=== PATIENT | female | born 1985 | race African-American/Black ===

== ENCOUNTER → 2018-11-02 | Day surgery (SDC) | payer BC, MEDICARE ==
[2018-11-01 16:44] LABS: EOSINOPHILS # (AUTO) 0.3 (0.0-0.4); HEMATOCRIT 33.4 % (34.2-44.1); HEMOGLOBIN 10.8 g/dL (12.0-16.0); LYMPHOCYTES # (AUTO) 2.2 (1.0-3.2); LYMPHOCYTES % 53.6 % (18.0-39.1); MEAN CORPUSCULAR HEMOGLOBIN 28.5 pg (28-32); MEAN CORPUSCULAR HGB CONC 32.3 g/dL (31-35); MEAN CORPUSCULAR VOLUME 88.1 fL (81-99); MONOCYTES # (AUTO) 0.3 (0.2-0.8); MONOCYTES % 7.7 % (4.4-11.3); NEUTROPHILS # (AUTO) 1.2 (2.1-6.9); NEUTROPHILS % 29.5 % (38.7-80.0); PLATELET COUNT 184 x10e3/uL (140-360); RED BLOOD COUNT 3.79 x10e6/uL (3.6-5.1); RED CELL DISTRIBUTION WIDTH 15.7 % (11.7-14.4)
[~2018-11-02] MED LIST: BOTULINUM TOXIN TYPE A 100 UNIT VIAL IM ONE; DEXILANT60 MG PO; FENTANYL CITRATE/PF 100MCG/2 ML INJ ONE; FYCOMPA PO; KEPPRA500 MG PO; LEVOTHYROXINE75 MCG PO; LYRICA50 MG PO; MIDAZOLAM HCL 2 MG/2 ML VIAL ONE; MIRALAX119 GM PO; MORPHINE SULFATE INJ 10 MG/ML ONE; MS CONTIN15 MG PO; PHENERGAN25 MG/1 M1 PO; PROPOFOL IV EMULSION 10 MG/ML 20 ML VIAL ONE; TOPIRAMATE100 MG PO; TRAZODONE HCL50 MG PO; VIT D2 PO
--- OUTSIDE RECORDS SUMMARY | 2018-11-02 06:24 | XMS REPORT | Clinical Summary ---
Author Author [facility] Organization [facility] Address Unknown Phone Unavailable Care Team Providers Care Skin Carver Name Role Phone Belle Darling MD PCP Allergies Comments Active Allergy Reactions Severity Noted Date Codeine Hives, High 07/07/2016 Swelling, Photosensitiv ity, Shortness Of Breath Headaches headaches Ketorolac Itching, 06/14/2017 Swelling, Other (See Comments) Tramadol Hives, 01/21/2017 Swelling Medications End Date Status Medication Sig Dispensed Refills Start Date Active chlorzoxazone 375 mg Take 500 mg 0 tablet by mouth 3 (three) times a day. Active pregabalin (LYRICA) 25 MG Take 75 mg by 0 capsule mouth daily. 7 Increased to 150mg Active levothyroxine (SYNTHROID, Take 75 mcg 0 LEVOXYL) 50 mcg tablet by mouth every morning. Active DULoxetine (CYMBALTA) 30 Take 60 mg by 0 MG capsule mouth daily. Active amitriptyline (ELAVIL) 25 Take 25 mg by 0 MG tablet mouth nightly. Active topiramate (TOPAMAX) 100 Take 200 mg 0 MG tablet by mouth 2 (two) times a day. Active POLYETHYLENE GLYCOL 3350 Take 2 0 (MIRALAX ORAL) packets by mouth 2 (two) times a day. Active escitalopram (LEXAPRO) 20 Take 20 mg by 0 MG tablet mouth daily. Active dexlansoprazole Take 60 mg by 0 (DEXILANT) 60 mg capsule mouth daily. Active promethazine (PHENERGAN) Take 25 mg by 0 25 MG tablet mouth 4 (four) times a day. Active zolpidem (AMBIEN) 10 mg Take 10 mg by 0 tablet mouth nightly as needed for sleep. Active ZOLMitriptan (ZOMIG) 5 mg 1 spray into 0 nasal solution each nostril as needed for migraine. Active levETIRAcetam (KEPPRA) TAKE ONE (1) 1 1000 MG tablet TABLET(S) BY 8 MOUTH THREE TIMES A DAY. Active morPHINE (MSIR) 15 MG Take 15 mg by 0 tablet mouth every 6 (six) hours as needed for severe pain. Active clonAZEPAM (KlonoPIN) 0.5 Take 0.25 mg 0 MG tablet by mouth daily. 10/21/2019 Active ferrous gluconate Take 1 tablet 90 tablet 3 (FERGON) 324 MG tablet (324 mg 9 total) by mouth daily with breakfast. 10/21/2019 Active ergocalciferol (VITAMIN Take 1 12 capsule 3 D2) 50,000 unit capsule capsule 9 (50,000 Units total) by mouth once a week. 12/10/2017 Discontinued HYDROcodone-acetaminophen Take 1 tablet 0 (NORCO) 10-325 mg per by mouth tablet every 6 (six) hours as needed for moderate pain. 12/11/2017 Discontinued metoprolol tartrate Take 25 mg by 0 (LOPRESSOR) 25 mg tablet mouth 2 (two) 7 times a day. 12/10/2017 Discontinued ARIPiprazole (ABILIFY) 5 Take 5 mg by 0 MG tablet mouth. 10/19/2018 Discontinued ketoconazole (NIZORAL) 2 Apply 1 0 % cream application topically. 08/02/2018 Discontinued mirtazapine (REMERON) 15 Take 15 mg by 0 MG tablet mouth nightly. 03/07/2018 Discontinued propranolol (INDERAL) 40 Take 40 mg by 0 MG tablet mouth 3 (three) times a day. 03/07/2018 Discontinued pilocarpine (SALAGEN) 5 Take 5 mg by 0 MG tablet mouth 4 (four) times a day. 11/09/2017 Discontinued tiZANidine (ZANAFLEX) 4 Take 4 mg by 0 MG tablet mouth every 8 (eight) hours as needed for muscle spasms. 12/10/2017 Discontinued cholecalciferol, vitamin Take 1,000 0 D3, (VITAMIN D3) 1,000 Units by unit capsule mouth daily. 12/10/2017 Discontinued magnesium oxide 250 mg Take 250 mg 0 tablet by mouth daily. 08/02/2018 Discontinued oxyCODone-acetaminophen Take 1 tablet 0 (PERCOCET) 10-325 mg per by mouth 3 tablet (three) times a day. 12/11/2017 Discontinued pantoprazole (PROTONIX) Take 40 mg by 0 40 MG EC tablet mouth daily. 08/02/2018 Discontinued sucralfate (CARAFATE) 1 Take 1 g by 0 gram tablet mouth 4 (four) times a day. 11/24/2017 linaclotide (LINZESS) 145 Take 1 15 capsule 0 mcg capsuleIndications: capsule (145 8 Other constipation mcg total) by mouth daily before breakfast for 15 days. 12/10/2017 Discontinued methylPREDNISolone Take 4 mg by 0 (MEDROL) 4 MG tablet mouth daily. 03/07/2018 Discontinued linaclotide (LINZESS) 145 Take 1 30 capsule 3 mcg capsuleIndications: capsule (145 8 Constipation, unspecified mcg total) by constipation type mouth daily before breakfast. 12/10/2017 Discontinued ondansetron (ZOFRAN) 4 MG Take 1 tablet 120 tablet 0 tablet (4 mg total) 8 by mouth every 6 (six) hours for 30 days. 03/07/2018 Discontinued brexpiprazole (REXULTI) 2 Take 2 mg by 0 mg tablet mouth daily. 03/07/2018 Discontinued divalproex (DEPAKOTE) 500 Take 500 mg 0 MG EC tablet by mouth 3 (three) times a day. 08/02/2018 Discontinued sertraline (ZOLOFT) 50 MG Take 50 mg by 0 tablet mouth daily. Active Problems Problem Noted Date Chronic intractable pain 10/11/2018 Abnormal LFTs 07/20/2018 RUQ pain 07/20/2018 Weight loss 07/20/2018 Seizure disorder 07/20/2018 Hematemesis without nausea 08/31/2017 Chest pain 05/31/2017 Urinary retention 05/11/2017 Gastroesophageal reflux disease 04/22/2017 Dyspepsia 04/22/2017 Heme positive stool 04/22/2017 Iron deficiency anemia 04/22/2017 GI bleed 04/09/2017 Gastrointestinal hemorrhage 04/09/2017 Overview: Added automatically from request for surgery [id number] Abdominal pain 04/09/2017 Overview: Added automatically from request for surgery [id number] Gastrointestinal hemorrhage with melena 04/09/2017 Overview: Added automatically from request for surgery [id number] Encounters Care Team Description Date Type Specialty Jeremy Lujan MD Abnormal LFTs (Primary Dx); Hepatic steatosis 10/27/2018 Office Visit Hepatology Belle Darling MD Drug-seeking behavior (Primary Dx); Conversion disorder 10/25/2018 Extended Internal Medicine Medical Review Belle Darling MD 10/21/2018 Orders Only Internal Medicine Belle Darling MD Arthralgia, unspecified joint 10/19/2018 Hospital Radiology Encounter Belle Darling MD Arthralgia, unspecified joint 10/19/2018 Hospital Radiology Encounter Belle Darling MD Arthralgia, unspecified joint 10/19/2018 Hospital Radiology Encounter Belle Darling MD Arthralgia, unspecified joint 10/19/2018 Hospital Radiology Encounter Belle Darling MD Arthralgia, unspecified joint 10/19/2018 Hospital Radiology Encounter Belle Darling MD Arthralgia, unspecified joint 10/19/2018 Hospital Radiology Encounter Belle Darling MD Arthralgia, unspecified joint 10/19/2018 Hospital Radiology Encounter Belle Darling MD Arthralgia, unspecified joint 10/19/2018 Hospital Radiology Encounter Belle Darling MD Arthralgia, unspecified joint 10/19/2018 Hospital Radiology Encounter Belle Darling MD Arthralgia, unspecified joint 10/19/2018 Hospital Radiology Encounter Belle Darling MD Seizure disorder (HCC) (Primary Dx); Abdominal pain, unspecified abdominal location; Other iron deficiency anemia; Arthralgia, unspecified joint; Hypothyroidism, unspecified type; Rash 10/19/2018 Office Visit Internal Medicine Bhumika Claudio 10/12/2018 Telephone Gastroenterology Jaqui Jarrett MD Roberts, Matthew Thomas, DO Chronic intractable pain (Primary Dx) 10/11/2018 Emergency Emergency Medicine 10/11/2018 Travel Bhumika Claudio 10/04/2018 Telephone Gastroenterology N/A 08/24/2018 Intake Access Los Benavidez MD Preop cardiovascular exam 08/04/2018 Hospital Radiology Encounter Los Benavidez MD Preop cardiovascular exam (Primary Dx) 08/04/2018 Transcribe Access Orders Jeremy Lujan MD Abnormal LFTs; RUQ pain 08/02/2018 Hospital Radiology Encounter Jeremy Lujan MD Abnormal LFTs (Primary Dx); RUQ pain 07/12/2018 Office Visit Hepatology Aster Lynn MA 07/12/2018 Orders Only Hepatology Jeremy Lujan MD Abnormal LFTs (Primary Dx); RUQ pain; Weight loss; Seizure disorder (HCC) 06/20/2018 Office Visit Hepatology Christie Wing MA 06/13/2018 Telephone Access Sarah Hernandez RN Referral (referral to general hepatology) 06/10/2018 Telephone Transplant Griffin Vargas MD Elevated liver enzymes (Primary Dx) 06/09/2018 Office Visit Gastroenterology Reynaldo Cespedes MD Abnormal radiographic examination 06/06/2018 Hospital Radiology Encounter Reynaldo Cespedes MD EEG, abnormal (Primary Dx); Abnormal radiographic examination 05/31/2018 Transcribe Access Orders Corey Christianson MD Medication side effect, initial encounter (Primary Dx); Lethargy; Dizziness 03/07/2018 Emergency Emergency Medicine - 03/08/2018 Wilder Fierro MD 03/07/2018 Anesthesia Gastroenterology Event Milagros Tafoya MD ENTEROSCOPY, SINGLE BALLOON, TRANSORAL, USING OVERTUBE EITHER REMOVAL OR POSSIBLE TATTOO 03/07/2018 Surgery Gastroenterology Milagros Tafoya MD 03/07/2018 Hospital Gastroenterology Encounter Griffin Vargas MD Hematemesis without nausea (Primary Dx); Iron deficiency anemia due to chronic blood loss 01/07/2018 Office Visit Gastroenterology Harper Almazan MA 01/07/2018 Telephone Gastroenterology Harper Almazan MA 01/04/2018 Telephone Gastroenterology Harper Almazan MA 12/30/2017 Telephone Gastroenterology Ninoska Mora MD Chest pain, unspecified type (Primary Dx) 12/24/2017 Emergency Emergency Medicine Dell Mann MD Chest pain, unspecified type (Primary Dx) 12/10/2017 Hospital General Internal Medicine - Encounter 12/11/2017 Harper Almazan MA 12/10/2017 Telephone Gastroenterology Steve Bonds MD Abdominal pain, right upper quadrant 12/08/2017 Hospital Radiology Encounter Steve Bonds MD Abdominal pain, right upper quadrant (Primary Dx) 12/07/2017 Transcribe Access Orders Ray Mcdaniels MD Chronic abdominal pain (Primary Dx); Non-intractable vomiting with nausea, unspecified vomiting type 12/04/2017 Emergency Emergency Medicine - 12/05/2017 Griffin Vargas MD Constipation, unspecified constipation type (Primary Dx); Generalized abdominal pain; Hematemesis without nausea; Other constipation 11/30/2017 Office Visit Gastroenterology Griffin Vargas MD 11/30/2017 Telephone Gastroenterology Griffin Vargas MD 11/30/2017 Telephone Gastroenterology Jose Angel Wilson DO Sprain of low back, initial encounter (Primary Dx) 11/23/2017 Emergency Emergency Medicine Griffin Vargas MD Left upper quadrant pain; Lower abdominal pain 11/15/2017 Hospital Radiology Encounter Griffin Vargas MD Left upper quadrant pain; Lower abdominal pain 11/15/2017 Hospital Radiology Encounter Griffin Vargas MD Other constipation (Primary Dx); Left upper quadrant pain; Lower abdominal pain; Hematemesis without nausea 11/09/2017 Office Visit Gastroenterology Griffin Vargas MD 11/09/2017 Telephone Gastroenterology Harper Almazan MA 11/08/2017 Telephone Gastroenterology after 11/01/2017 Immunizations Name Dates Previously Given Next Due FLUCELVAX QUAD PF (0.5mL 09/03/2017 syringe) Family History Medical History Relation Name Comments Heart disease Father Diabetes Mother Relation Name Status Comments Father Mother Alive Social History Date Tobacco Use Types Packs/Day Years Used Never Smoker Smokeless Tobacco: Never Used Alcohol Use Drinks/Week oz/Week Comments No Sex Assigned at Date Recorded Not on file Industry Job Start Date Occupation Not on file Not on file Not on file Travel End Travel History Travel Start No recent travel history available. Last Filed Vital Signs Time Taken Vital Sign Reading 10/27/2018 10:41 AM CDT Blood Pressure 125/68 10/27/2018 10:41 AM CDT Pulse 68 10/11/2018 8:20 AM [facility] Temperature 35.6 C (96.1 F) 10/11/2018 8:20 AM [facility] Respiratory Rate 18 10/19/2018 11:18 AM [facility] Oxygen Saturation 100% - Inhaled Oxygen - Concentration 10/27/2018 10:41 AM CDT Weight 89.2 kg (196 lb 9.6 oz) 10/27/2018 10:41 AM CDT Height 170.2 cm (5' 7") 10/27/2018 10:41 AM CDT Body Mass Index 30.79 Plan of Treatment Care Team Description Date Type Specialty Belle Darling MD [address] [facility] [address] [place], [place] [id number] 11/07/2018 Office Visit Internal Medicine Belle Darling MD [address] [facility] [address] [place], [place] [id number] 11/08/2018 Office Visit Internal Medicine Jeremy Lujan MD [address] [facility] [address] [place], [place] [id number] 05/04/2019 Office Visit Hepatology Health Maintenance Due Date Last Done Comments CERVICAL CANCER SCREENING 2005 INFLUENZA VACCINE 03/16/2018 09/03/2017 Procedures Comments Procedure Name Priority Date/Time Associated Diagnosis XR WRIST 3VW BILATERAL Routine 10/19/2018 Arthralgia, unspecified 3:58 PM [facility] joint XR SHOULDERS BILATERAL Routine 10/19/2018 Arthralgia, unspecified 3:57 PM [facility] joint XR HANDS 3 VW BILATERAL Routine 10/19/2018 Arthralgia, unspecified 3:57 PM [facility] joint XR ELBOW 2 VW RIGHT Routine 10/19/2018 Arthralgia, unspecified 3:57 PM [facility] joint XR ELBOW 2 VW LEFT Routine 10/19/2018 Arthralgia, unspecified 3:57 PM [facility] joint XR ANKLE 3 VW BILATERAL Routine 10/19/2018 Arthralgia, unspecified 3:56 PM [facility] joint XR SACROILIAC JOINTS 3+ Routine 10/19/2018 Arthralgia, unspecified VW 3:56 PM [facility] joint XR KNEE 3 VW BILATERAL Routine 10/19/2018 Arthralgia, unspecified 3:56 PM [facility] joint XR HIPS BILATERAL AP Routine 10/19/2018 Arthralgia, unspecified LATERAL W AP PELVIS 3:55 PM [facility] joint XR FOOT 3 VW BILATERAL Routine 10/19/2018 Arthralgia, unspecified 3:55 PM [facility] joint URINALYSIS, MICRO UA Routine 10/19/2018 SCREEN WITH MICROSCOPY 12:37 PM [facility] TSH REFLEX TO T4F Routine 10/19/2018 Hypothyroidism, 12:37 PM [facility] unspecified type SEDIMENTATION RATE Routine 10/19/2018 Arthralgia, unspecified 12:37 PM [facility] joint C-REACTIVE PROTEIN Routine 10/19/2018 Arthralgia, unspecified 12:37 PM [facility] joint KESHIA CASCADING REFLEX Routine 10/19/2018 Arthralgia, unspecified 12:37 PM [facility] joint TOTAL IRON BINDING Routine 10/19/2018 Other iron deficiency CAPACITY 12:37 PM [facility] anemia RETICULOCYTE COUNT, Routine 10/19/2018 Other iron deficiency AUTOMATED 12:37 PM [facility] anemia LDH Routine 10/19/2018 Other iron deficiency 12:37 PM [facility] anemia HAPTOGLOBIN Routine 10/19/2018 Other iron deficiency 12:37 PM [facility] anemia FERRITIN LEVEL Routine 10/19/2018 Other iron deficiency 12:37 PM [facility] anemia VITAMIN B12 LEVEL Routine 10/19/2018 Other iron deficiency 12:37 PM [facility] anemia VITAMIN D 25 HYDROXY Routine 10/19/2018 Abdominal pain, LEVEL 12:37 PM [facility] unspecified abdominal location HIV 1/2 ANTIGEN/ANTIBODY, Routine 10/19/2018 Abdominal pain, FOURTH GENERATION W/RFL 12:37 PM [facility] unspecified abdominal location HEMOGLOBIN A1C Routine 10/19/2018 Abdominal pain, 12:37 PM [facility] unspecified abdominal location COMPREHENSIVE METABOLIC Routine 10/19/2018 Other iron deficiency PANEL 12:37 PM [facility] anemia CBC WITH PLATELET AND Routine 10/19/2018 Other iron deficiency DIFFERENTIAL 12:37 PM [facility] anemia XR ANKLE 3+ VW RIGHT STAT 10/11/2018 9:19 AM [facility] XR HIP 2-3 VIEWS LEFT STAT 10/11/2018 9:16 [address] [facility] [address] ABDOMEN PELVIS W STAT 10/11/2018 CONTRAST 8:58 AM [facility] GRAM STAIN Routine 10/11/2018 8:10 AM [facility] URINE CULTURE Routine 10/11/2018 8:10 AM [facility] URINE DRUGS OF ABUSE STAT 10/11/2018 SCREEN 7:29 AM [facility] HCG QUALITATIVE, URINE Routine 10/11/2018 SCREEN 7:29 AM [facility] URINALYSIS SCREEN AND Routine 10/11/2018 MICROSCOPY, WITH REFLEX 7:29 AM [facility] TO CULTURE US DUPLEX VENOUS LOWER STAT 10/11/2018 EXTREMITY LEFT 6:01 AM [facility] ESTIMATED GFR STAT 10/11/2018 6:00 AM [facility] ALCOHOL LEVEL, BLOOD STAT 10/11/2018 6:00 AM [facility] LIPASE LEVEL STAT 10/11/2018 6:00 AM [facility] COMPREHENSIVE METABOLIC STAT 10/11/2018 PANEL 6:00 AM [facility] PARTIAL THROMBOPLASTIN STAT 10/11/2018 TIME (PTT) 6:00 AM [facility] PROTHROMBIN TIME WITH INR STAT 10/11/2018 6:00 AM [facility] HC COMPLETE BLD COUNT STAT 10/11/2018 W/AUTO DIFF 6:00 AM [facility] ECG 12-LEAD Routine 08/04/2018 Preop cardiovascular exam 6:53 PM [facility] XR CHEST 2 VW Routine 08/04/2018 Preop cardiovascular exam 6:12 PM [facility] SURGICAL PATHOLOGY Routine 08/02/2018 REQUEST 4:30 PM [facility] IR TRANSJUGULAR LIVER Routine 08/02/2018 Abnormal LFTs BIOPSY 12:31 PM [facility] RUQ pain F-ACTIN (SMOOTH MUSCLE) Routine 07/04/2018 Abnormal LFTs ANTIBODY, IGG 12:00 AM [facility] RUQ pain Weight loss Seizure disorder (HCC) KESHIA SCREEN W IFA W REFLEX Routine 07/04/2018 Abnormal LFTs TO TITER 12:00 AM [facility] RUQ pain Weight loss Seizure disorder (HCC) MITOCHONDRIAL ANTIBODY Routine 07/04/2018 Abnormal LFTs W/REFL TITER 12:00 AM [facility] RUQ pain Weight loss Seizure disorder (HCC) GGT Routine 07/04/2018 Abnormal LFTs 12:00 AM [facility] RUQ pain Weight loss Seizure disorder (HCC) IMMUNOGLOBULIN G, A, M Routine 07/04/2018 Abnormal LFTs 12:00 AM [facility] RUQ pain Weight loss Seizure disorder (HCC) PROTHROMBIN TIME WITH INR Routine 07/04/2018 Abnormal LFTs 12:00 AM [facility] RUQ pain Weight loss Seizure disorder (HCC) CBC WITH PLATELET AND Routine 07/04/2018 Abnormal LFTs DIFFERENTIAL 12:00 AM [facility] RUQ pain Weight loss Seizure disorder (HCC) COMPREHENSIVE METABOLIC Routine 07/04/2018 Abnormal LFTs PANEL 12:00 AM [facility] RUQ pain Weight loss Seizure disorder (HCC) MRI ABDOMEN WO CONTRAST Routine 06/06/2018 Abnormal radiographic 9:25 AM CDT examination ESTIMATED GFR Routine 05/10/2018 2:29 PM CDT T3, FREE Routine 05/10/2018 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 TRANSFERRIN LEVEL Routine 05/10/2018 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 TOTAL IRON BINDING Routine 05/10/2018 Relative anemia CAPACITY 2:29 PM CDT Myxedema heart disease FERRITIN LEVEL Routine 05/10/2018 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 BASIC METABOLIC PANEL Routine 05/10/2018 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 HC COMPLETE BLD COUNT Routine 05/10/2018 Relative anemia W/AUTO DIFF 2:29 PM CDT Myxedema heart disease T4, FREE Routine 05/10/2018 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 THYROID STIMULATING Routine 05/10/2018 Relative anemia HORMONE 2:29 PM CDT Myxedema heart disease ZZESTIMATED GFR Routine 03/16/2018 12:16 PM CDT HEPATITIS C ANTIBODY Routine 03/16/2018 Anemia, unspecified type 12:16 PM CDT HIV 1, 2 ANTIBODY Routine 03/16/2018 Anemia, unspecified type 12:16 PM CDT HEPATITIS B SURFACE Routine 03/16/2018 Anemia, unspecified type ANTIBODY 12:16 PM CDT METHYLMALONIC ACID, SERUM Routine 03/16/2018 Anemia, unspecified type 12:16 PM CDT VITAMIN B12 LEVEL Routine 03/16/2018 Anemia, unspecified type 12:16 PM CDT MICROALBUMIN, URINE, Routine 03/16/2018 Anemia, unspecified type RANDOM 12:16 PM CDT URINALYSIS, AUTOMATED Routine 03/16/2018 Anemia, unspecified type WITH MICROSCOPY 12:16 PM CDT VALPROIC ACID LEVEL Routine 03/16/2018 Anemia, unspecified type 12:16 PM CDT HEMOGLOBIN A1C Routine 03/16/2018 Anemia, unspecified type 12:16 PM CDT T4, FREE Routine 03/16/2018 Anemia, unspecified type 12:16 PM CDT T3, FREE Routine 03/16/2018 Anemia, unspecified type 12:16 PM CDT THYROID STIMULATING Routine 03/16/2018 Anemia, unspecified type HORMONE 12:16 PM CDT LIPID PANEL Routine 03/16/2018 Anemia, unspecified type 12:16 PM CDT COMPREHENSIVE METABOLIC Routine 03/16/2018 Anemia, unspecified type PANEL 12:16 PM CDT VITAMIN D 25 HYDROXY Routine 03/16/2018 Anemia, unspecified type LEVEL 12:16 PM CDT EEG AWAKE/DROWSY LESS STAT 03/07/2018 THAN 41 MIN 11:16 PM CDT POC GLUCOSE Routine 03/07/2018 10:32 PM CDT ECG 12-LEAD STAT 03/07/2018 9:56 PM CDT MRA HEAD WO CONTRAST STAT 03/07/2018 8:07 PM CDT MRA NECK WO CONTRAST STAT 03/07/2018 8:07 PM CDT MRI BRAIN W WO CONTRAST STAT 03/07/2018 8:06 PM CDT LIPASE LEVEL Routine 03/07/2018 5:45 PM CDT ZZESTIMATED GFR Routine 03/07/2018 5:45 PM CDT TROPONIN Routine 03/07/2018 5:45 PM CDT COMPREHENSIVE METABOLIC Routine 03/07/2018 PANEL 5:45 PM CDT HC COMPLETE BLD COUNT Routine 03/07/2018 W/AUTO DIFF 5:45 PM CDT POC GLUCOSE Routine 03/07/2018 5:38 PM CDT XR CHEST 1 VW PORTABLE STAT 03/07/2018 5:[address] HEAD WO CONTRAST STAT 03/07/2018 4:06 PM CDT POC GLUCOSE Routine 03/07/2018 1:44 PM CDT ENTEROSCOPY, SINGLE 03/07/2018 Abnormal finding on GI BALLOON, TRANSORAL, USING 10:00 AM CDT tract imaging OVERTUBE Epigastric pain Anemia Melena Nausea Weight loss Neoplasm of small intestine TROPONIN STAT 12/24/2017 9:26 PM CDT URINALYSIS SCREEN AND STAT 12/24/2017 MICROSCOPY, WITH REFLEX 8:14 PM CDT TO CULTURE URINE CULTURE STAT 12/24/2017 8:11 PM CDT ECG ED PRELIMINARY Routine 12/24/2017 INTERPRETATION 7:36 PM CDT HCG QUALITATIVE, SERUM STAT 12/24/2017 SCREEN 5:20 PM CDT ZZESTIMATED GFR STAT 12/24/2017 5:20 PM CDT B NATRIURETIC PEPTIDE STAT 12/24/2017 5:20 PM CDT TROPONIN STAT 12/24/2017 5:20 PM CDT COMPREHENSIVE METABOLIC STAT 12/24/2017 PANEL 5:20 PM CDT HC COMPLETE BLD COUNT STAT 12/24/2017 W/AUTO DIFF 5:20 PM CDT XR CHEST 2 VW STAT 12/24/2017 5:10 PM CDT ECG 12-LEAD STAT 12/24/2017 4:49 PM CDT ECG 12-LEAD Routine 12/11/2017 2:06 PM CDT ECHOCARDIOGRAM 2D Routine 12/11/2017 COMPLETE W MMODE SPECTRAL 1:29 PM CDT COLOR DOPPLER ([id number]) TROPONIN Timed 12/11/2017 10:34 AM CDT ECG 12-LEAD Routine 12/11/2017 8:30 AM CDT ZZESTIMATED GFR Routine 12/11/2017 12:17 AM CDT TROPONIN Timed 12/11/2017 12:17 AM CDT LIPID PANEL Routine 12/11/2017 12:17 AM CDT BASIC METABOLIC PANEL Routine 12/11/2017 12:17 AM CDT CBC HEMOGRAM Routine 12/11/2017 12:17 AM CDT US ABDOMEN COMPLETE Routine 12/08/2017 Abdominal pain, right 2:49 PM CDT upper quadrant ZZESTIMATED GFR STAT 12/04/2017 11:56 PM CDT LIPASE LEVEL STAT 12/04/2017 11:56 PM CDT HC COMPLETE BLD COUNT STAT 12/04/2017 W/AUTO DIFF 11:56 PM CDT COMPREHENSIVE METABOLIC STAT 12/04/2017 PANEL 11:56 PM CDT URINALYSIS SCREEN AND Routine 12/04/2017 MICROSCOPY, WITH REFLEX 9:30 PM CDT TO CULTURE URINE CULTURE Routine 12/04/2017 9:10 PM CDT XR LUMBAR SPINE 2 OR 3 VW STAT 11/23/2017 2:12 PM CDT MRI PELVIS W WO CONTRAST Routine 11/15/2017 Left upper quadrant pain 10:41 AM CDT Lower abdominal pain MRI ABDOMEN W WO CONTRAST Routine 11/15/2017 Left upper quadrant pain 10:07 AM CDT Lower abdominal pain after 11/01/2017 Results * XR Wrist 3Vw Bilateral (10/19/2018 3:58 PM [facility]) Narrative Performed At EXAMINATION: XR WRIST 3VW BILATERAL HM [facility] INDICATION: M25.50 Pain in unspecified joint, joint pains COMPARISON: None IMPRESSION: 3 views of each wrist were obtained. No radiographically visible fracture or dislocation. No significant joint space narrowing. No subluxations. [facility]-[id number] Procedure Note Interface, Radiology Results Incoming - 10/19/2018 4:06 PM [facility] EXAMINATION: XR WRIST 3VW BILATERAL INDICATION: M25.50 Pain in unspecified joint, joint pains COMPARISON: None IMPRESSION: 3 views of each wrist were obtained. No radiographically visible fracture or dislocation. No significant joint space narrowing. No subluxations. [facility]-[id number] Performing Organization Address [facility] Phone Number [facility] [address] [place] [address] * XR Shoulders Bilateral (10/19/2018 3:57 PM [facility]) Narrative Performed At EXAMINATION: XR SHOULDERS BILATERAL [facility] INDICATION: M25.50 Pain in unspecified joint, joint pains COMPARISON: None IMPRESSION: 3 views of each shoulder were obtained. No significant joint space narrowing. No evidence of arthrosis. No visible fracture or dislocation. [facility]-[id number] Procedure Note Interface, Radiology Results Incoming - 10/19/2018 4:04 PM [facility] EXAMINATION: XR SHOULDERS BILATERAL INDICATION: M25.50 Pain in unspecified joint, joint pains COMPARISON: None IMPRESSION: 3 views of each shoulder were obtained. No significant joint space narrowing. No evidence of arthrosis. No visible fracture or dislocation. [facility]-[id number] Performing Organization Address [facility] [facility] Phone Number RADIANT [address] [place] [address] * XR Hands 3 Vw Bilateral (10/19/2018 3:57 PM [facility]) Narrative Performed At EXAMINATION:XR HANDS 3 VW BILATERAL HM RADIANT CLINICAL HISTORY:M25.50 Pain in unspecified joint, joint pains COMPARISON:None. TECHNIQUE: AP, lateral, and oblique bilateral hand radiographs are reviewed. FINDINGS: The joint spaces and alignment are normal. Bone mineralization is normal. There is no bone erosion or other focal or aggressive bone lesion. An old posttraumatic deformity of the right fifth metacarpal is noted. No soft tissue abnormality is seen. IMPRESSION: No radiographic stigmata of degenerative, inflammatory, or crystal deposition arthropathy. [facility]-[id number] Procedure Note Interface, Radiology Results Incoming - 10/19/2018 4:45 PM [facility] EXAMINATION: XR HANDS 3 VW BILATERAL CLINICAL HISTORY: M25.50 Pain in unspecified joint, joint pains COMPARISON: None. TECHNIQUE: AP, lateral, and oblique bilateral hand radiographs are reviewed. FINDINGS: The joint spaces and alignment are normal. Bone mineralization is normal. There is no bone erosion or other focal or aggressive bone lesion. An old posttraumatic deformity of the right fifth metacarpal is noted. No soft tissue abnormality is seen. IMPRESSION: No radiographic stigmata of degenerative, inflammatory, or crystal deposition arthropathy. [facility]-[id number] Performing Organization Address [facility] Phone Number [facility]ANT [address] [place] [address] * XR Elbow 2 Vw Right (10/19/2018 3:57 PM [facility]) Narrative Performed At EXAMINATION: XR ELBOW 2 VW RIGHT RADIANT INDICATION: M25.50 Pain in unspecified joint, joint pains COMPARISON: None IMPRESSION: 2 views of the right elbow were obtained. Osseous mineralization is within normal limits. No visible acute fracture or dislocation. No significant arthrosis. [facility]-[id number] Procedure Note Interface, Radiology Results Incoming - 10/19/2018 4:02 PM [facility] EXAMINATION: XR ELBOW 2 VW RIGHT INDICATION: M25.50 Pain in unspecified joint, joint pains COMPARISON: None IMPRESSION: 2 views of the right elbow were obtained. Osseous mineralization is within normal limits. No visible acute fracture or dislocation. No significant arthrosis. [facility]-[id number] Performing Organization Address [facility] Phone Number RADIANT [address] [place] [address] * XR Elbow 2 Vw Left (10/19/2018 3:57 PM [facility]) Narrative Performed At EXAMINATION: XR ELBOW 2 VW LEFT RADIANT INDICATION: M25.50 Pain in unspecified joint, joint pains COMPARISON: None IMPRESSION: 2 views of the left elbow were obtained. Osseous mineralization within normal limits. No significant arthrosis. No visible erosions. No visible fracture or dislocation. [facility]-[id number] Procedure Note Interface, Radiology Results Incoming - 10/19/2018 4:01 PM [facility] EXAMINATION: XR ELBOW 2 VW LEFT INDICATION: M25.50 Pain in unspecified joint, joint pains COMPARISON: None IMPRESSION: 2 views of the left elbow were obtained. Osseous mineralization within normal limits. No significant arthrosis. No visible erosions. No visible fracture or dislocation. [facility]-[id number] Performing Organization Address [facility] Phone Number RADIANT [address] [place] [address] * XR Ankle 3 Vw Bilateral (10/19/2018 3:56 PM [facility]) Narrative Performed At EXAMINATION:XR ANKLE 3 VW BILATERAL HM RADIANT CLINICAL HISTORY:M25.50 Pain in unspecified joint, joint pains COMPARISON:None. IMPRESSION: Bones are well-mineralized. No fracture or dislocation. Each ankle mortise is maintained. The soft tissues are unremarkable. [facility]-[id number] Procedure Note Interface, Radiology Results Incoming - 10/19/2018 4:56 PM [facility] EXAMINATION: XR ANKLE 3 VW BILATERAL CLINICAL HISTORY: M25.50 Pain in unspecified joint, joint pains COMPARISON: None. IMPRESSION: Bones are well-mineralized. No fracture or dislocation. Each ankle mortise is maintained. The soft tissues are unremarkable. [id number] Performing Organization Address [facility] Phone Number RADIANT [address] [place] [address] * XR Sacroiliac Joints 3+ Vw (10/19/2018 3:56 PM [facility]) Narrative Performed At EXAMINATION: XR SACROILIAC JOINTS 3VW HM RADIANT CLINICAL HISTORY: M25.50 Pain in unspecified joint, joint pains COMPARISON: CT of the abdomen and pelvis from October 11, 2018. FINDINGS: There are degenerative changes of the sacroiliac joints seen better on the CT exam with some sclerosis in the bone surrounding the joints and some areas of joint space narrowing. The CT exam also showed some areas of lucency in the anterior upper right sacrum which could be from areas of healing fracture and shows a large area of sclerosis in the regions around the screws in the upper sacrum and around the graft material in the L5-S1 disc. There are prevertebral clips at the upper S1 level and visualized lower lumbar region. IMPRESSION: Degenerative changes of sacroiliac joints seen better on the prior CT exam. Postoperative changes in the lumbar and upper sacral region. [facility]-[id number] Procedure Note Interface, Radiology Results Incoming - 10/19/2018 4:23 PM [facility] EXAMINATION: XR SACROILIAC JOINTS 3 VW CLINICAL HISTORY: M25.50 Pain in unspecified joint, joint pains COMPARISON: CT of the abdomen and pelvis from October 11, 2018. FINDINGS: There are degenerative changes of the sacroiliac joints seen better on the CT exam with some sclerosis in the bone surrounding the joints and some areas of joint space narrowing. The CT exam also showed some areas of lucency in the anterior upper right sacrum which could be from areas of healing fracture and shows a large area of sclerosis in the regions around the screws in the upper sacrum and around the graft material in the L5-S1 disc. There are prevertebral clips at the upper S1 level and visualized lower lumbar region. IMPRESSION: Degenerative changes of sacroiliac joints seen better on the prior CT exam. Postoperative changes in the lumbar and upper sacral region. [facility]-[id number] Performing Organization Address City/[employer] Phone Number RADIANT [address] [place] [address] * XR Knee 3 Vw Bilateral (10/19/2018 3:56 PM [facility]) Narrative Performed At EXAMINATION: XR KNEE 3 VW BILATERAL HM RADIANT INDICATION: M25.50 Pain in unspecified joint, joint pains COMPARISON: None IMPRESSION: 3 views of each knee were obtained. 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 No visible erosions. No fracture or dislocation. [facility]-[id number] Procedure Note Interface, Radiology Results Incoming - 10/19/2018 4:05 PM [facility] EXAMINATION: XR KNEE 3 VW BILATERAL INDICATION: M25.50 Pain in unspecified joint, joint pains COMPARISON: None IMPRESSION: 3 views of each knee were obtained. 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 No visible erosions. No fracture or dislocation. [facility]-[id number] Performing Organization Address City/[employer]/[facility] Phone Number [facility] [address] [place] [address] * XR Hips Bilateral Ap Lateral W Ap Pelvis (10/19/2018 3:55 PM [facility]) Narrative Performed At EXAMINATION: XR HIPS BILATERAL AP LATERAL W AP PELVIS HM RADIANT INDICATION: M25.50 Pain in unspecified joint, joint pains COMPARISON: None IMPRESSION: A frontal view of the pelvis and lateral views of each hip were obtained. Prior lumbosacral instrumentation. Mild arthrosis involving the right more than left sacroiliac joints. No significant arthrosis involving either hip. Anastomotic suture rows in the pelvis. [facility]-[id number] Procedure Note Interface, Radiology Results Incoming - 10/19/2018 4:03 PM [facility] EXAMINATION: XR HIPS BILATERAL AP LATERAL W AP PELVIS INDICATION: M25.50 Pain in unspecified joint, joint pains COMPARISON: None IMPRESSION: A frontal view of the pelvis and lateral views of each hip were obtained. Prior lumbosacral instrumentation. Mild arthrosis involving the right more than left sacroiliac joints. No significant arthrosis involving either hip. Anastomotic suture rows in the pelvis. [facility]-[id number] Performing Organization Address [facility] Phone Number [facility] [address] [place] [address] * XR Foot 3 Vw Bilateral (10/19/2018 3:55 PM [facility]) Narrative Performed At EXAMINATION:XR FOOT 3 VW BILATERAL HM RADIANT CLINICAL HISTORY:M25.50 Pain in unspecified joint, joint pains COMPARISON:None. TECHNIQUE: AP, lateral, and oblique bilateral foot radiographs are reviewed. FINDINGS: There is no fracture, subluxation, joint space abnormality, focal bone lesion, or soft tissue abnormality. IMPRESSION: No radiographic stigmata of degenerative, inflammatory, or crystal deposition arthropathy in the feet. [id number] Procedure Note Interface, Radiology Results Incoming - 10/19/2018 4:46 PM [facility] EXAMINATION: XR FOOT 3 VW BILATERAL CLINICAL HISTORY: M25.50 Pain in unspecified joint, joint pains COMPARISON: None. TECHNIQUE: AP, lateral, and oblique bilateral foot radiographs are reviewed. FINDINGS: There is no fracture, subluxation, joint space abnormality, focal bone lesion, or soft tissue abnormality. IMPRESSION: No radiographic stigmata of degenerative, inflammatory, or crystal deposition arthropathy in the feet. [id number] Performing Organization Address City/[facility]/Zipcode Phone Number JARRETTANT [address] [place] [address] * KESHIA CASCADING REFLEX (10/19/2018 12:37 PM [facility]) KESHIA screen NEGATIVE NEGATIVE [facility] Comment: [facility] A negative KESHIA Multiplex, with II Reflex to 11 Antibody [place] indicates the absence of detectable antibodies to component analytes consisting of double stranded DNA (dsDNA), chromatin, ribonucleoprotein (BENDER MACHINE), Hernandez/BENDER MACHINE (Sm/BENDER MACHINE), Hernandez (Sm), SS-A, SS-B, Halley-1, centromere B, Scl-70 and ribosomal P. A negative result should be interpreted in the context of the clinical and laboratory findings and does not rule out autoimmune disease characterized by other autoantibody specificities such as rheumatoid arthritis, autoimmune hepatitis, primary biliary cirrhosis, autoimmune thyroiditis, Reilly's disease, pernicious anemia, autoimmune neuropathies, vasculitis, celiac disease, and bullous disease. Visit Physician FAQs for interpretation of all antibodies in the [place], prevalence, and association with diseases at http://education.app2you/ faq/PBE100 Specimen Blood Resulting Agency Comment Performing Organization Information: Site ID: IG Name: [facility] Address: [address] [place] [phone] Director: Dr. Ninoska Person Performing Organization Address [facility] Phone Number Every1Mobile[address] [address] II * TSH reflex to T4 (10/19/2018 12:37 PM [facility]) TSH reflex to FT4 1.26 mIU/L [facility] Comment: [place] Reference Range > or=20 Years0.40-4.50 Ranges First trimester0.26-2.66 Second trimester 0.55-2.73 Third trimester0.43-2.91 Specimen Blood Resulting Agency Comment Performing Organization Information: Site ID: RGA Name: [facility] Address: [address] [place] [phone] Director: Julieta Zavaleta Performing Organization Address [facility] Phone Number Every1Mobile [address] [address] * HIV 1/2 ANTIGEN/ANTIBODY, FOURTH GENERATION W/RFL (10/19/2018 12:37 PM [facility]) HIV AG/AB 4th gen NON-REACTIVE NON-REACTIVE [facility] Comment: [place] HIV-1 antigen and HIV-1/HIV-2 antibodies were not detected. There is no laboratory evidence of HIV infection. PLEASE NOTE: This information has been disclosed to you from records whose confidentiality may be protected by state law.If your state requires such protection, then the state law prohibits you from making any further disclosure of the information without the specific written consent of the person to whom it pertains, or as otherwise permitted by law. A general authorization for the release of medical or other information is NOT sufficient for this purpose. For additional information please refer to http://education.Total Immersion.[employer]i/faq/XAQ589 (This link is being provided for informational/ educational purposes only.) The performance of this assay has not been clinically validated in patients less than 2 years old. Resulting Agency Comment Performing Organization Information: Site ID: RGA Name: [facility] Address: [address] [place] [phone] Director: Julieta Zavaleta Performing Organization Address City/State/Zipcode Phone Number Every1Mobile [address] [address] * Urinalysis, micro UA screen with microscopy (10/19/2018 12:37 PM [facility]) WBC, UA NONE SEEN < OR=5 /HPF [facility] [place] RBC, UA NONE SEEN < OR=2 /HPF [facility] [place] Squamous epithelial NONE SEEN < OR=5 /HPF [facility] cells, UA [place] Bacteria, UA NONE SEEN NONE SEEN /HPF [facility] [place] Hyaline casts, UA NONE SEEN NONE SEEN /LPF [facility] [place] Resulting Agency Comment Performing Organization Information: Site ID: RGA Name: [facility] Address: [address] [place] [phone] Director: Julieta Zavaleta Performing Organization Address City/[facility]/Zipcode Phone Number Every1Mobile [address] [address] * Total iron binding capacity (10/19/2018 12:37 PM [facility]) Only the most recent of 2 results within the time period is included. Iron level 44 40 - 190 mcg/dL [facility] [place] Iron binding capacity 319 250 - 450 mcg/dL (calc) [facility] [place] Iron saturation 14 11 - 50 % (calc) [facility] [place] Specimen Blood Resulting Agency Comment Performing Organization Information: Site ID: TY Name: [facility] Address: [address] [place] [phone] Director: Julieta Zavaleta Performing Organization Address [facility] Phone Number [facility] [place] [address] * Reticulocyte count, automated (10/19/2018 12:37 PM [facility]) Retic count, manual 1.5 % [facility] [place] Retic absolute, auto 53,400 20,000 - 80,000 cells/uL [facility] [place] Specimen Blood Resulting Agency Comment Performing Organization Information: Site ID: [facility] Name: [facility] Address: [address] [place] [phone] Director: Julieta Zavaleta Performing Organization Address [facility] Phone Number [facility] [place] [address] * Vitamin D 25 hydroxy level (10/19/2018 12:37 PM [facility]) Only the most recent of 2 results within the time period is included. Vitamin D, 25-hydroxy 6 (L) 30 - 100 ng/mL [facility] Comment: [place] Vitamin D Status 25-OH Vitamin D: Deficiency: <20 ng/mL Insufficiency: 20 - 29 ng/mL Optimal: > or=30 ng/mL For 25-OH Vitamin D testing on patients on D2-supplementation and patients for whom quantitation of D2 and D3 fractions is required, the QuestAssureD(TM) 25-OH VIT D, (D2,D3), LC/MS/MS is recommended: order code 39995 (patients >2yrs). For more information on this test, go to: http://education.Total Immersion.com/faq/HJJ664 (This link is being provided for informational/educational purposes only.) Specimen Blood Resulting Agency Comment Performing Organization Information: Site ID: [facility] Name: [facility] Address: [address] [place], [place] [phone] Director: Julieta Zavaleta Performing Organization Address City/[facility]/Zipcode Phone Number [employer] [place] [address] [place] [address] * Sedimentation rate (10/19/2018 12:37 PM [facility]) Sedimentation rate 9 < OR=20 mm/h [facility] [employer] [place] Specimen Blood Resulting Agency Comment Performing Organization Information: Site ID: RGA Name: [email or web address] Address: [address] [place] [phone] Director: Julieta Zavaleta Performing Organization Address City/[facility] Phone Number [employer] [place] [address] [place] [address] * CBC with platelet and differential (10/19/2018 12:37 PM [facility]) Only the most recent of 7 results within the time period is included. WBC 4.0 3.8 - 10.8 Thousand/uL [facility] [employer] [place] RBC 3.56 (L) 3.80 - 5.10 Million/uL [facility] [place] HGB 10.2 (L) 11.7 - 15.5 g/dL [facility] HCT 31.5 (L) 35.0 - 45.0 % [facility] [place] MCV 88.5 80.0 - 100.0 fL [facility] [place] MCH 28.7 27.0 - 33.[address] [facility] MCHC 32.4 32.0 - 36.0 g/dL [facility] [place] RDW 15.4 (H) 11.0 - 15.0 % [facility] [place] Platelet count 237 140 - 400 Thousand/uL [facility] [employer] [place] MPV 11.6 7.5 - 12.5 fL [facility] [place] Neutrophils, absolute 2,280 1,500 - 7,800 cells/uL [facility] [place] Lymphocytes, absolute 1,244 850 - 3,900 cells/uL [facility] [place] Monocytes, absolute 192 (L) 200 - 950 cells/uL [facility] [place] Eosinophils, absolute 232 15 - 500 cells/uL [facility] [place] Basophils, absolute 52 0 - 200 cells/uL [facility] [place] Neutrophils 57 % [facility] [place] Lymphocytes 31.1 % [facility] [place] Monocytes 4.8 % [facility] [place] Eosinophils 5.8 % [facility] [place] Basophils + RC 1.3 % [facility] [place] Specimen Blood Resulting Agency Comment Performing Organization Information: Site ID: RGA Name: [facility] Address: [address] [place] [phone] Director: Julieta Zavaleta Performing Organization Address [facility] [place] [address] * C-reactive protein (10/19/2018 12:37 PM [facility]) CRP 11.6 (H) <8.0 mg/L [facility] [place] Specimen Blood Resulting Agency Comment Performing Organization Information: Site ID: A Name: [facility] Address: [address] [place] [phone] Director: Julieta Zavaleta Performing Organization Address [facility] [place] [address] * LDH (10/19/2018 12:37 PM [facility]) LDH 196 100 - 200 U/L [facility] [place] Specimen Blood Resulting Agency Comment Performing Organization Information: Site ID: A Name: [facility] Address: [address] [place] [phone] Director: Julieta Zavaleta Performing Organization Address [facility] [place] [address] * Hemoglobin A1c (10/19/2018 12:37 PM [facility]) Only the most recent of 2 results within the time period is included. Hemoglobin A1C 5.1 <5.7 % of total Hgb [facility] Comment: [place] For the purpose of screening for the presence of diabetes: <5.7% Consistent with the absence of diabetes 5.7-6.4%Consistent with increased risk for diabetes (predi abetes) > or=6.5%Consistent with diabetes This assay result is consistent with a decreased risk of diabetes. Currently, no consensus exists regarding use of hemoglobin A1c for diagnosis of diabetes in children. According to [place] Diabetes Association (ADA) guidelines, hemoglobin A1c <7.0% represents optimal control in non- diabetic patients. Different metrics may apply to specific patient populations. Standards of Medical Care in Diabetes(ADA). Specimen Blood Resulting Agency Comment Performing Organization Information: Site ID: A Name: [facility] Address: [address] [place] [phone] Director: Julieta Zavaleta Performing Organization Address [facility] Phone Number Every1Mobile [address] [address] * Haptoglobin (10/19/2018 12:37 PM [facility]) Haptoglobin 83 43 - 212 mg/dL [facility] Spec[facility] Blood Resulting Agency Comment Performing Organization Information: Site ID: IG Name: [facility] Address: [address] [place] [phone] Director: Dr. Ninoska Person Performing Organization Address [facility] Phone Number Every1Mobile[address] [address] II * Ferritin level (10/19/2018 12:37 PM [facility]) Only the most recent of 2 results within the time period is included. Ferritin level 24 10 - 154 ng/mL [facility] [place] Specimen Blood Resulting Agency Comment Performing Organization Information: Site ID: RGA Name: [facility] Address: [address] [place] [phone] Director: Julieta Zavaleta Performing Organization Address [facility] Phone Number Every1[employer] [address] [address] * Vitamin B12 level (10/19/2018 12:37 PM [facility]) Only the most recent of 2 results within the time period is included. Vitamin B12 573 200 - 1,100 pg/mL [facility] [place] Specimen Blood Resulting Agency Comment Performing Organization Information: Site ID: RGA Name: [facility] Address: [address] [place] [phone] Director: Julieta Zavaleta Performing Organization Address [facility] Phone Number Every1[employer] [address] [address] * Comprehensive metabolic panel (10/19/2018 12:37 PM [facility]) Only the most recent of 7 results within the time period is included. Glucose 92 65 - 99 mg/dL [facility] Comment: [place] Fasting reference interval BUN, whole blood 9 7 - 25 mg/dL [facility] Creatinine 0.59 0.50 - 1.10 mg/dL [facility] [place] EGFR Non-Afr. Swedish 120 > OR=60 mL/min/1.73m2 [facility] [place] EGFR 139 > OR=60 mL/min/1.73m2 [facility] [facility] BUN/creatinine ratio NOT APPLICABLE 6 - 22 (calc) [facility] Sodium 140 135 - 146 mmol/L Supportie [facility] Potassium 4.4 3.5 - 5.3 mmol/L [facility] Chloride 108 98 - 110 mmol/L [facility] CO2 27 20 - 32 mmol/L [facility] [place] Calcium 9.4 8.6 - 10.2 mg/dL [facility] [place] Protein 6.8 6.1 - 8.1 g/dL [facility] [place] Albumin, S 4.4 3.6 - 5.1 g/dL [facility] Globulin, total 2.4 1.9 - 3.7 g/dL (calc) [facility] Albumin/globulin ratio 1.8 1.0 - 2.5 (calc) Supportie [facility] Total bilirubin 0.2 0.2 - 1.2 mg/dL [facility] Alkaline phosphatase 112 33 - 115 U/L [facility] AST 42 (H) 10 - 30 U/L Supportie [facility] ALT 41 (H) 6 - 29 U/L [employer] [place] Specimen Blood Resulting Agency Comment Performing Organization Information: Site ID: [id number] Name: [facility] Lab Address: [address] [place] [id number] Director: Julieta Zavaleta Performing Organization Address City/State/Zipcode Phone Number [facility] Supportie [place] [phone] * XR Ankle 3+ Vw Right (10/11/2018 9:19 AM [facility]) Narrative Performed At PROCEDURE:XR ANKLE 3VW RIGHT HM [facility] CLINICAL HISTORY:pain COMPARISON:None. TECHNIQUE: AP, lateral, and oblique views of the Right ankle are submitted. FINDINGS: No fracture, dislocation, periosteal reaction, or bone destruction is demonstrated of the bones about the right ankle. There is mild joint effusion. Soft tissue swelling overlying medial and lateral malleoli. IMPRESSION: 1. Soft tissue swelling overlying medial and lateral malleoli. 2. Negative for fracture or focal bony lesion. 3. Mild joint effusion. [id number] Procedure Note Interface, Radiology Results Incoming - 10/11/2018 9:30 AM [facility] PROCEDURE: XR ANKLE 3 VW RIGHT CLINICAL HISTORY: pain COMPARISON: None. TECHNIQUE: AP, lateral, and oblique views of the Right ankle are submitted. FINDINGS: No fracture, dislocation, periosteal reaction, or bone destruction is demonstrated of the bones about the right ankle. There is mild joint effusion. Soft tissue swelling overlying medial and lateral malleoli. IMPRESSION: 1. Soft tissue swelling overlying medial and lateral malleoli. 2. Negative for fracture or focal bony lesion. 3. Mild joint effusion. [id number] Performing Organization Address [facility] Phone Number [facility] [address] [place] [address] * XR Hip 2-3 View Left (10/11/2018 9:16 AM [facility]) Narrative Performed At EXAMINATION:XR HIP 2-3 VIEWS LEFT [facility] CLINICAL HISTORY:pain COMPARISON:None. TECHNIQUE: 3 views were performed consisting of an AP pelvis, AP and frog's view of the LEFT hip. FINDINGS: No gross acute fracturing, dislocation, bone destruction, or periosteal reaction is noted. No gross soft tissue swelling is noted. IMPRESSION: There is no acute fracture or subluxation to left hip. [id number] Procedure Note Interface, Radiology Results Incoming - 10/11/2018 9:31 AM [facility] EXAMINATION: XR HIP 2-3 VIEWS LEFT CLINICAL HISTORY: pain COMPARISON: None. TECHNIQUE: 3 views were performed consisting of an AP pelvis, AP and frog's view of the LEFT hip. FINDINGS: No gross acute fracturing, dislocation, bone destruction, or periosteal reaction is noted. No gross soft tissue swelling is noted. IMPRESSION: There is no acute fracture or subluxation to left hip. [id number] Performing Organization Address [facility] Phone Number [facility] [address] [place] [address] * CT Abdomen Pelvis W Contrast (10/11/2018 8:58 AM [facility]) Narrative Performed At EXAMINATION:CT ABDOMEN PELVIS W CONTRAST [facility] CLINICAL HISTORY:Abd painunspecified TECHNIQUE: Multiple axial images of the abdomen and pelvis were obtained following intravenous administration of iodinated contrast. Sagittal and coronal computerized reformatted images were also obtained. CT imaging was performed with iterative reconstruction techniques and/or automated exposure control to reduce radiation dose. COMPARISON:09/01/2017 FINDINGS: Abdominal solid organs are unremarkable. Gallbladder is absent. No biliary dilatation. No bowel obstruction or inflammation. Appendix is normal. Small bowel anastomosis is seen in the right lower quadrant. No free fluid or free air. Status post hysterectomy. Postsurgical change in the lumbar spine. There is a small elongated loculation of fluid and fat in the anterior abdominal wall left of the incisional scar overlying the left rectus sheath measuring 2 x 1.5 cm in transverse dimensions. IMPRESSION: No definite acute findings. Small elongated collection overlying the left rectus sheath there is likely old postsurgical finding. [facility]-[id number] Procedure Note Interface, Radiology Results Incoming - 10/11/2018 9:15 AM [facility] EXAMINATION: CT ABDOMEN PELVIS W CONTRAST CLINICAL HISTORY: Abd pain unspecified TECHNIQUE: Multiple axial images of the abdomen and pelvis were obtained following intravenous administration of iodinated contrast. Sagittal and coronal computerized reformatted images were also obtained. CT imaging was performed with iterative reconstruction techniques and/or automated exposure control to reduce radiation dose. COMPARISON: 09/01/2017 FINDINGS: Abdominal solid organs are unremarkable. Gallbladder is absent. No biliary dilatation. No bowel obstruction or inflammation. Appendix is normal. Small bowel anastomosis is seen in the right lower quadrant. No free fluid or free air. Status post hysterectomy. Postsurgical change in the lumbar spine. There is a small elongated loculation of fluid and fat in the anterior abdominal wall left of the incisional scar overlying the left rectus sheath measuring 2 x 1.5 cm in transverse dimensions. IMPRESSION: No definite acute findings. Small elongated collection overlying the left rectus sheath there is likely old postsurgical finding. [facility]-[id number] Performing Organization Address [facility]/Zipcode Phone Number [facility] [address] [place] [address] * Gram stain (10/11/2018 8:10 AM [facility]) Gram stain result Rare WBC's [facility]AIN JOHNSON Few Gram positive rods HOSPITAL Comment: Specimen Information Specimen Source: Urine Specimen Site: Clean catch Specimen Urine Performing Organization Address [facility]/Zipcode Phone Number [facility] DEPARTMENT OF [address] [place] [address] PATHOLOGY AND GENOMIC MEDICINE [facility]IA [facility] [address] [place] [address] HOSPITAL * Urine culture (10/11/2018 8:10 AM [facility]) Only the most recent of 3 results within the time period is included. Urine culture isolate Mixed lexy 10-4 col/cc [facility] Comment: HOSPITAL Specimen Information Specimen Source: Urine Specimen Site: Clean catch Specimen Urine Performing Organization Address City/State/Zipcode Phone Number [facility] DEPARTMENT OF [address] [place] [address] PATHOLOGY AND GENOMIC MEDICINE [id number] [place] [address] * Urinalysis screen and microscopy, with reflex to culture (10/11/2018 7:29 AM [facility]) Only the most recent of 3 results within the time period is included. Specimen site Clean catch [facility] Color, UA Colorless [facility] Appearance, UA Clear [facility] Specific gravity, UA 1.006 1.001 - 1.035 [facility] pH, UA 7.0 5.0 - 8.5 [facility] Protein, UA Negative Negative [facility] Glucose, UA Negative Negative [facility] Ketones, UA Negative Negative [facility] Bilirubin, UA Negative Negative [facility] Blood, UA Negative Negative [facility] Nitrite, UA Negative Negative [facility] Urobilinogen, UA Negative <2.0 [facility] Leukocyte esterase, UA Trace (A) Negative [facility] Epithelial cells, UA Few /HPF [facility] WBC, UA 11 (H) 0 - 5 /HPF [facility] RBC, UA <1 0 - 5 /HPF [facility] Bacteria, UA None seen None seen [facility] Yeast, UA None seen [facility] Yeast with pseudohyphae, None seen [facility] Specimen Urine Performing Organization Address City/[facility]/Zipcode Phone Number [facility] DEPARTMENT OF [address] [place] [address] PATHOLOGY AND GENOMIC MEDICINE [facility] [address] [place] * hCG qualitative, urine screen (10/11/2018 7:29 AM [facility]) hCG qualitative, urine Negative Negative [facility] Comment: [facility] The manufacturers stated sensitivity of HcG test for serum is >/=10 mIU/ml and urine is >/=20mIU/ml. Specimen Urine Performing Organization Address City/[facility]/Zipcode Phone Number [facility] DEPARTMENT OF [address] [facility] [place] [address] PATHOLOGY AND GENOMIC MEDICINE [place] [id number] [facility] [address] * Urine drugs of abuse screen (10/11/2018 7:29 AM [facility]) Amphetamine screen, urine Negative [facility] Barbiturate screen, urine Positive (A) [facility] Benzodiazepine screen, Negative [facility] urine [facility] Cannabinoid screen, urine Negative [facility] Cocaine screen, urine Negative [facility] Methadone metabolite Negative [facility] (EDDP), urine [facility] Opiates screen, urine Negative [facility] Phencyclidine screen, Negative [facility] urine [facility] Specimen Urine Performing Organization Address City/[facility] Centercode Phone Number [facility] [address] [facility] [place] [id number] PATHOLOGY AND GENOMIC MEDICINE [place] [id number] [facility] [address] * Us duplex venous lower extremity (10/11/2018 6:01 AM [facility]) Narrative Performed At EXAMINATION:US DUPLEX VENOUS LOWER EXTREMITY LEFT [facility] CLINICAL HISTORY:left leg pain COMPARISON: 33 years 1985None. TECHNIQUE:Grayscale, color Doppler and spectral waveform analysis of the left lower extremity deep venous system. FINDINGS: The left common femoral, superficial femoral and popliteal veins are compressible. They demonstrate venous waveforms and response to augmentation. Flow is identified within the greater saphenous, deep femoral and visualized calf vessels.Flow was also documented in the right common femoral vein. IMPRESSION: No sonographic evidence of deep venous thrombosis of the left lower extremity. [facility]-[id number] Procedure Note Interface, Radiology Results Incoming - 10/11/2018 6:11 AM [facility] EXAMINATION: US DUPLEX VENOUS LOWER EXTREMITY LEFT CLINICAL HISTORY: left leg pain COMPARISON: 33 years 1985 None. TECHNIQUE: Grayscale, color Doppler and spectral waveform analysis of the left lower extremity deep venous system. FINDINGS: The left common femoral, superficial femoral and popliteal veins are compressible. They demonstrate venous waveforms and response to augmentation. Flow is identified within the greater saphenous, deep femoral and visualized calf vessels. Flow was also documented in the right common femoral vein. IMPRESSION: No sonographic evidence of deep venous thrombosis of the left lower extremity. [facility]-[id number] Performing Organization Address [facility] Cancer Centercode Phone Number [facility] [address] [place] [address] * Estimated GFR (10/11/2018 6:00 AM [facility]) Only the most recent of 2 results within the time period is included. Estimated GFR >=90 mL/min/1.73 m2 [facility]NS[facility] Comment: [facility] CatergoryUnitsInte rpretation G1 >=90 Normal or high G2 60-89Mildly decreased [id number] Mildly to moderately decreased [id number] Moderately to severely decreased G4 15-29Severely decreased G5 <15Kidney failure The eGFR was calculated using the Chronic Kidney Disease Epidemiology Collaboration (CKD-EPI) equation. Interpretation is based on recommendations of the National Kidney Foundation-Kidney Disease Outcomes Quality Initiative (NKF-KDOQI) published in 2014. Specimen Plasma specimen Performing Organization Address [facility] Cancer Centercode Phone Number [facility] [address] [place] [address] PATHOLOGY AND GENOMIC MEDICINE [place] [address] [address] * Partial thromboplastin time, activated (10/11/2018 6:00 AM [facility]) PTT 33.7 23.0 - 36.0 sec ZAIN JOHNSON Comment: [facility] PTT therapeutic range for unfractionated heparin is 61.0-112.0 seconds which corresponds to Anti-Xa 0.3-0.7 U/ml. Note:Change in Panic Value The PTT Panic Value is changing from 110 sec. to 100 sec. due to new instrumentation and reagents. Correlation studies have been performed to validate this result. Specimen Blood Performing Organization Address [facility] Centercoin Phone Number [facility] [address] [place] [address] PATHOLOGY AND [facility] MEDICINE [address] * Prothrombin time with INR (10/11/2018 6:00 AM [facility]) Only the most recent of 2 results within the time period is included. Prothrombin time 13.2 11.5 - 14.5 sec [facility] INR 1.03 [facility] Comment: [facility] For patients on anticoagulant therapy, reference ranges below: Indication: INR Value Treatment of Venous Thrombosis, 2.0-3.0 pulmonary emboli, or prophylaxis of a venous thrombosis, or systemic emboli. High dose, high risk patients 3.0-4.5 with mechanical valves. NOTE:INR values over 3.0 are sometimes associated with gastrointestinal hemorrhage, especially values over 4.0. Specimen Blood Performing Organization Address [facility] [place] [address] PATHOLOGY AND [facility] MEDICINE [address] * Lipase level (10/11/2018 6:00 AM [facility]) Only the most recent of 3 results within the time period is included. Lipase 38 13 - 60 U/L [facility] Specimen Plasma specimen Performing Organization Address [facility] [place] [address] PATHOLOGY AND [facility] MEDICINE [address] * Alcohol level, blood (10/11/2018 6:00 AM [facility]) Alcohol None Detected mg/dL [facility] Comment: [facility] Normal None Detected Legal Intoxication in [place] 80 mg/dL (0.08%) Toxic Concentration 200 mg/dL (0.2%) Potentially Fatal 350-500 mg/dL (0.35%-0.5%) Alcohol percent None Detected % [facility] Specimen Blood Performing Organization Address [facility] Centercode Phone Number [address] [place] [address] PATHOLOGY AND GENOMIC MEDICINE [facility] [address] [place] [address] [facility] * ECG 12 lead (08/04/2018 6:53 PM [facility]) Only the most recent of 5 results within the time period is included. Ventricular rate 66 [facility] Atrial rate 66 [facility] FL interval 144 [facility] QRSD interval 84 [facility] QT interval 410 [facility] QTC interval 429 [facility] P axis 1 53 [facility] QRS axis 1 3 [facility] T wave axis 12 [facility] EKG impression Normal sinus rhythm-Normal [facility] MUSE ECG-No previous ECGs available- Narrative Performed At Performing Organization Address [facility] Phone Number [facility] MUSE [address] [place] [address] * XR Chest 2 Vw (08/04/2018 6:12 PM [facility]) Only the most recent of 2 results within the time period is included. Narrative Performed At EXAMINATION:XR CHEST 2 VW [facility] CLINICAL HISTORY:Z01.810 Encounter for preprocedural cardiovascular examination, preop XR CHEST 2 VWimages are submitted COMPARISON:February 2018 FINDINGS: The cardiac silhouette is normal in size. The pulmonary vasculature is within normal limits. The lung zones have no focal area of consolidation. There is no pleural effusion or pneumothorax. IMPRESSION: 1. There is no acute cardiopulmonary disease. [id number] Procedure Note Interface, Radiology Results Incoming - 08/04/2018 6:18 PM [facility] EXAMINATION: XR CHEST 2 VW CLINICAL HISTORY: Z01.810 Encounter for preprocedural cardiovascular examination, preop XR CHEST 2 VW images are submitted COMPARISON: February 2018 FINDINGS: The cardiac silhouette is normal in size. The pulmonary vasculature is within normal limits. The lung zones have no focal area of consolidation. There is no pleural effusion or pneumothorax. IMPRESSION: 1. There is no acute cardiopulmonary disease. [id number] Performing Organization Address [facility] Centercoin Phone Number [facility] [address] [place] [address] * Surgical pathology request (08/02/2018 4:30 PM [facility]) [facility] DEPARTMENT OF PATHOLOGY AND GENOMIC MEDICINE Surgical pathology report See link below for PDF Lab [facility] DEPARTMENT OF Report PATHOLOGY AND GENOMIC MEDICINE Result status This is Final Report for [facility] DEPARTMENT OF [id number] PATHOLOGY AND GENOMIC MEDICINE Performing Organization Address City/State/Zipcode Phone Number [facility] DEPARTMENT OF [address] [place] [address] PATHOLOGY AND GENOMIC MEDICINE * IR Transjugular Liver Biopsy (08/02/2018 12:31 PM [facility]) Narrative Performed At PROCEDURE: Transjugular liver biopsy with pressure measurements [facility] Procedural Personnel Attending physician(s): Arsalan Silva MD Fellow physician(s): None Resident physician(s): None Advanced practice provider(s): None Pre-procedure diagnosis: Abnormal liver function test Post-procedure diagnosis: Abnormal liver function tests Indication: Elevated liver enzymes Additional clinical history: None Complications: No immediate complications. IMPRESSION: Transjugular liver biopsy with 5 core biopsy samples obtained. The corrected sinusoidal pressure (wedged hepatic vein pressure minus free hepatic vein pressure) is 5 mmHg. Plan: Specimen(s) sent for evaluation. PROCEDURE SUMMARY: - Venous access with ultrasound guidance - Hepatic venography - Pressure measurements - Transjugular liver biopsy with fluoroscopic guidance - Additional procedure(s): None PROCEDURE DETAILS: Pre-procedure Consent: Informed consent for the procedure including risks, benefits and alternatives was obtained and time-out was performed prior to the procedure. Preparation: The site was prepared and draped using maximal sterile barrier technique including cutaneous antisepsis. Anesthesia/sedation Level of anesthesia/sedation: Moderate sedation (conscious sedation) Anesthesia/sedation administered by: Independent trained observer under attending supervision with continuous monitoring of the patient's level of consciousness and physiologic status Total intra-service sedation time (minutes): 21 Access Local anesthesia was administered. The vessel was sonographically evaluated and determined to be patent. Real time ultrasound was used to visualize needle entry into the vessel and a permanent image was stored. A 10F sheath was placed. Vein accessed: Right internal jugular vein Access technique: Micropuncture set with 21 gauge needle Venography Vein catheterized: Right hepatic vein Indication for venography: Document catheter position Findings: Patent, normal caliber vein. Pressure measurements Pressure measurements were obtained via end-hole catheter. Mean right atrial pressure (mmHg): 8 Mean free hepatic vein pressure (mmHg): 11 Mean wedged hepatic vein pressure (mmHg): 16 Biopsy Samples were obtained of the liver parenchyma from the hepatic vein using the transjugular liver biopsy set. Core needle biopsy device: Argon TLAB Core needle size (gauge): 18 Number of core specimens: 5 Closure The sheath was removed and hemostasis was achieved with manual compression. A sterile bandage was applied. Radiation Dose Reference air kerma (mGy): 35 Additional Details Additional description of procedure: None Equipment details: None Specimens removed: Biopsy samples as detailed above Estimated blood loss (mL): Less than 10 Standardized report: [email or web address] Attestation Signer name: Arsalan Silva MD I attest that I was present for the entire procedure. I reviewed the stored images and agree with the report as written. Procedure Note Hm Interface, Radiology Results Incoming - 08/02/2018 1:03 PM [facility] PROCEDURE: Transjugular liver biopsy with pressure measurements Procedural Personnel Attending physician(s): Arsalan Silva MD Fellow physician(s): None Resident physician(s): None Advanced practice provider(s): None Pre-procedure diagnosis: Abnormal liver function test Post-procedure diagnosis: Abnormal liver function tests Indication: Elevated liver enzymes Additional clinical history: None Complications: No immediate complications. IMPRESSION: Transjugular liver biopsy with 5 core biopsy samples obtained. The corrected sinusoidal pressure (wedged hepatic vein pressure minus free hepatic vein pressure) is 5 mmHg. Plan: Specimen(s) sent for evaluation. PROCEDURE SUMMARY: - Venous access with ultrasound guidance - Hepatic venography - Pressure measurements - Transjugular liver biopsy with fluoroscopic guidance - Additional procedure(s): None PROCEDURE DETAILS: Pre-procedure Consent: Informed consent for the procedure including risks, benefits and alternatives was obtained and time-out was performed prior to the procedure. Preparation: The site was prepared and draped using maximal sterile barrier technique including cutaneous antisepsis. Anesthesia/sedation Level of anesthesia/sedation: Moderate sedation (conscious sedation) Anesthesia/sedation administered by: Independent trained observer under attending supervision with continuous monitoring of the patient's level of consciousness and physiologic status Total intra-service sedation time (minutes): 21 Access Local anesthesia was administered. The vessel was sonographically evaluated and determined to be patent. Real time ultrasound was used to visualize needle entry into the vessel and a permanent image was stored. A 10F sheath was placed. Vein accessed: Right internal jugular vein Access technique: Micropuncture set with 21 gauge needle Venography Vein catheterized: Right hepatic vein Indication for venography: Document catheter position Findings: Patent, normal caliber vein. Pressure measurements Pressure measurements were obtained via end-hole catheter. Mean right atrial pressure (mmHg): 8 Mean free hepatic vein pressure (mmHg): 11 Mean wedged hepatic vein pressure (mmHg): 16 Biopsy Samples were obtained of the liver parenchyma from the hepatic vein using the transjugular liver biopsy set. Core needle biopsy device: Argon TLAB Core needle size (gauge): 18 Number of core specimens: 5 Closure The sheath was removed and hemostasis was achieved with manual compression. A sterile bandage was applied. Radiation Dose Reference air kerma (mGy): 35 Additional Details Additional description of procedure: None Equipment details: None Specimens removed: Biopsy samples as detailed above Estimated blood loss (mL): Less than 10 Standardized report: SIR_TransjugularLiverBiopsyPressures_v2 Attestation Signer name: Arsalna Silva MD I attest that I was present for the entire procedure. I reviewed the stored images and agree with the report as written. Performing Organization Address City/State/Zipcode Phone Number GRACIE [address] [place] [address] * KESHIA SCREEN W IFA W REFLEX TO TITER (07/04/2018 12:00 AM [facility] [facility]) KESHIA screen NEGATIVE NEGATIVE [facility] Comment: DIAGNOSTICS-LUIZA KESHIA IFA is a first line screen II for detecting the presence of up to approximately 150 autoantibodies in various autoimmune diseases. A negative KESHIA IFA result suggests KESHIA-associated autoimmune diseases are not present at this time. Visit Physician FAQs for interpretation of all antibodies in the [place], prevalence, and association with diseases at http://education.[employer]com/ faq/LCG459 Specimen Blood Resulting Agency Comment Performing Organization Information: Site ID: [id number] Name: [facility] Address: [address] [place] [address] Director: Dr. Ninoska Person Performing Organization Address City/[facility]/Zipcode Phone Number ROEL Supportie [address] [address] II * MITOCHONDRIAL ANTIBODY W/REFL TITER (07/04/2018 12:00 AM [facility] [facility]) Mitochondrial Ab NEGATIVE NEGATIVE [facility] Comment: [employer]/ChemDA[employer] This test was developed and [facility] its analytical performance characteristics have been determined by [facility]. It has not been cleared or approved by FDA. This assay has been validated pursuant to the CLIA regulations and is used for clinical purposes. Mitochondrial Ab titer TNP titer [facility] Comment: DIAGNOSTICS/ChemDAQ Test Not Performed. Screening [facility] test Negative or Not Detected. Titer not performed. Resulting Agency Comment Performing Organization Information: Site ID: [id number] Name: [facility], Address: [address] [place] [id number] Director: Elizabeth Brambila MD,PhD,CARLINE Performing Organization Address City/[facility]/Zipcode Phone Number [employer] [phone] [place] [address] [facility] [id number] * F-actin (smooth muscle) antibody, IgG (07/04/2018 12:00 AM [place] [facility] [place]) F-actin (smooth muscle) <20 U [facility] Ab, IgG Comment: DIAGNOSTICS/ChemDAQ [facility] Reference Range: <20 NEGATIVE > OR=20 POSITIVE Antibodies recognizing actin are the main component of smooth muscle antibodies associated with autoimmune liver disease. Actin antibodies are found in approximately 75% of patients with autoimmune hepatitis (AIH) type 1, approximately 65% of patients with autoimmune cholangitis, approximately 30% of patients with primary biliary cirrhosis, and approximately 2% of healthy people. High values are closely correlated with AIH type 1. Specimen Blood Resulting Agency Comment Performing Organization Information: Site ID: [id number] Name: [email or web address] [facility], Address: [address] [place] [id number] Director: Elizabeth Brambila MD,PhD,CARLINE Performing Organization Address City/[facility] Cent[facility] Phone Number ROEL HU/KADEEM [phone] [place] [address] [facility] [id number] * Immunoglobulin G, A, M (07/04/2018 12:00 AM [place] [facility] [place]) IgA 108 81 - 463 mg/dL [facility] [place] IgG 1,003 694 - 1,618 mg/dL [facility] [place] IgM 47 (L) 48 - 271 mg/dL [facility] [place] Specimen Blood Resulting Agency Comment Performing Organization Information: Site ID: [id number] Name: [facility] Address: [address] [place] [phone] Director: Julieta Zavaleta Performing Organization Address [facility] Phone [place] [address] * GGT (07/04/2018 12:00 AM [place] [facility]) GGT 102 (H) 3 - 50 U/L [facility] [place] Specimen Blood Resulting Agency Comment Performing Organization Information: Site ID: RGA Name: [facility] Address: [address] [place] [phone] Director: Julieta Zavaleta Performing Organization Address [facility] [place] [address] * MRI Abdomen Wo Contrast (06/06/2018 9:25 AM CDT) Narrative Performed At [facility] EXAMINATION:MRI ABDOMEN WO CONTRAST CLINICAL HISTORY:R93.89 Abnormal findings on diagnostic imaging of other specified body structures, r94 TECHNIQUE: Multiplanar multisequence MR images of the abdomen were obtained without contrast. The lack of intravenous contrast reduces the sensitivity of detecting solid organ disease. COMPARISON:11/15/2017 IMPRESSION: Gallbladder, liver,, pancreas, spleen, adrenal glands, kidneys, are within normal limits. The patient is status post hysterectomy. The abdominal organs are slightly limited due to lack of IV gadolinium on this study. The regional marrow is within normal limits. There is no evidence of common ductal dilatation or pancreatic ductal dilatation. [facility]-[id number] Procedure Note Hm Interface, Radiology Results Incoming - 06/06/2018 10:07 AM CDT EXAMINATION: MRI ABDOMEN WO CONTRAST CLINICAL HISTORY: R93.89 Abnormal findings on diagnostic imaging of other specified body structures, r94 TECHNIQUE: Multiplanar multisequence MR images of the abdomen were obtained without contrast. The lack of intravenous contrast reduces the sensitivity of detecting solid organ disease. COMPARISON: 11/15/2017 IMPRESSION: Gallbladder, liver,, pancreas, spleen, adrenal glands, kidneys, are within normal limits. The patient is status post hysterectomy. The abdominal organs are slightly limited due to lack of IV gadolinium on this study. The regional marrow is within normal limits. There is no evidence of common ductal dilatation or pancreatic ductal dilatation. [facility]-[id number] Performing Organization Address [facility] [place] [address] * T3, free (05/10/2018 2:29 PM CDT) Only the most recent of 2 results within the time period is included. T3, free 2.78 2.18 - 3.98 pmol/L [facility] DEPARTMENT OF PATHOLOGY AND GENOMIC MEDICINE Specimen Plasma specimen Performing Organization Address [facility] [place] [address] PATHOLOGY AND [employer] MEDICINE * Transferrin level (05/10/2018 2:29 PM CDT) Transferrin 246 200 - 360 mg/dL [facility] DEPARTMENT OF PATHOLOGY AND GENOMIC MEDICINE Specimen Plasma specimen Performing Organization Address [facility] Cancer Centercoin Phone Number [facility] [place] [address] PATHOLOGY AND [facility] MEDICINE * Thyroid stimulating hormone (05/10/2018 2:29 PM CDT) Only the most recent of 2 results within the time period is included. TSH 0.42 0.27 - 4.20 uIU/mL [facility] DEPARTMENT OF PATHOLOGY AND GENOMIC MEDICINE Specimen Plasma specimen Performing Organization Address [facility] [place] [address] PATHOLOGY AND [employer] MEDICINE * T4, free (05/10/2018 2:29 PM CDT) Only the most recent of 2 results within the time period is included. T4, free 1.16 0.90 - 1.70 ng/dL [facility] DEPARTMENT OF PATHOLOGY AND GENOMIC MEDICINE Specimen Plasma specimen Performing Organization Address City/State/Zipcode Phone Number [facility] [address] [place] [address] PATHOLOGY AND GENOMIC MEDICINE * Basic metabolic panel (05/10/2018 2:29 PM CDT) Only the most recent of 2 results within the time period is included. Sodium 145 135 - 150 mEq/L [facility] DEPARTMENT OF PATHOLOGY AND GENOMIC MEDICINE Potassium 3.0 (L) 3.5 - 5.0 mEq/L [facility] DEPARTMENT OF PATHOLOGY AND GENOMIC MEDICINE Chloride 106 98 - 112 mEq/L [facility] DEPARTMENT OF PATHOLOGY AND GENOMIC MEDICINE CO2 25 24 - 31 mmol/L [facility] DEPARTMENT OF PATHOLOGY AND GENOMIC MEDICINE Anion gap 14@ANIO 7 - 15 mEq/L [facility] DEPARTMENT OF PATHOLOGY AND GENOMIC MEDICINE BUN 6 (L) 7 - 18 mg/dL [facility] DEPARTMENT OF PATHOLOGY AND GENOMIC MEDICINE Creatinine 0.70 0.50 - 0.90 mg/dL [facility] DEPARTMENT OF PATHOLOGY AND GENOMIC MEDICINE Glucose 95 65 - 100 mg/dL [facility] DEPARTMENT OF PATHOLOGY AND GENOMIC MEDICINE Calcium 9.3 8.3 - 10.2 mg/dL [facility] DEPARTMENT OF PATHOLOGY AND GENOMIC MEDICINE Specimen Plasma specimen Performing Organization Address City/State/Zipcode Phone Number [facility] [address] [place] [address] PATHOLOGY AND GENOMIC MEDICINE * Microalbumin, urine, random (03/16/2018 12:16 PM CDT) Total volume, urine No volumeComment: Corrected mL [facility] DEPARTMENT OF result; previously reported as PATHOLOGY AND 307 on 03/16/2018 at 14:44 by [employer] MEDICINE PXP Urine creatinine 177 mg/dL [facility] DEPARTMENT OF concentration PATHOLOGY AND GENOMIC MEDICINE Urine microalbumin <1.2 mg/dL [facility] DEPARTMENT OF concentration PATHOLOGY AND GENOMIC MEDICINE Urine SEE COMMENTComment: Unable to 0 - 30 mg/g [facility] DEPARTMENT OF microalbumin/creatinine calculate due to low analyte PATHOLOGY AND ratio concentration. GENOMIC MEDICINE Specimen Urine Performing Organization Address City/State/Zipcode Phone Number [facility] [address] [place] [address] PATHOLOGY AND [facility] * Estimated GFR (03/16/2018 12:16 PM CDT) Only the most recent of 5 results within the time period is included. GFR Non Af Amer >90 mL/min/1.73 m2 [facility] DEPARTMENT OF PATHOLOGY AND GENOMIC MEDICINE GFR Af Amer >90 mL/min/1.73 m2 [facility] DEPARTMENT OF Comment: PATHOLOGY AND Chronic kidney disease: <60 GENOMIC MEDICINE mL/min/1.73m2 Kidney failure: <15 mL/min/1.73m2 The estimated GFR is calculated from the IDMS-traceable Modification of Diet in Renal Disease Equation. The accuracy of the calculation is poor when the creatinine is normal. Calculated values >90 mL/min/1.73m2 are not reported. This equation has not been validated in children (<18 years), women, the elderly (>70 years), or ethnic groups other than Caucasians and Americans. Specimen Plasma specimen Performing Organization Address City/[facility]/[place] [address] PATHOLOGY [facility] * Hepatitis C antibody (03/16/2018 12:16 PM CDT) Hepatitis C Ab Non-reactive Non-reactive [facility] DEPARTMENT PATHOLOGY AND [facility] Specimen Blood Performing Organization Address City/[facility] Centercode Phone Number [address] * Methylmalonic acid, serum (03/16/2018 12:16 PM CDT) Methylmalonic acid 0.13 0.00 - 0.40 umol/L [facility] Comment: INTERPRETIVE INFORMATION: MMA Serum/Plasma, Vitamin B12 Status Test developed and characteristics determined by [facility]. See Compliance Statement B: [employer]CS Performed by [facility], [address] [place], [place] [id number] [email or web address], Haresh Collins MD - Lab. Director Specimen Serum Performing Organization Address City/[facility]/Zipcode Phone Number [facility] [address] [place] [address] * HIV 1, 2 antibody (03/16/2018 12:16 PM CDT) HIV 1, 2 antibody Non-Reactive Non-reactive [facility] DEPARTMENT OF Comment: PATHOLOGY AND Starting from November 12 2015, [employer] MEDICINE 4th generation HIV screening and confirmation assays are in use at [facility], consistent with the CDC-recommended algorithm. The screening test detects antibodies to HIV-1, HIV-2 and the p24 antigen. Positive screening results will be automatically reflexed to a HIV-1/HIV-2 differentiation assay. Indeterminant HIV-1 results will be further automatically reflexed to a nucleic acid test for detection of acute infection. Western blot will no longer be performed as a confirmation test. For a quick reference guide on the testing algorithm, please refer to: http://stacks.cdc.gov/view/cdc /62983. Specimen Blood Performing Organization Address City/[facility]/[place] [address] PATHOLOGY AND GENOMIC MEDICINE * Hepatitis B surface antibody (03/16/2018 12:16 PM CDT) Hepatitis B surface Ab Reactive (A) Non-reactive [facility] DEPARTMENT PATHOLOGY AND [employer] [facility] Specimen Blood Performing Organization Address City/[facility]/[place] [address] PATHOLOGY AND [employer] [facility] * Urinalysis, automated with microscopy (03/16/2018 12:16 PM CDT) Color, UA Yellow [facility] DEPARTMENT OF PATHOLOGY AND GENOMIC MEDICINE Appearance, UA Cloudy [facility] DEPARTMENT OF PATHOLOGY AND GENOMIC MEDICINE Specific gravity, UA 1.020 1.001 - 1.035 [facility] DEPARTMENT OF PATHOLOGY AND GENOMIC MEDICINE pH, UA 5.0 5.0 - 8.5 [facility] DEPARTMENT OF PATHOLOGY AND GENOMIC MEDICINE Protein, UA Negative Negative [facility] DEPARTMENT OF PATHOLOGY AND GENOMIC MEDICINE Glucose, UA Negative Negative [facility] DEPARTMENT OF PATHOLOGY AND GENOMIC MEDICINE Ketones, UA Negative Negative [facility] DEPARTMENT OF PATHOLOGY AND GENOMIC MEDICINE Bilirubin, UA Negative Negative [facility] DEPARTMENT OF PATHOLOGY AND GENOMIC MEDICINE Blood, UA Negative Negative [facility] DEPARTMENT OF PATHOLOGY AND GENOMIC MEDICINE Nitrite, UA Negative Negative [facility] DEPARTMENT OF PATHOLOGY AND GENOMIC MEDICINE Urobilinogen, UA 2.0 (A) <2.0 [facility] DEPARTMENT OF PATHOLOGY AND GENOMIC MEDICINE Leukocyte esterase, UA Negative Negative [facility] DEPARTMENT OF PATHOLOGY AND GENOMIC MEDICINE Epithelial cells, UA Many /HPF [facility] DEPARTMENT OF PATHOLOGY AND GENOMIC MEDICINE WBC, UA 2 0 - 5 /HPF [facility] DEPARTMENT OF PATHOLOGY AND GENOMIC MEDICINE RBC, UA 1 0 - 5 /HPF [facility] DEPARTMENT OF PATHOLOGY AND GENOMIC MEDICINE Bacteria, UA Trace None seen [facility] DEPARTMENT OF PATHOLOGY AND GENOMIC MEDICINE Yeast, UA None seen [facility] DEPARTMENT OF PATHOLOGY AND GENOMIC MEDICINE Yeast with pseudohyphae, None seen [facility] DEPARTMENT OF PATHOLOGY AND GENOMIC MEDICINE Specimen Urine Performing Organization Address City/[facility]/Zipcode Phone Number [facility] [address] [place] [address] PATHOLOGY AND GENOMIC MEDICINE * Valproic acid level (03/16/2018 12:16 PM CDT) Valproic acid <3.1 (L) 50.0 - 100.0 ug/mL [facility] DEPARTMENT OF Comment: PATHOLOGY AND Therapeutic Range: GENOMIC MEDICINE 50 - 100 ug/mL Specimen Blood Performing Organization Address City/State/Zipcode Phone Number [place] [phone] [place] [address] PATHOLOGY AND GENOMIC MEDICINE * Lipid panel (03/16/2018 12:16 PM CDT) Only the most recent of 2 results within the time period is included. Cholesterol 213 (H) 0 - 199 mg/dL [facility] DEPARTMENT OF PATHOLOGY AND GENOMIC MEDICINE Triglycerides 101 0 - 149 mg/dL [facility] DEPARTMENT OF PATHOLOGY AND GENOMIC MEDICINE HDL cholesterol 66 40 - 9,999 mg/dL [facility] DEPARTMENT OF PATHOLOGY AND GENOMIC MEDICINE LDL cholesterol 142 (H)Comment: Result 0 - 99 mg/dL [facility] DEPARTMENT obtained by direct LDL PATHOLOGY AND measurement GENOMIC MEDICINE Lipid panel See below [facility] DEPARTMENT OF interpretation Comment: PATHOLOGY AND Total Cholesterol GENOMIC MEDICINE (mg/dL) LDL Cholesterol (mg/dL) <200 Desirable <100 Optimal 200-239Borderline -[id number] 29Near or above optimal >=240High 130-159Borderline- high 160-189High >=190Very high HDL Cholesterol (mg/dL) Triglycerides (mg/dL) <40Low <150 Normal >=60 High 150-199Borderline- high 200-499High >=500Very high Risk Catergories that modify LDL goals. Risk Catergories LDL goal (mg/dL) CHD and CHD risk equivalent <100 (10-year risk >20%) Multiple (2+) risk factors <130 (10-year risk=<20%) 0-1 risk factors <160 (<10-year risk) Defining levels of lipids in metabolic syndrome Triglycerides >=150 mg/dL HDL Cholesterol Men <40 mg/dL Women <50 mg/dL Non-HDL cholesterol is a second target for therapy in persons with high triglycerides (>=200 mg/dL) Specimen Plasma specimen Performing Organization Address City/State/Zipcode Phone Number [facility] DEPARTMENT OF [address] [place] [address] PATHOLOGY AND GENOMIC MEDICINE * EEG (routine) (03/07/2018 11:16 PM CDT) Narrative Performed At EEG [facility] Date of Service: 03/07/18 Awake Recording: The occipital dominant rhythm is 10 Hz. 18-22 Hz activity is present in all regions. 2-3 Hz activity was recorded in the left central temporal region. Sleep Recording:No sleep was recorded. Hyperventilation: Not performed. Photic Stimulation: Not performed. Impression The background activity is within the range of normal variation. Focal slow activity was recorded in the left central temporal region consistent with a focal lesion in that region. No epileptiform activity was recorded. ICD-10 Code: R569 * POC glucose (03/07/2018 10:32 PM CDT) Only the most recent of 3 results within the time period is included. POC glucose 75 65 - 99 mg/dL [facility] DEPARTMENT OF Comment: PATHOLOGY AND [facility] Notified RN GENOMIC MEDICINE Meter ID: [id number] Energy Infrastructure Engineer: Willie Grady Performing Organization Address City/[facility]/Zipcode Phone Number [facility] DEPARTMENT OF [address] [place] [address] PATHOLOGY AND GENOMIC MEDICINE * MRA Head Wo Contrast (03/07/2018 8:07 PM CDT) Narrative Performed At EXAMINATION: MRA HEAD WO CONTRAST [facility] CLINICAL HISTORY: STROKE COMPARISON:MRI brain same day TECHNIQUE: [id number] MRA images of the [place] vessels were obtained with multiplanar and 3-D reconstructive algorithms. FINDINGS: The internal carotid arteries and bifurcations into the middle cerebral and anterior cerebral arteries are patent without significant stenosis.Persistent circulation bilaterally. The vertebral arteries and basilar artery as well as the posterior cerebral arteries are patent with no significant stenosis. No aneurysm. IMPRESSION: No focal stenosis or aneurysm of the intracranial circulation. [facility]-[id number] Procedure Note Hm Interface, Radiology Results Incoming - 03/07/2018 8:15 PM CDT EXAMINATION: MRA HEAD WO CONTRAST CLINICAL HISTORY: STROKE COMPARISON: MRI brain same day TECHNIQUE: [id number] MRA images of the [place] vessels were obtained with multiplanar and 3-D reconstructive algorithms. FINDINGS: The internal carotid arteries and bifurcations into the middle cerebral and anterior cerebral arteries are patent without significant stenosis. Persistent circulation bilaterally. The vertebral arteries and basilar artery as well as the posterior cerebral arteries are patent with no significant stenosis. No aneurysm. IMPRESSION: No focal stenosis or aneurysm of the intracranial circulation. [facility]-[id number] Performing Organization Address [facility] Phone Number [employer] [address] [place] [address] * MRA Neck Wo Contrast (03/07/2018 8:07 PM CDT) Narrative Performed At EXAMINATION:[facility]ECK [facility]OKE COMPARISON:MRI brain same day TECHNIQUE: Neck MRA using 2D and 3D qhrr-bz-ducfko technique with multi-planar MIP and 3D reconstruction. Protocol was utilized. FINDINGS: There is normal flow-related signal with no occlusion along bilateral common, internal, and external carotid arteries. There is no significant stenosis according to the NASCET criteria (0%). There is normal flow-related signal with no significant stenosis or occlusion along bilateral vertebral arteries. The right vertebral artery is dominant. IMPRESSION: Unremarkable neck MRA with no significant carotid or vertebral artery stenosis. [facility]-[id number] Procedure Note Interface, Radiology Results 03/07/2018 8:16 PM CDT EXAMINATION: MRA NECK WO CONTRAST CLINICAL HISTORY: STROKE COMPARISON: MRI brain same day TECHNIQUE: Neck MRA using 2D and 3D rwcx-tq-olybtg technique with multi-planar MIP and 3D reconstruction. Protocol was utilized. FINDINGS: There is normal flow-related signal with no occlusion along bilateral common, internal, and external carotid arteries. There is no significant stenosis according to the NASCET criteria (0%). There is normal flow-related signal with no significant stenosis or occlusion along bilateral vertebral arteries. The right vertebral artery is dominant. IMPRESSION: Unremarkable neck MRA with no significant carotid or vertebral artery stenosis. 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 FINDINGS: No evidence of acute intracranial hemorrhage, mass, mass effect, acute infarct or midline shift. Ventricles and sulci are normal in appearance for patient's age. No abnormal intracranial enhancement. No abnormal susceptibility. Basal cisterns are clear. Major intracranial flow voids are maintained. Orbits are normal in appearance. Visualized paranasal sinuses and mastoid air cells are clear. Small Tornwaldt cyst. IMPRESSION: 1. No acute intracranial abnormality. 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 FINDINGS: No evidence of acute intracranial hemorrhage, mass, mass effect, acute infarct or midline shift. Ventricles and sulci are normal in appearance for patient's age. No abnormal intracranial enhancement. No abnormal susceptibility. Basal cisterns are clear. Major intracranial flow voids are maintained. Orbits are normal in appearance. Visualized paranasal sinuses and mastoid air cells are clear. Small Tornwaldt cyst. IMPRESSION: 1. No acute intracranial abnormality. [facility]-[id number] Performing Organization Address City/State/Zipcode Phone Number [facility] [address] [place] [address] * Troponin (03/07/2018 5:45 PM CDT) Only the most recent of 5 results within the time period is included. Troponin <0.30 0.00 - 0.30 ng/mL [facility] DEPARTMENT OF Comment: PATHOLOGY AND 0.30 - 1.49 GENOMIC MEDICINE ng/mlMay indicate increased risk of acute coronary syndrome. >=1.5 ng/ml Consistent with acute myocardial infarction. The diagnostic value of a single normal or non-diagnostic result is questionable.Serial samples at 2-6 hour intervals are required to rule out acute myocardial injury. Specimen Plasma specimen Performing Organization Address [facility] Phone Number [facility] DEPARTMENT OF [address] [place] [address] PATHOLOGY AND GENOMIC MEDICINE * XR Chest 1 Vw Portable (03/07/2018 5:25 PM CDT) Narrative Performed At EXAMINATION:XR CHEST 1 VW PORTABLE [facility] CLINICAL HISTORY:Chest Pain COMPARISON:12/24/2017 IMPRESSION: Lungs are hypoinflated. Mild central pulmonary vascular congestion, accentuated by hypoinflation. No definite infiltrate, consolidation, pleural effusion or pneumothorax. Mildly enlarged cardiac silhouette accentuated by hypoinflation and AP technique. Osseous structures are intact and unremarkable. [id number] Procedure Note Interface, Radiology Results Incoming - 03/07/2018 5:36 PM CDT EXAMINATION: XR CHEST 1 VW PORTABLE CLINICAL HISTORY: Chest Pain COMPARISON: 12/24/2017 IMPRESSION: Lungs are hypoinflated. Mild central pulmonary vascular congestion, accentuated by hypoinflation. No definite infiltrate, consolidation, pleural effusion or pneumothorax. Mildly enlarged cardiac silhouette accentuated by hypoinflation and AP technique. Osseous structures are intact and unremarkable. [facility]-[id number] Performing Organization Address [facility] Phone Number [facility] [address] [place] [address] * CT Head Wo Contrast (03/07/2018 4:06 PM CDT) Narrative Performed At EXAMINATION:[facility] WAS PERFORMED WITH ITERATIVE RECONSTRUCTION TECHNIQUE AND/OR AUTOMATED EXPOSURE CONTROL TO REDUCE RADIATION DOSE. CLINICAL HISTORY:ams COMPARISON:None. FINDINGS: 1. There is no acute intracranial abnormality. Specifically there is no intracranial hemorrhage, mass effect or acute infarction. 2.There is no significant intracranial abnormality. There is a partially empty sella which is not enlarged. 3.The paranasal sinuses and mastoids are clear. IMPRESSION: Negative examination. [id number] Procedure Note Interface, Radiology Results Incoming - 03/07/2018 4:14 PM CDT EXAMINATION: CT HEAD WO CONTRAST CT IMAGING WAS PERFORMED WITH ITERATIVE RECONSTRUCTION TECHNIQUE AND/OR AUTOMATED EXPOSURE CONTROL TO REDUCE RADIATION DOSE. CLINICAL HISTORY: ams COMPARISON: None. FINDINGS: 1. There is no acute intracranial abnormality. Specifically there is no intracranial hemorrhage, mass effect or acute infarction. 2. There is no significant intracranial abnormality. There is a partially empty sella which is not enlarged. 3. The paranasal sinuses and mastoids are clear. IMPRESSION: Negative examination. [id number] Performing Organization Address [facility] Phone Number [facility] [address] [place] [address] * ECG ED Preliminary Interpretation - NOT AN ORDER (12/24/2017 7:36 PM CDT) Narrative Performed At Ninoska Mora MD 12/25/2017 12:38 AM ECG ED Preliminary Interpretation - Not an Order Performed by: NINOSKA MORA Authorized by: NINOSKA MORA ECG reviewed by ED Physician in the absence of a store receiver: yes Interpretation: Interpretation: normal Rate: ECG rate:93 ECG rate assessment: normal Rhythm: Rhythm: sinus rhythm Ectopy: Ectopy: none QRS: QRS axis:Normal Conduction: Conduction: normal ST segments: ST segments:Normal T waves: T waves: normal Comments: Completed on 12/24/2017 at 1649. * hCG qualitative, serum screen (12/24/2017 5:20 PM CDT) hCG qualitative, serum Negative [facility] DEPARTMENT OF Comment: PATHOLOGY AND The manufacturers stated ReadyPulse sensitivity of HcG test for serum is >/=10 mIU/ml and urine is >/=20mIU/ml. Specimen Blood Performing Organization Address [facility] [place] [address] PATHOLOGY AND [employer] MEDICINE * B natriuretic peptide (12/24/2017 5:20 PM CDT) BNP 16 0 - 100 pg/mL [facility] DEPARTMENT OF PATHOLOGY AND [employer] MEDICINE Specimen Blood Performing Organization Address [facility] [place] [address] PATHOLOGY AND [employer] MEDICINE * Echocardiogram complete w contrast and 3D if needed (12/11/2017 1:29 PM CDT) Narrative Performed At [facility] The left ventricle chamber size is normal. Left Ventricular ejection fraction is 55 - 60%. No pericardial effusion No hemodynamically significant valvular abnormalities. Normal RV size and function. Performing Organization Address [facility] Cent[facility]ode Phone Number [facility] [address] [place] [address] * CBC hemogram (12/11/2017 12:17 AM CDT) WBC 6.1 4.2 - 11.0 k/uL [facility] DEPARTMENT OF PATHOLOGY AND GENOMIC MEDICINE RBC 3.79 (L) 4.04 - 5.86 m/uL [facility] OF PATHOLOGY AND GENOMIC MEDICINE HGB 11.1 (L) 11.5 - 15.3 g/dL [facility] DEPART[facility] PATHOLOGY AND GENOMIC MEDICINE HCT 33.9 (L) 34.0 - 45.0 % [facility] DEPARTMENT PATHOLOGY AND GENOMIC MEDICINE MCV 89.4 80.0 - 98.0 fL [facility] DE[facility] PATHOLOGY AND GENOMIC MEDICINE MCH 29.3 27.0 - 34.0 pg [facility] DEPARTMENT PATHOLOGY AND GENOMIC MEDICINE MCHC 32.7 31.5 - 36.5 g/dL [facility] DEPART[facility] PATHOLOGY AND GENOMIC MEDICINE RDW - SD 51.7 (H) 37.0 - 51.0 fL [facility] DEPART[facility] PATHOLOGY AND GENOMIC MEDICINE MPV 10.1 7.4 - 10.4 fL [facility] OF PATHOLOGY AND GENOMIC MEDICINE Platelet count 278 150 - 400 k/uL [facility] DE[facility] PATHOLOGY AND GENOMIC MEDICINE Nucleated RBC 0.00 /100 WBC [facility] OF PATHOLOGY AND GENOMIC MEDICINE Specimen Blood Performing Organization Address City/State/Zipcode Phone Number [facility] [address] [place] [address] PATHOLOGY AND GENOMIC MEDICINE * US Abdomen Complete (12/08/2017 2:49 PM CDT) Narrative Performed At EXAM: US ABDOMEN COMPLETE [facility] CLINICAL DATA:R10.11 Right upper quadrant pain, ABD PAIN COMPARISON: NONE. FINDINGS: PANCREAS:The visualized portions of the pancreas are within normal limits. LIVER:The liver demonstrates normal echogenicity without focal mass or intrahepatic biliary ductal dilatation. MPV:Doppler evaluation of the portal vein demonstrates normal hepatopedal flow. CBD:0.66 cm within normal limits. GALLBLADDER:The gallbladder has been surgically removed. RIGHT KIDNEY:The right kidney is normal in size and echogenicity. There is no evidence of mass, calculi, or hydronephrosis.The right kidney measures 12.41 cm LEFT KIDNEY:The left kidney is normal in size and echogenicity. There is no evidence of mass, calculi, or hydronephrosis. The left kidney .29 cm. SPLEEN:The spleen is homogeneous and not enlarged measuring9.69 cm AORTA:The visualized upper abdominal aorta demonstrates no evidence of ectasia or aneurysm. IVC:The visualized portions of the inferior vena cava are unremarkable. IMPRESSION: 1.Normal abdominal ultrasound examination. 2. The gallbladder has been previously removed. 3. The spleen, pancreas, liver and kidneys are unremarkable. [facility]-[id number] Procedure Note Interface, Radiology Results Incoming - 12/08/2017 4:19 PM CDT EXAM: US ABDOMEN COMPLETE CLINICAL DATA: R10.11 Right upper quadrant pain, ABD PAIN COMPARISON: NONE. FINDINGS: PANCREAS: The visualized portions of the pancreas are within normal limits. LIVER: The liver demonstrates normal echogenicity without focal mass or intrahepatic biliary ductal dilatation. MPV: Doppler evaluation of the portal vein demonstrates normal hepatopedal flow. CBD: 0.66 cm within normal limits. GALLBLADDER: The gallbladder has been surgically removed. RIGHT KIDNEY: The right kidney is normal in size and echogenicity. There is no evidence of mass, calculi, or hydronephrosis. The right kidney measures 12.41 cm LEFT KIDNEY: The left kidney is normal in size and echogenicity. There is no evidence of mass, calculi, or hydronephrosis. The left kidney measures 11.29 cm . SPLEEN: The spleen is homogeneous and not enlarged measuring 9.69 cm AORTA: The visualized upper abdominal aorta demonstrates no evidence of ectasia or aneurysm. IVC: The visualized portions of the inferior vena cava are unremarkable. IMPRESSION: 1. Normal abdominal ultrasound examination. 2. The gallbladder has been previously removed. 3. The spleen, pancreas, liver and kidneys are unremarkable. [facility]-[id number] Performing Organization Address City/State/Zipcode Phone Number [facility] [address] [place] [address] * XR Lumbar Spine 2 Or 3 Vw (11/23/2017 2:12 PM CDT) Narrative Performed At EXAMINATION:XR LUMBAR SPINE 2 OR 3 VW [facility] CLINICAL HISTORY:BACK PAINAFTER TRAUMA COMPARISON:None. IMPRESSION: 3 views of lumbar spine were obtained. 4 nonrib-bearing lumbar type vertebrae. For counting purposes last rib-bearing vertebrae is L1. L2-L5 are nonrib-bearing. Mild retrolisthesis at L4-5 and L5-S1. Mild endplate degenerative changes at L4-5 and L5-S1. No compression fractures or aggressive bony lesions. [facility]-[id number] Procedure Note Interface, Radiology Results Incoming - 11/23/2017 2:19 PM CDT EXAMINATION: XR LUMBAR SPINE 2 OR 3 VW CLINICAL HISTORY: BACK PAIN AFTER TRAUMA COMPARISON: None. IMPRESSION: 3 views of lumbar spine were obtained. 4 nonrib-bearing lumbar type vertebrae. For counting purposes last rib-bearing vertebrae is L1. L2-L5 are nonrib-bearing. Mild retrolisthesis at L4-5 and L5-S1. Mild endplate degenerative changes at L4-5 and L5-S1. No compression fractures or aggressive bony lesions. [facility]-[id number] Performing Organization Address [facility]/[employer] Phone Number [facility] [address] [place] [address] * MRI Pelvis W Wo Contrast (11/15/2017 10:41 AM CDT) Narrative Performed At EXAMINATION:MRI PELVIS W WO CONTRAST [facility] CLINICAL HISTORY:R10.12 Left upper quadrant pain, R10.30 Lower abdominal painunspecified, PELVIC PAINNEGATIVE BETA-HCGSUSPECT WARP SPINNER ETIOLOGY COMPARISON:Ultrasound March 30, 2017, CT September 01, 2017 TECHNIQUE: MR of the pelvis with and without intravenous gadolinium. FINDINGS: Uterus is absent. Small left ovary is identified without suspicious lesion. Right ovary is not seen. No free fluid or fluid collection. No lymphadenopathy. Bladder is nondistended. Large amount of stool may be reflective of constipation. IMPRESSION: No evidence of acute pelvic process or mass. Possible constipation. [facility]-[id number] Procedure Note Interface, Radiology Results Incoming - 11/15/2017 11:20 AM CDT EXAMINATION: MRI PELVIS W WO CONTRAST CLINICAL HISTORY: R10.12 Left upper quadrant pain, R10.30 Lower abdominal pain unspecified, PELVIC PAIN NEGATIVE BETA-HCG SUSPECT WARP SPINNER ETIOLOGY COMPARISON: Ultrasound March 30, 2017, CT September 01, 2017 TECHNIQUE: MR of the pelvis with and without intravenous gadolinium. FINDINGS: Uterus is absent. Small left ovary is identified without suspicious lesion. Right ovary is not seen. No free fluid or fluid collection. No lymphadenopathy. Bladder is nondistended. Large amount of stool may be reflective of constipation. IMPRESSION: No evidence of acute pelvic process or mass. Possible constipation. [facility]-[id number] Performing Organization Address [facility]/[employer] Phone Number [facility] [address] [place] [address] * MRI Abdomen W Wo Contrast (11/15/2017 10:07 AM CDT) Narrative Performed At [facility] EXAMINATION:MRI ABDOMEN W WO CONTRAST CLINICAL HISTORY:R10.12 Left upper quadrant pain, R10.30 Lower abdominal painunspecified, RUQ PAINNO FEVERNO ELEVATED WBC COMPARISON:None. TECHNIQUE: Multiplanar, multisequence MRI of the abdomen with and without intravenous gadolinium. FINDINGS: Liver appears mild to moderately increased in size. There is no focal hepatic mass. No significant fatty infiltration is seen. Spleen is normal in size. Status post cholecystectomy. No biliary dilatation or retained stones. Low insertion of the cystic duct remnant is incidentally seen. Meandering duct is also noted in the pancreatic head, normal in caliber. No pancreatic mass. No ascites. No lymphadenopathy. Unremarkable kidneys and adrenal glands. IMPRESSION: No acute findings or suspicious lesion. Prominent liver size. [id number] Procedure Note Interface, Radiology Results [facility] - 11/15/2017 10:54 AM CDT EXAMINATION: MRI ABDOMEN W WO CONTRAST CLINICAL HISTORY: R10.12 Left upper quadrant pain, R10.30 Lower abdominal pain unspecified, RUQ PAIN NO FEVER NO ELEVATED WBC COMPARISON: None. TECHNIQUE: Multiplanar, multisequence MRI of the abdomen with and without intravenous gadolinium. FINDINGS: Liver appears mild to moderately increased in size. There is no focal hepatic mass. No significant fatty infiltration is seen. Spleen is normal in size. Status post cholecystectomy. No biliary dilatation or retained stones. Low insertion of the cystic duct remnant is incidentally seen. Meandering duct is also noted in the pancreatic head, normal in caliber. No pancreatic mass. No ascites. No lymphadenopathy. Unremarkable kidneys and adrenal glands. IMPRESSION: No acute findings or suspicious lesion. Prominent liver size. [id number] Performing Organization Address City/State/Zipcode Phone Number [facility] [address] [place] [address] after 11/01/2017 Insurance Payer Benefit Subscriber ID Type Phone Address Plan / Group BCBS BCBS OUT xxxxxxxxxxxx PPO OF STATE MEDICAID MEDICAID xxxxxxxxx Medicaid Advance Directives Patient has advance care planning documents on file. For more information, rush e contact: Zain Johnson [address] [place] [address]
--- OUTSIDE RECORDS SUMMARY | 2018-11-02 06:25 | XMS REPORT | Summary of Care ---
Author Author [facility] Organization [facility] Address Unknown Phone Unavailable Encounter SHRUTI Russell(EDEL) [id number] Date(s): 06/21/17 - 06/21/17 [facility] [address] [place] [address]- [phone] Discharge Diagnosis: Abdominal pain in female. Discharge Diagnosis: Chest pain, atypical Discharge Disposition: Home or Self Care Attending Physician: Riky Hinson MD Vital Signs 1 2 3 Most recent to oldest [Reference Range]: 98.7 DegF (06/21/17 4:11 PM) 98.7 DegF (06/21/17 1:06 PM) Temperature Oral [96.4-99.1 DegF] 107/81 mmHg (06/21/17 6:44 PM) 130/72 mmHg (06/21/17 4:11 PM) 140/87 mmHg (06/21/17 1:06 PM) Blood Pressure [90-140/60-90 mmHg] 11 BRMIN *LOW* (06/21/17 6:44 PM) 17 BRMIN (06/21/17 4:11 PM) 20 BRMIN (06/21/17 1:06 PM) Respiratory Rate [14-20 BRMIN] 80 bpm (06/21/17 1:06 PM) Peripheral Pulse Rate [60-100 bpm] 81.818 kg (06/21/17 1:06 PM) Weight Problem List Condition Effective Dates Status Health Status Informant Rash(Confirmed) Resolved HTN Resolved (hypertension)(Confi rmed) Frequent Resolved urination(Confirmed) Sickle cell Resolved disease(Confirmed) Allergies, Adverse Reactions, Alerts Substance Reaction Severity Status codeine Active traMADol Active Medications morphine Sulfate 2 mg, Route: IVP, ONCE, Dosing Weight 81.818, kg, Priority: STAT, Start date: 15:50:00 ORGANIZATIONAL EFFECTIVENESS CONSULTANT, Stop date: 06/21/17 15:50:00 ORGANIZATIONAL EFFECTIVENESS CONSULTANT Start Date: 06/21/17 Stop Date: 06/21/17 Status: Completed [place] 5/325 oral tablet 1 tab, Route: PO, Drug Form: TAB, Dosing Weight 81.818, kg, ONCE, STAT, Start da te: 06/21/17 18:00:00 ORGANIZATIONAL EFFECTIVENESS CONSULTANT, Stop date: 06/21/17 18:00:00 ORGANIZATIONAL EFFECTIVENESS CONSULTANT Notes: (Same as: [place] 325/5) Do not exceed 4gm/day of acetaminophen. Start Date: 06/21/17 Stop Date: 06/21/17 Status: Completed NS (Bolus) IV 1,000 mL, 1,000 ml/hr, Infuse Over: 1 hr, Route: IV, 1,000, Drug form: INJ, ONCE , Priority: STAT, Dosing Weight 81.818 kg, Start date: 06/21/17 15:50:00 ORGANIZATIONAL EFFECTIVENESS CONSULTANT, Du ration: 1 doses or times, Stop date: 06/21/17 15:50:00 ORGANIZATIONAL EFFECTIVENESS CONSULTANT Start Date: 06/21/17 Stop Date: 06/21/17 Status: Completed Omnipaque 300 injectable solution 85 mL, Route: IVP, Drug Form: SOLN, Dosing Weight 81.818, kg, ONCALL, GFR > 45 mL/min, STAT, Start date: 06/21/17 15:57:00 ORGANIZATIONAL EFFECTIVENESS CONSULTANT, Duration: 1 doses or times Notes: (Same as:Omnipaque 300).WASTE: F/P - Black; E - Municipal Trash Bin Start Date: 06/21/17 Stop Date: 06/21/17 Status: Completed Results BLOOD BANK RESULTS Most recent to 1 oldest [Reference Range]: ABO/Rh O POS *Unknown* (06/21/17 2:48 PM) Antibody Scrn Negative (06/21/17 2:48 PM) ELECTROLYTES Most recent to 1 oldest [Reference Range]: Sodium Lvl [135-145 141 mEq/L mEq/L] (06/21/17 2:48 PM) Potassium Lvl 3.8 mEq/L [3.5-5.1 mEq/L] (06/21/17 2:48 PM) Chloride Lvl [95-109 104 mEq/L mEq/L] (06/21/17 2:48 PM) CO2 [24-32 mEq/L] 34 mEq/L *HI* (06/21/17 2:48 PM) AGAP [10.0-20.0 6.8 mEq/L mEq/L] *LOW* (06/21/17 2:48 PM) CHEM PANEL Most recent to 1 oldest [Reference Range]: Creatinine Lvl 0.80 mg/dL [0.50-1.40 mg/dL] (06/21/17 2:48 PM) eGFR 97 mL/min/1.73m2 1 *NA* (06/21/17 2:48 PM) BUN [7-22 mg/dL] 4 mg/dL *LOW* (06/21/17 2:48 PM) Glucose Lvl [70-99 89 mg/dL mg/dL] (06/21/17 2:48 PM) Calcium Lvl 8.4 mg/dL [8.5-10.5 mg/dL] *LOW* (06/21/17 2:48 PM) Lipase Lvl [73-393 149 unit/L unit/L] (06/21/17 2:48 PM) 1Result Comment: The eGFR is calculated using the CKD-EPI formula. In most young, healthy individuals the eGFR will be >90 mL/min/1.73m2. The eGFR declines with age. An eGFR of 60-89 may be normal in some populations, particularly the elderly, for whom the CKD-EPI formula has not been extensively validated. Use of the eGFR is not recommended in the following populations: Individuals with unstable creatinine concentrations, including patients and those with serious co-morbid conditions. Patients with extremes in muscle mass or diet. The data above are obtained from the National Kidney Disease Education Program ( NKDEP) which additionally recommends that when the eGFR is used in patients with extremes of body mass index for purposes of drug dosing, the eGFR should be mul tiplied by the estimated BMI. CARDIAC ENZYMES Most recent to 1 oldest [Reference Range]: Total CK [12-191 59 unit/L unit/L] (06/21/17 2:48 PM) CK MB [0.5-3.6 <0.5 ng/mL ng/mL] (06/21/17 2:48 PM) CK MB Index <0.8 [0.0-2.5] (06/21/17 2:48 PM) Troponin-I <0.02 ng/mL [0.00-0.40 ng/mL] (06/21/17 2:48 PM) ENDOCRINOLOGY Most recent to 1 oldest [Reference Range]: S Preg [Negative] Negative *NA* (06/21/17 2:48 PM) URINE AND STOOL Most recent to 1 oldest [Reference Range]: UA Turbidity [Clear] Clear (06/21/17 2:48 PM) UA Color [Yellow] Light Yellow *NA* (06/21/17 2:48 PM) UA pH [5.0-8.0] 6.0 (06/21/17 2:48 PM) UA Spec Grav 1.014 [<=1.030] (06/21/17 2:48 PM) UA Glucose [Negative Negative mg/dL mg/dL] *NA* (06/21/17 2:48 PM) UA Blood [Negative] Negative (06/21/17 2:48 PM) UA Ketones [Negative Negative mg/dL mg/dL] *NA* (06/21/17 2:48 PM) UA Protein [Negative Negative mg/dL mg/dL] (06/21/17 2:48 PM) UA Urobilinogen <=1.0 mg/dL [0.1-1.0 mg/dL] *NA* (06/21/17 2:48 PM) UA Bili [Negative] Negative *NA* (06/21/17 2:48 PM) UA Leuk Est Negative [Negative] (06/21/17 2:48 PM) UA Nitrite Negative [Negative] (06/21/17 2:48 PM) UA WBC [0-5 /HPF] 1 /HPF (06/21/17 2:48 PM) UA RBC [0-2 /HPF] <1 /HPF (06/21/17 2:48 PM) UA Bacteria [None Occasional /HPF Seen /HPF] *NA* (06/21/17 2:48 PM) UA Sq Epi [Few /LPF] Many /LPF *ABN* (06/21/17 2:48 PM) UA Mucus [None Seen Few /LPF /LPF] *NA* (06/21/17 2:48 PM) HEMATOLOGY Most recent to 1 oldest [Reference Range]: WBC [3.7-10.4 K/CMM] 4.3 K/CMM (06/21/17 2:48 PM) RBC [4.20-5.40 3.88 M/CMM M/CMM] *LOW* (06/21/17 2:48 PM) Hgb [12.0-16.0 g/dL] 11.2 g/dL *LOW* (06/21/17 2:48 PM) Hct [36.0-48.0 %] 34.0 % *LOW* (06/21/17 2:48 PM) MCV [80.0-98.0 fL] 87.7 fL (06/21/17 2:48 PM) MCH [27.0-31.0 pg] 28.8 pg (06/21/17 2:48 PM) MCHC [32.0-36.0 32.9 g/dL g/dL] (06/21/17 2:48 PM) RDW [11.5-14.5 %] 14.2 % (06/21/17 2:48 PM) Platelet [133-450 224 K/CMM K/CMM] (06/21/17 2:48 PM) MPV [7.4-10.4 fL] 9.1 fL (06/21/17 2:48 PM) Segs [45.0-75.0 %] 39.3 % *LOW* (06/21/17 2:48 PM) Lymphocytes 47.5 % [20.0-40.0 %] *HI* (06/21/17 2:48 PM) Monocytes [2.0-12.0 5.8 % %] (06/21/17 2:48 PM) Eosinophils [0.0-4.0 6.5 % %] *HI* (06/21/17 2:48 PM) Basophils [0.0-1.0 0.9 % %] (06/21/17 2:48 PM) Segs-Bands # 1.7 K/CMM [1.5-8.1 K/CMM] (06/21/17 2:48 PM) Lymphocytes # 2.0 K/CMM [1.0-5.5 K/CMM] (06/21/17 2:48 PM) Monocytes # [0.0-0.8 0.2 K/CMM K/CMM] (06/21/17 2:48 PM) Eosinophils # 0.3 K/CMM [0.0-0.5 K/CMM] (06/21/17 2:48 PM) Basophils # [0.0-0.2 0.0 K/CMM K/CMM] (06/21/17 2:48 PM) PT [12.0-14.7 14.2 seconds seconds] (06/21/17 2:48 PM) INR [0.85-1.17] 1.10 (06/21/17 2:48 PM) PTT [22.9-35.8 33.0 seconds seconds] (06/21/17 2:48 PM) Immunizations No data available for this section Procedures Procedure Date Related Diagnosis Body Site section Cholecystectomy Hysterectomy1 Knee joint operation 1Still has left ovary. Social History Social History Type Response Smoking Status Never smoker; Previous treatment: None; Ready to change: No; Concerns about tobacco use in household: No; Exposure to Tobacco Smoke None; Cigarette Smoking Last 365 Days No; Reg Smoking Cessation Counseling No Assessment and Plan No data available for this section
--- OUTSIDE RECORDS SUMMARY | 2018-11-02 06:25 | XMS REPORT | Clinical Summary ---
Author Author SHONDA [facility] [place] Organization [facility] Address Unknown Phone Unavailable Care Team Providers Care Janitor Cleaner Name Role Phone UsmanLos nelson Gregorio PCP Allergies Comments Active Allergy Reactions Severity Noted Date Codeine Swelling, Low 05/24/2017 Rash Ketorolac Itching, Low 04/07/2018 Swelling, Rash Tramadol Itching, 05/24/2017 Swelling Medications End Date Status Medication Sig Dispensed Refills Start Date Active dexlansoprazole 60 mg Take 60 mg by 0 capsule mouth daily. Active promethazine (PHENERGAN) Take 25 mg by 0 25 MG tablet mouth every 6 (six) hours as needed for Nausea. Active busPIRone (BUSPAR) 15 MG Take 15 mg by 0 tablet mouth 3 (three) times daily as needed . Active traZODone (DESYREL) 100 Take 100 mg 0 MG tablet by mouth nightly. Active amitriptyline (ELAVIL) 50 Take 50 mg by 0 MG tablet mouth nightly. Active DULoxetine (CYMBALTA) 60 Take 60 mg by 0 MG capsule mouth daily. Active gabapentin (NEURONTIN) Take 300 mg 0 300 MG capsule by mouth daily. Active levothyroxine (SYNTHROID, Take 75 mcg 0 LEVOTHROID) 75 MCG tablet by mouth Every morning on an empty stomach. Active levETIRAcetam (KEPPRA) Take 500 mg 0 500 MG tablet by mouth 2 (two) times daily. Active pregabalin (LYRICA) 75 MG Take 75 mg by 0 capsule mouth 2 (two) times daily. Active metoprolol (LOPRESSOR) 25 Take 25 mg by 0 MG tablet mouth 2 (two) times daily. Active topiramate (TOPAMAX) 200 Take 200 mg 0 MG tablet by mouth 2 (two) times daily. Active zolpidem (AMBIEN) 10 mg Take 10 mg by 0 tablet mouth every night as needed for Insomnia. Active ZOLMitriptan (ZOMIG) 5 mg by Nasal 0 nasal solution route as needed for Migraine. Active sertraline (ZOLOFT) 50 MG Take 50 mg by 0 tablet mouth daily. Active oxyCODONE-acetaminophen Take 1 tablet 0 (PERCOCET) 10-325 mg per by mouth tablet every 6 (six) hours as needed for Pain. Active methocarbamol (ROBAXIN) Take 500 mg 0 500 MG tablet by mouth 2 (two) times daily. Active clonazePAM (KLONOPIN) 1 Take 1 mg by 0 MG tablet mouth 2 (two) times daily as needed for Anxiety. Active perampanel (FYCOMPA) 8 mg Take 8 mg by 0 Tab mouth daily. Active pilocarpine (SALAGEN) 5 Take 5 mg by 0 MG tablet mouth 4 (four) times daily. Active brexpiprazole (REXULTI) 2 Take 2 mg by 0 mg Tab tablet mouth daily. 04/07/2018 Discontinued escitalopram oxalate Take 20 mg by 0 (LEXAPRO) 20 MG tablet mouth daily. 04/07/2018 Discontinued HYDROcodone-acetaminophen Take 1 tablet 0 (NORCO 10-325) 10-325 mg by mouth per tablet every 6 (six) hours as needed for Pain. 04/07/2018 Discontinued naproxen (NAPROSYN) 500 Take 500 mg 0 MG tablet by mouth 2 (two) times daily with breakfast and dinner. 04/07/2018 Discontinued baclofen (LIORESAL) 10 MG Take 10 mg by 0 tablet mouth 4 (four) times daily. 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 Seizure disorder Overview: last seizure 01/2018 Obstructive sleep apnea on CPAP Multiple sclerosis Hypertension Overview: controlled with meds since 2017 GERD (gastroesophageal reflux disease) Hyperlipidemia Coronary artery disease Chronic back pain Thyroid disease Overview: hypothyroid Encounters Care Team Description Date Type Specialty Rhiannon Bryant PA-C Non-intractable vomiting with nausea, unspecified vomiting type 06/27/2018 Hospital Encounter Rhiannon Bryant PA-C 06/27/2018 Outside Orders Rhiannon Bryant PA-C Non-intractable vomiting with nausea, unspecified vomiting type (Primary Dx) 06/21/2018 Orders Only Franki Biggs MD 04/13/2018 Anesthesia Event Lluvia Grace MD LAPAROTOMY,EXPLORATORY 04/13/2018 Surgery Milagros Tafoya MD Ozaki, Claire F., MD Chronic low back pain, unspecified back pain laterality, with sciatica presence unspecified; Post-op pain 04/13/2018 [facility] General Internal Medicine - Encounter 04/21/2018 Milagros Tafoya MD 04/07/2018 Hospital Pre-Admission Testing Encounter Lluvia Grace MD Small bowel mass 03/24/2018 Hospital Radiology Encounter Lluvia Grace MD Small bowel mass (Primary Dx) 03/23/2018 Outside Orders Central Scheduling Lluvia Grace MD 03/22/2018 Orders Only after 11/01/2017 Social History Date Tobacco Use Types Packs/Day Years Used Never Smoker Smokeless Tobacco: Never Used Alcohol Use Drinks/Week oz/Week Comments No Sex Assigned at Date Recorded Not on file Industry Job Start Date Occupation Not on file Not on file Not on file Travel End Travel History Travel Start No recent travel history available. Last Filed Vital Signs Time Taken Vital Sign Reading 04/21/2018 11:26 AM CDT Blood Pressure 122/80 04/21/2018 11:26 AM CDT Pulse 90 04/21/2018 11:26 AM CDT Temperature 36.8 C (98.2 F) 04/21/2018 11:26 AM CDT Respiratory Rate 19 04/21/2018 11:26 AM CDT Oxygen Saturation 99% - Inhaled Oxygen - Concentration 04/13/2018 9:05 AM CDT Weight 96.4 kg (212 lb 8 oz) 04/13/2018 9:05 AM CDT Height 170.2 cm (5' 7") 04/13/2018 9:05 AM CDT Body Mass Index 33.28 Plan of Treatment Not on file Implants Device Identifier Shelf Expiration Date Model / Serial / Lot Implanted Type Area Manufactur er [id number] 01/14/2020 4301-02 / / [id number] Memb Seprafilm Adhen Velez 5x6 Cement/Aly N/A: Abdomen GENZYME 4301-02 - [id number] ler/Adhesi LESLIE: Implanted: Qty: 1 on 04/13/2018 by ve BIO-SURG Lluvia Grace MD Procedures Comments Procedure Name Priority Date/Time Associated Diagnosis INTRAOPERATIVE PATH 06/29/2018 REPORT - SCAN 1:30 PM [employer]IRE[employer] [place] SMALL BOWEL SERIES Routine 06/27/2018 Non-intractable vomiting 1:54 PM [employer] COUNSEL[employer] with nausea, unspecified vomiting type XR ABDOMEN 1 VIEW STAT 04/18/2018 11:30 AM CDT CBC (HEMOGRAM ONLY) Routine 04/18/2018 11:11 AM CDT CBC (HEMOGRAM ONLY) Routine 04/16/2018 5:33 AM CDT PHOSPHORUS Routine 04/16/2018 5:33 AM CDT MAGNESIUM Routine 04/16/2018 5:33 AM CDT BASIC METABOLIC PANEL (7) Routine 04/16/2018 5:33 AM CDT CBC (HEMOGRAM ONLY) Routine 04/15/2018 6:50 AM CDT PHOSPHORUS Routine 04/15/2018 6:31 AM CDT MAGNESIUM Routine 04/15/2018 6:31 AM CDT BASIC METABOLIC PANEL (7) Routine 04/15/2018 6:31 AM CDT CBC (HEMOGRAM ONLY) Routine 04/14/2018 6:57 AM CDT PHOSPHORUS Routine 04/14/2018 6:57 AM CDT MAGNESIUM Routine 04/14/2018 6:57 AM CDT BASIC METABOLIC PANEL (7) Routine 04/14/2018 6:57 AM CDT TISSUE EXAM AP Routine 04/13/2018 2:47 PM CDT RESECTION,SMALL INTESTINE 04/13/2018 Small bowel mass 12:15 PM CDT Special Needs (PEDIA COLON SCOPE) LAPAROTOMY,EXPLORATORY 04/13/2018 Small bowel mass 12:15 PM CDT Special Needs (PEDIA COLON SCOPE) POCT-GLUCOSE METER Routine 04/13/2018 10:22 AM CDT TRANSFUSION SERVICE 04/08/2018 REPORT - SCAN 6:04 PM CDT TYPE AND SCREEN, Routine 04/07/2018 AUTOMATED 2:38 PM CDT GLUCOSE Routine 04/07/2018 2:38 PM CDT BUN AND CREATININE Routine 04/07/2018 2:38 PM CDT ELECTROLYTE PANEL Routine 04/07/2018 2:38 PM CDT PLATELET COUNT Routine 04/07/2018 2:38 PM CDT HEMOGLOBIN Routine 04/07/2018 2:[address] ABDOMEN/PELVIS WITH IV Routine 03/24/2018 Small bowel mass CONTRAST 3:17 PM CDT after 11/01/2017 Results * INTRAOPERATIVE PATH REPORT - SCAN (06/29/2018 1:30 PM RETIREMENT PLAN COUNSELOR) Narrative Performed At * [place] small bowel series (06/27/2018 1:54 PM RETIREMENT PLAN COUNSELOR) Narrative Performed At FINAL REPORT [facility] TECHNIQUE: Small bowel follow-through INDICATION: Partial obstruction, recent small bowel resection. COMPARISON: CT of the abdomen and pelvis from 03/24/2018. FINDINGS: [employer] radiographs shows cholecystectomy clips in the right upper quadrant and a staple line in the right lower quadrant. There are four nonrib-bearing lumbar vertebral bodies. The contrast did not reach the terminal ileum after four hours. The small bowel loops are normal in caliber and distribution. The jejunal mucosal configuration is normal. The ileal mucosal configuration is normal. The loops of small bowel in the right lower quadrant are mildly prominent in the area near the suture line. Contrast did not pass this area. However, the dilation is not significant enough to suggest an obstruction. Additional images of the lower esophagus were normal. Prior cholecystectomy. Fluoroscopy time: 7.6 minutes Number of images: 410.65 mGy IMPRESSION: Slow transit of contrast through the small bowel, especially once contrast reached the ileum near the sutures. The small bowel near the sutures was prominent, as can be seen after resection. No definite obstruction. The patient had to leave to get her kids from school before the procedure was finished. Its was recommended to the patient that she get a radiograph tomorrow to ensure that the contrast has passed this area. Signed: Mateo Noble MD Report Verified Date/Time:06/27/2018 14:40:29 Reading Location: [address] Radiology Reading Room Procedure Note Interface, External Ris In - 06/27/2018 2:42 PM RETIREMENT PLAN COUNSELOR FINAL REPORT TECHNIQUE: Small bowel follow-through INDICATION: Partial obstruction, recent small bowel resection. COMPARISON: CT of the abdomen and pelvis from 03/24/2018. FINDINGS: [employer] radiographs shows cholecystectomy clips in the right upper quadrant and a staple line in the right lower quadrant. There are four nonrib-bearing lumbar vertebral bodies. The contrast did not reach the terminal ileum after four hours. The small bowel loops are normal in caliber and distribution. The jejunal mucosal configuration is normal. The ileal mucosal configuration is normal. The loops of small bowel in the right lower quadrant are mildly prominent in the area near the suture line. Contrast did not pass this area. However, the dilation is not significant enough to suggest an obstruction. Additional images of the lower esophagus were normal. Prior cholecystectomy. Fluoroscopy time: 7.6 minutes Number of images: 410.65 mGy IMPRESSION: Slow transit of contrast through the small bowel, especially once contrast reached the ileum near the sutures. The small bowel near the sutures was prominent, as can be seen after resection. No definite obstruction. The patient had to leave to get her kids from school before the procedure was finished. Its was recommended to the patient that she get a radiograph tomorrow to ensure that the contrast has passed this area. Signed: Mateo Noble MD Report Verified Date/Time: 06/27/2018 14:40:29 Reading Location: [address] Radiology Reading Room Performing Organization Address City/State/Zipcode Phone Number [facility] * XR abdomen / KUB 1 view (04/18/2018 11:30 AM CDT) Narrative Performed At FINAL REPORT [facility] ONE VIEW ABDOMEN HISTORY: High nasogastric tube output COMPARISON: CT abdomen of 03/24/2018 FINDINGS: 2 supine AP images of the abdomen were obtained. There are surgical james overlying the right lower abdomen and upper pelvis. A nasogastric tube is present, with its tip in the region of the stomach. There are surgical clips in the right upper quadrant of the abdomen. No dilated loops of large or small intestine are identified. No obvious free air is seen on these supine images. Mild subsegmental atelectasis at the right lung base. Signed: Efrem Roth MD Report Verified Date/Time:04/18/2018 12:26:09 Reading Location: [address] Transitional Reading Room Procedure Note Interface, External Ris In - 04/18/2018 12:28 PM CDT FINAL REPORT ONE VIEW ABDOMEN HISTORY: High nasogastric tube output COMPARISON: CT abdomen of 03/24/2018 FINDINGS: 2 supine AP images of the abdomen were obtained. There are surgical james overlying the right lower abdomen and upper pelvis. A nasogastric tube is present, with its tip in the region of the stomach. There are surgical clips in the right upper quadrant of the abdomen. No dilated loops of large or small intestine are identified. No obvious free air is seen on these supine images. Mild subsegmental atelectasis at the right lung base. Signed: Efrem Roth MD Report Verified Date/Time: 04/18/2018 12:26:09 Reading Location: [address] Transitional Reading Room Performing Organization Address City/State/Zipcode Phone Number [facility] * CBC (Hemogram only) (04/18/2018 11:11 AM CDT) Only the most recent of 4 results within the time period is included. WBC 7.2 3.5 - 10.5 K/L [facility] RBC 3.11 (L) 3.93 - 5.22 M/L [facility] Hemoglobin 9.4 (L) 11.2 - 15.7 GM/DL [facility] Hematocrit 27.7 (L) 34.1 - 44.9 % [facility] MCV 89.1 79.4 - 94.8 fL [facility] MCH 30.2 25.6 - 32.2 pg [facility] MCHC 33.9 32.2 - 35.5 GM/DL [facility] RDW 13.2 11.7 - 14.4 % [facility] Platelets 255 150 - 450 K/CU MM [facility] MPV 10.7 9.4 - 12.3 fL [facility] nRBC 0 0 - 0 /100 WBC [facility] Specimen Blood - Arm, Right Performing Organization Address City/[facility] Phone Number [address] * Phosphorus (04/16/2018 5:33 AM CDT) Only the most recent of 3 results within the time period is included. Phosphorus 3.3 2.3 - 4.7 mg/dL [facility] Specimen Blood Performing Organization Address City/[facility] Phone Number [address] * Magnesium (04/16/2018 5:33 AM CDT) Only the most recent of 3 results within the time period is included. Magnesium 1.6 1.6 - 2.6 mg/dL [facility] Specimen Blood Performing Organization Address City/[facility] Phone Number [address] * Basic Metabolic Panel (04/16/2018 5:33 AM CDT) Only the most recent of 3 results within the time period is included. Sodium 139 136 - 145 meq/L [facility] Potassium 3.2 (L) 3.5 - 5.1 meq/L [facility] Chloride 107 98 - 107 meq/L [facility] CO2 22 22 - 29 meq/L [facility] BUN 8 7 - 21 mg/dL [facility] Creatinine 0.76 0.57 - 1.25 mg/dL [facility] Glucose 96 70 - 105 mg/dL [facility] Calcium 9.1 8.4 - 10.2 mg/dL [facility] EGFR 106Comment: ESTIMATED GFR IS mL/min/1.73 sq m [facility] NOT ACCURATE CREATININE [facility] CLEARANCE IN PREDICTING GLOMERULAR FILTRATION RATE. ESTIMATED GFR IS NOT APPLICABLE FOR DIALYSIS PATIENTS. Specimen Blood Performing Organization Address City/State/Zipcode Phone Number [facility] [address] [place] [address] MEDICAL CENTER * Tissue Exam (04/13/2018 2:47 PM CDT) Case Report Surgical Pathology [facility] Report [facility] Case: [id number] Authorizing Provider:Lluvia Grace MD Collected: 04/13/2018 1447 Ordering Location: [facility] PERIOPERATIVE Received: 04/13/2018 1450 SERVICES Pathologist: Saad Pete MD Specimen:Ileum, ILEUM - STITCH IS IN THE PROXIMAL MARGIN (SHOW & TELL) DIAGNOSIS ILEUM, PARTIAL RESECTION: [facility] SMALL INTESTINE WITH [facility] PSEUDOPOLYP-FORMING EPITHELIAL TAG AND SUBEPITHELIAL BENIGN REACTIVE LYMPHOID HYPERPLASIA. NO MORPHOLOGIC OR IMMUNOPHENOTYPIC EVIDENCE OF MALIGNANT LYMPHOMA. NO EVIDENCE OF DYSPLASIA OR INVASIVE CARCINOMA. SEE DIAGNOSTIC COMMENT. Signing Pathologist Direct Phone Line: [phone] COMMENT Histological sections [facility] demonstrate an area of small [facility] intestinal mucosa with isolated subepithelial reactive lymphoid hyperplasia. Immunohistochemical studies performed on block A13 demonstrate the lymphoid follicles to be comprised predominantly of CD20 positive B cells. The parafollicular areas are mostly populated by CD3/CD5 positive T cells. There is no aberrant co-expression of CD20 and CD5. Cyclin D1 immunostain is negative. Germinal centers demonstrate reactive features. They are positive for CD10 and BCL6 and they do not express BCL2. Ki-67 immunostain demonstrates a proliferative index of approximately 80% within the germinal centers and illustrates features of polarization. Plasma cells are polytypic for kappa and lambda immunostains. There is no morphologic or immunophenotypic evidence of malignant lymphoma. There is no evidence of dysplasia or invasive carcinoma. CPT Code(s) 42908, 04830, 47605u0, 39233 [facility] CLINICAL HISTORY Small intestine mass [facility] SPECIMEN SOURCE ileum [facility] GROSS DESCRIPTION Received fresh for [facility] intraoperative consultation [facility] labeled "ileum" is a cylindrical segment of small bowel 5.5 cm in length and 3 cm in diameter. Attached is 4.5 x 1.5 x 1.1 cm of mesenteric fat. The serosal surface is smooth, glistening and dawson-nestor. The specimen is opened longitudinally to reveal a 0.7 x 0.5 x 0.4 cm mobile submucosal mass, located 0.7 cm from the distal margin and 3.5 cm from the proximal. The cut surface of the mass is well circumscribed, soft and homogeneous dawson-white to dawson-yellow, which does not appear to grossly involve the mucosa or the muscularis propria. The remainder of the mucosa is dawson-brown with the expected folds. No other masses or lesions are grossly identified. The specimen is submitted in its entirety as follows: A1-A2, proximal margin, en face; A5-A16, small bowel sectioned parallel to the proximal and distal margins, from proximal to distal, of note A13 through A15 include submucosal mass; A17, distal margin, en face. JY/ew MICROSCOPIC DESCRIPTION Performed. [facility] SPECIAL STUDIES The following special studies [facility] were performed on this case [facility] and the interpretation is incorporated in the diagnostic report above: BLOCK A13- CD20, CD5, CD3, CYCLIN D1, CD10, BCL6, BCL2, KAPPA, LAMBDA KI-67 The immunohistochemistry test was developed and its performance characteristics determined by [facility], Pathology Laboratory. It has not been cleared or approved by the U.S. Food and Drug Administration. The FDA has determined that such clearance or approval is not necessary. The test is used for clinical purposes. It should not be regarded as investigational or for research. This laboratory is certified under the Clinical Laboratory Improvement Amendments of 1988 (CLIA-88) as qualified to perform high complexity clinical laboratory testing. Specimen Tissue - Ileum Performing Organization Address City/[facility]/Zipcode Phone Number [address] * POC-Glucose meter (04/13/2018 10:22 AM CDT) POC-Glucose Meter 108Comment: TESTED AT [facility] 70 - 110 mg/dL [address] Specimen Blood Performing Organization Address [facility] Phone Number [address] * TRANSFUSION SERVICE REPORT - SCAN (04/08/2018 6:04 PM CDT) Narrative Performed At * Type and screen, automated (04/07/2018 2:38 PM CDT) ABO/RH AUTOMATED (BEAKER) O POSITIVE [facility] Ab Scrn NEGATIVE [facility] Specimen Blood Performing Organization Address [facility] Phone Number [address] * BUN and Creatinine (04/07/2018 2:38 PM CDT) BUN 6 (L) 7 - 21 mg/dL [facility] Creatinine 0.82 0.57 - 1.25 mg/dL [facility] EGFR 97Comment: ESTIMATED GFR IS mL/min/1.73 sq m [facility] NOT ACCURATE CREATININE [facility] CLEARANCE IN PREDICTING GLOMERULAR FILTRATION RATE. ESTIMATED GFR IS NOT APPLICABLE FOR DIALYSIS PATIENTS. Specimen Blood Performing Organization Address [facility] [place] [address] [phone] * Platelet count (04/07/2018 2:38 PM CDT) Platelets 192 150 - 450 K/CU MM [facility] Specimen Blood Performing Organization Address [facility] Phone Number [address] * Hemoglobin (04/07/2018 2:38 PM CDT) Hemoglobin 12.4 11.2 - 15.7 GM/DL [facility] Specimen Blood Performing Organization Address [facility] Phone Number [address] * Glucose (04/07/2018 2:38 PM CDT) Glucose 88 70 - 105 mg/dL [facility] Specimen Blood Performing Organization Address [facility] Phone Number [address] * Electrolytes (04/07/2018 2:38 PM CDT) Sodium 138 136 - 145 meq/L [facility] Potassium 3.4 (L) 3.5 - 5.1 meq/L [facility] Chloride 105 98 - 107 meq/L [facility] CO2 27 22 - 29 meq/L [facility] Specimen Blood Performing Organization Address [facility] Phone Number [address] * CT Abdomen/Pelvis with IV Contrast (03/24/2018 3:17 PM CDT) Narrative Performed At FINAL REPORT [facility] History: Small bowel mass. TECHNIQUE: Helical CT of the abdomen and pelvis were performed following the uneventful administration of intravenous contrast utilizing multiple windows, sagittal and coronal reformations. This exam was performed according to our departmental dose optimization program which includes automated exposure control, adjustment of the mA and/or KV according to the patient's size and/or use of iterative reconstruction technique. FINDINGS: No comparisons are available. Abdominal CT: The solid abdominal organs including the liver, spleen, kidneys, pancreas and adrenal glands are unremarkable. The gallbladder is absent and there are surgical clips in the gallbladder fossa consistent with prior cholecystectomy. Stomach, visible portions of the small bowel and colon are normal. No visible masses or evidence for obstruction. No free air or evidence for perforation. No abdominal fluid collections or pathologic adenopathy. Vessels and bones are unremarkable. Images obtained through the lower chest and lung bases are clear. Pelvic CT: The uterus is absent, consistent with hysterectomy. Remaining pelvic organs including the rectum, urinary bladder, visible portions of the small and large bowel are unremarkable. A normal-appearing retrocecal appendix is identified without evidence for acute appendicitis or other acute inflammatory processes. No pelvic fluid collections or pathologic adenopathy. Vessels and bones are unremarkable. IMPRESSION: 1. Negative CT of the abdomen and pelvis. No visible bowel masses, adenopathy or acute abnormalities. Findings consistent with prior cholecystectomy and hysterectomy are noted. Signed: Kevin Lemus MD Report Verified Date/Time:03/24/2018 17:16:14 Reading Location: [address] Radiology Reading Room Procedure Note Interface, External Ris In - 03/24/2018 5:18 PM CDT FINAL REPORT History: Small bowel mass. TECHNIQUE: Helical CT of the abdomen and pelvis were performed following the uneventful administration of intravenous contrast utilizing multiple windows, sagittal and coronal reformations. This exam was performed according to our departmental dose optimization program which includes automated exposure control, adjustment of the mA and/or KV according to the patient's size and/or use of iterative reconstruction technique. FINDINGS: No comparisons are available. Abdominal CT: The solid abdominal organs including the liver, spleen, kidneys, pancreas and adrenal glands are unremarkable. The gallbladder is absent and there are surgical clips in the gallbladder fossa consistent with prior cholecystectomy. Stomach, visible portions of the small bowel and colon are normal. No visible masses or evidence for obstruction. No free air or evidence for perforation. No abdominal fluid collections or pathologic adenopathy. Vessels and bones are unremarkable. Images obtained through the lower chest and lung bases are clear. Pelvic CT: The uterus is absent, consistent with hysterectomy. Remaining pelvic organs including the rectum, urinary bladder, visible portions of the small and large bowel are unremarkable. A normal-appearing retrocecal appendix is identified without evidence for acute appendicitis or other acute inflammatory processes. No pelvic fluid collections or pathologic adenopathy. Vessels and bones are unremarkable. IMPRESSION: 1. Negative CT of the abdomen and pelvis. No visible bowel masses, adenopathy or acute abnormalities. Findings consistent with prior cholecystectomy and hysterectomy are noted. Signed: Kevin Lemus MD Report Verified Date/Time: 03/24/2018 17:16:14 Reading Location: [address] Radiology Reading Room Performing Organization Address City/State/Zipcode Phone Number GE RIS after 11/01/2017 Insurance Payer Benefit Subscriber ID Type Phone Address Plan / Group BLUE CROSS/BLUE SHIELD BCBS OS xxxxxxxxxxxx PPO [phone] [address] POS/PPO/[place] [address] [place] MEDICAID - MEDICAID [id number] MEDICAID xxxxxxxxx Medicaid C[employer] Non-Contra cted Advance Directives For more information, please contact: [facility] [address] [place] [address] Date Inactivated Comments Code Status Date Activated 04/21/2018 1:55 PM Full Code 04/13/2018 9:27 AM This code status was determined by: Patient
--- OUTSIDE RECORDS SUMMARY | 2018-11-02 06:25 | XMS REPORT | Continuity of Care Document ---
Author Author [facility] Interface Address Unknown Phone Unavailable Problems Problem Status Onset Date Classification Date Reported Comments Source RHABDOMYOLYSIS Active 08/21/2018 [facility] Discharge Diagnosis: Abdominal pain in female. 06/21/2017 06/24/2017 [facility] Discharge Diagnosis: Chest pain, atypical 06/21/2017 06/24/2017 [facility] VOMIT BLOOD / SENT BY Active 06/21/2017 [facility] D57.00 Active 01/15/2017 [facility] Discharge Diagnosis: Sickle cell pain crisis 12/17/2016 12/20/2016 [facility] Discharge Diagnosis: Chronic chest wall pain 12/17/2016 12/20/2016 [facility] Discharge Diagnosis: Chest wall pain 12/17/2016 12/20/2016 [facility] Discharge Diagnosis: Acute costochondritis 11/18/2016 11/21/2016 [facility] CHEST PAIN AND SICKLE CELL CRISIS Active 11/18/2016 [facility] DX: R10.11=RIGHT UPPER QUADRANT PAIN Active 09/30/2016 [facility] DX: R10.11=RIGHT UPPER QUADRANT PAIN Active 09/30/2016 [facility] K30 V38.24 E66.3 R10.84 R68.81 Active 09/08/2016 [facility] K30 V38.24 E66.3 R10.84 R68.81 Active 09/08/2016 [facility] R13.1 - DYSPHAGIA Active 09/02/2016 [facility] DYSPAGIA Active 08/28/2016 [facility] DYSPAGIA Active 08/28/2016 [facility] Discharge Diagnosis: Abdominal pain 08/07/2016 08/10/2016 [facility] ABD PAIN Active 08/06/2016 [facility] Rash Resolved Problem 01/23/2017 [facility] HTN (<span ID="[id number]">Confirmed</span>) Resolved Problem 01/23/2017 [facility] Frequent urination Resolved Problem 01/23/2017 [facility] Sickle cell disease Resolved Problem 01/23/2017 [facility] Rash Resolved Problem 06/24/2017 [facility] HTN (<span ID="[id number]">Confirmed</span>) Resolved Problem 06/24/2017 [facility] Frequent urination Resolved Problem 06/24/2017 [facility] Sickle cell disease Resolved Problem 06/24/2017 [facility] Pain, joint, multiple sites Active Diagnosis 03/10/2017 Michelle Naitzelm Photosensitivity Active Diagnosis 03/10/2017 Michelle Najam Hx pulmonary embolism Active Problem 03/10/2017 Michelle Najam Vitamin D deficiency Active Problem 03/10/2017 Michelle Najam DYSPHAGIA Active [facility] Medications Medication Details Route Status Patient Instructions Ordering Provider Order Date Source [place] 5/325 oral tablet 1 tab, Route: PO, Drug Form: TAB, Dosing Weight 81.818, kg, ONCE, STAT, Start date: 06/21/17 18:00:00 GAME MASTER, Stop date: 06/21/17 18:00:00 CSTNotes: (Same as: [place] 325/5) Do not exceed 4gm/day of acetaminophen. Inactive 06/22/2017 [facility] Omnipaque 300 injectable solution 85 mL, Route: IVP, Drug Form: SOLN, Dosing Weight 81.818, kg, ONCALL, GFR > 45 mL/min, STAT, Start date: 06/21/17 15:57:00 GAME MASTER, Duration: 1 doses or timesNotes: (Same as:Omnipaque 300). WASTE: F/P - Black; E - Municipal Trash Bin Inactive 06/21/2017 [facility] morphine Sulfate 2 mg, Route: IVP, ONCE, Dosing Weight 81.818, kg, Priority: STAT, Start date: 06/21/17 15:50:00 GAME MASTER, Stop date: 06/21/17 15:50:00 GAME MASTER Inactive 06/21/2017 [facility] NS (Bolus) IV 1,000 mL, 1,000 ml/hr, Infuse Over: 1 hr, Route: IV, 1,000, Drug form: INJ, ONCE, Priority: STAT, Dosing Weight 81.818 kg, Start date: 06/21/17 15:50:00 GAME MASTER, Duration: 1 doses or times, Stop date: 15:50:00 GAME MASTER Inactive 06/21/2017 [facility] Ergocalciferol 1 capsule Orally Active [id number] UNIT Orally one cap mondays and wednesday [facility] 03/04/2017 [facility] tramadol hydrochloride 50 MG Oral Tablet 50 mg=1 tab, PO, Q6H, PRN Pain, X 5 day, # 20 tab, 0 Refill(s) Active 12/17/2016 [facility] Sodium Chloride 0.9% IV 25 mL, Route: IV, Start date: 12/16/16 23:57:00 CDT, Duration: 30 day, Stop date: 01/15/17 23:56:00 CDT, PRN Line Flush No Longer Active 12/17/2016 [facility] Zofran 4 mg, Route: IVP, Drug form: INJ, ONCE, Dosing Weight 87.455, kg, Priority: STAT, Start date: 12/16/16 23:01:00 CDT, Stop date: 12/16/16 23:01:00 CDT Inactive 12/17/2016 [facility] Morphine 4 mg, Route: IVP, ONCE, Dosing Weight 87.455, kg, Priority: STAT, Start date: 12/16/16 23:01:00 CDT, Stop date: 12/16/16 23:01:00 CDT Inactive 12/17/2016 [facility] Saline Flush 0.9% 10 mL, Route: IVP, Drug Form: INJ, Dosing Weight 87.455, kg, PRN, PRN Line Flush, Start date: 12/16/16 20:21:00 CDT, Duration: 30 day, Stop date: 01/15/17 20:20:00 CDTNotes: (Same as: BD Posiflush) No Longer Active 12/17/2016 [facility] Ondansetron 4 MG Disintegrating Tablet [Zofran] 4 mg=1 tab, PO, TID, PRN Nausea and Vomiting, Dissolve tab under tongue, # 15 tab, 0 Refill(s) Active 11/19/2016 [facility] Acetaminophen 325 MG / Hydrocodone Bitartrate 5 MG Oral Tablet [[place] 5/325] 1-2 tab, PO, Q4-6H, PRN Pain, # 20 tab, 0 Refill(s) Active 11/19/2016 [facility] Ketorolac 30 mg, 1 mL, Route: IVP, Drug form: INJ, ONCE, Dosing Weight 85.909, kg, Priority: STAT, Start date: 11/18/16 17:51:00 CDT, Stop date: 11/18/16 17:51:00 CDTNotes: (Same as:Toradol) IV bolus must be given >15 seconds. Give IM administration slowly and deeply into the muscle. Not for use > 4 days MEDICATION WASTE Product Size: 30 mg Product Wasted: _0__ mg Inactive 11/18/2016 [facility] Ondansetron 4 mg, 2 mL, Route: IVP, Drug form: INJ, ONCE, Dosing Weight 85.909, kg, Priority: STAT, Start date: 11/18/16 17:51:00 CDT, Stop date: 11/18/16 17:51:00 CDTNotes: (Same as: Zofran) MEDICATION WASTE Product Size: 4 mg Product Wasted: _0_ mg Inactive 11/18/2016 [facility] Morphine 4 mg, 1 mL, Route: IVP, Drug form: INJ, ONCE, Dosing Weight 85.909, kg, Priority: STAT, Start date: 11/18/16 17:51:00 CDT, Stop date: 11/18/16 17:51:00 CDTNotes: (Same as:MORPhine Sulfate) Inactive 11/18/2016 [facility] Sodium Chloride 0.9% IV 25 mL, Route: IV, Start date: 11/18/16 17:01:00 CDT, Duration: 30 day, Stop date: 12/18/16 17:00:00 CDT, PRN Line Flush Inactive 11/18/2016 [facility] Saline Flush 0.9% 10 mL, Route: IVP, Drug Form: INJ, Dosing Weight 85.909, kg, PRN, PRN Line Flush, Start date: 11/18/16 17:00:00 CDT, Duration: 30 day, Stop date: 12/18/16 16:59:00 CDTNotes: (Same as: BD Posiflush) Inactive 11/18/2016 [facility] Ondansetron 4 MG Disintegrating Tablet [Zofran] 4 mg=1 tab, PO, Q8H, PRN as needed for nausea/vomiting, X 3 day, # 9 tab, 0 Refill(s) Active 08/07/2016 [facility] tramadol hydrochloride 50 MG Oral Tablet [Ultram] 50 mg=1 tab, PO, Q6H, PRN pain, X 4 day, # 16 tab, 0 Refill(s) Active 08/07/2016 [facility] ibuprofen 800 mg oral tablet 800 mg=1 tab, PO, Q6H, PRN Fever or Pain, Take with food, X 10 day, # 40 tab, 0 Refill(s) Active 08/07/2016 [facility] Morphine 4 mg, 1 mL, Route: IVP, Drug form: SOLN, ONCE, Dosing Weight 77.273, kg, Priority: STAT, Start date: 08/06/16 18:19:00 GAME MASTER, Stop date: 08/06/16 18:19:00 CSTNotes: (Same as:MORPhine Sulfate) Inactive 08/07/2016 [facility] Ondansetron 4 mg, 2 mL, Route: IVP, Drug form: INJ, ONCE, Dosing Weight 77.273, kg, Priority: STAT, Start date: 08/06/16 18:19:00 GAME MASTER, Stop date: 08/06/16 18:19:00 CSTNotes: (Same as: Zofran) MEDICATION WASTE Product Size: 4 mg Product Wasted: ___ mg Inactive 08/07/2016 [facility] Saline Flush 0.9% 10 mL, Route: IVP, Drug Form: INJ, Dosing Weight 77.273, kg, PRN, PRN Line Flush, Start date: 08/06/16 18:19:00 GAME MASTER, Duration: 30 day, Stop date: 09/05/16 18:18:00 CSTNotes: (Same as: BD Posiflush) No Longer Active 08/07/2016 [facility] Sodium Chloride 0.154 MEQ/ML Injectable Solution 1,000 mL, 2,000 ml/hr, Infuse Over: 30 minutes, Route: IV, 1,000, Drug form: INJ, ONCE, Priority: STAT, Dosing Weight 77.273 kg, Start date: 08/06/16 18:19:00 GAME MASTER, Duration: 1 doses or times, Stop date: 08/06/16 18:19:00 GAME MASTER Inactive 08/07/2016 [facility] Promethazine HCL 1 Tab PO Active 25 mg PO Every 6 Hours Najam Michelle Najam Dexilant 1 capsule Orally Active 30 MG Orally Once a day Najam Michelle Najam B12 injection 1 tab Oral Active Oral Najam Michelle Najam Hydrocodone 1 tab Oral Active Oral Najam Michelle Najam Allergies, Adverse Reactions, Alerts Substance Category Reaction Severity Reaction type Status Date Reported Comments Source Codeine Adverse Reaction Info Not Available Adverse Reaction Active 03/04/2017 Michelle Najam Tramadol HCl Adverse Reaction Info Not Available Adverse Reaction Active 03/04/2017 Michelle Najam codeine Assertion Drug allergy Active [facility] traMADol Assertion Drug allergy Active [facility] Immunizations Immunization Date Given Site Status Last Updated Comments Source Results Order Name Results Value Reference Range Date Interpretation Comments Source BLOOD BANK RESULTS Antibody Scrn Negative (06/21/17 2:48 PM) 06/21/2017 [facility] BLOOD BANK RESULTS ABO/Rh O POS 06/21/2017 [facility] CARDIAC ENZYMES Troponin-I null 0.00 - 0.40 06/21/2017 [facility] CARDIAC ENZYMES Total CK 59 unit/L 12 - 191 06/21/2017 [facility] CARDIAC ENZYMES CK MB null 0.5 - 3.6 06/21/2017 [facility] CARDIAC ENZYMES CK MB Index null 0.0 - 2.5 06/21/2017 [facility] CHEM PANEL eGFR 97 mL/min/1.73m2 06/21/2017 Result Comment: The eGFR is calculated using the [...] from the National Kidney Disease Education Program (NKDEP) which additionally recommends that when the eGFR is used in patients with extremes of body mass index for purposes of drug dosing, the eGFR should be multiplied by the estimated BMI. [facility] CHEM PANEL Chloride Lvl 104 meq/L 95 - 109 06/21/2017 [facility] CHEM PANEL Potassium Lvl 3.8 meq/L 3.5 - 5.1 06/21/2017 [facility] CHEM PANEL CO2 34 meq/L 24 - 32 06/21/2017 [facility] CHEM PANEL AGAP 6.8 meq/L 10.0 - 20.0 06/21/2017 [facility] CHEM PANEL Calcium Lvl 8.4 mg/dL 8.5 - 10.5 06/21/2017 [facility] CHEM PANEL Creatinine Lvl 0.80 mg/dL 0.50 - 1.40 06/21/2017 [facility] CHEM PANEL BUN 4 mg/dL 7 - 22 06/21/2017 [facility] CHEM PANEL Glucose Lvl 89 mg/dL 70 - 99 06/21/2017 [facility] CHEM PANEL Sodium Lvl 141 meq/L 135 - 145 06/21/2017 [facility] CHEM PANEL Lipase Lvl 149 unit/L 73 - 393 06/21/2017 [facility] ENDOCRINOLOGY S Preg Negative *NA* (06/21/17 2:48 PM) Negative 06/21/2017 [facility] HEMATOLOGY RBC 3.88 M/CMM 4.20 - 5.40 06/21/2017 [facility] HEMATOLOGY Hgb 11.2 g/dL 12.0 - 16.0 06/21/2017 [facility] HEMATOLOGY MPV 9.1 fL 7.4 - 10.4 06/21/2017 [facility] Platelet 224 K/CMM 133 - 450 06/21/2017 [facility] HEMATOLOGY Hct 34.0 % 36.0 - 48.0 06/21/2017 [facility] WBC 4.3 K/CMM 3.7 - 10.4 06/21/2017 [facility] MCV 87.7 fL 80.0 - 98.0 06/21/2017 [facility] HEMATOLOGY RDW 14.2 % 11.5 - 14.5 06/21/2017 [facility] MCHC 32.9 g/dL 32.0 - 36.0 06/21/2017 [facility] MCH 28.8 pg 27.0 - 31.0 06/21/2017 [facility] HEMATOLOGY INR 1.10 0.85 - 1.17 06/21/2017 [facility] HEMATOLOGY PT 14.2 s 12.0 - 14.7 06/21/2017 [facility] HEMATOLOGY PTT 33.0 s 22.9 - 35.8 06/21/2017 [facility] HEMATOLOGY Segs 39.3 % 45.0 - 75.0 06/21/2017 [facility] HEMATOLOGY Monocytes 5.8 % 2.0 - 12.0 06/21/2017 [facility] HEMATOLOGY Lymphocytes 47.5 % 20.0 - 40.0 06/21/2017 [facility] HEMATOLOGY Eosinophils 6.5 % 0.0 - 4.0 06/21/2017 [facility] HEMATOLOGY Lymphocytes # 2.0 K/CMM 1.0 - 5.5 06/21/2017 [facility] HEMATOLOGY Basophils 0.9 % 0.0 - 1.0 06/21/2017 [facility] HEMATOLOGY Segs-Bands # 1.7 K/CMM 1.5 - 8.1 06/21/2017 [facility] HEMATOLOGY Eosinophils # 0.3 K/CMM 0.0 - 0.5 06/21/2017 [facility] HEMATOLOGY Monocytes # 0.2 K/CMM 0.0 - 0.8 06/21/2017 [facility] HEMATOLOGY Basophils # 0.0 K/CMM 0.0 - 0.2 06/21/2017 [facility] URINE AND STOOL UA Urobilinogen <=1.0 mg/dL 0.1 - 1.0 06/21/2017 [facility] URINE AND STOOL UA Sq Epi Many /LPF Few /LPF 06/21/2017 [facility] URINE AND STOOL UA Blood Negative (06/21/17 2:48 PM) Negative 06/21/2017 [facility] URINE AND STOOL UA Mucus Few /LPF None Seen /LPF 06/21/2017 [facility] URINE AND STOOL UA Bacteria Occasional /HPF None Seen /HPF 06/21/2017 [facility] URINE AND STOOL UA WBC 1 /HPF 0 - 5 06/21/2017 [facility] URINE AND STOOL UA RBC null 0 - 2 06/21/2017 [facility] URINE AND STOOL UA Leuk Est Negative (06/21/17 2:48 PM) Negative 06/21/2017 [facility] URINE AND STOOL UA Nitrite Negative (06/21/17 2:48 PM) Negative 06/21/2017 [facility] URINE AND STOOL UA Bili Negative *NA* (06/21/17 2:48 PM) Negative 06/21/2017 [facility] URINE AND STOOL UA Ketones Negative mg/dL Negative mg/dL 06/21/2017 [facility] URINE AND STOOL UA Turbidity Clear (06/21/17 2:48 PM) Clear 06/21/2017 [facility] URINE AND STOOL UA Color Light Yellow *NA* (06/21/17 2:48 PM) Yellow 06/21/2017 [facility] URINE AND STOOL UA Glucose Negative mg/dL Negative mg/dL 06/21/2017 [facility] URINE AND STOOL UA pH 6.0 5.0 - 8.0 06/21/2017 [facility] URINE AND STOOL UA Protein Negative mg/dL Negative mg/dL 06/21/2017 [facility] URINE AND STOOL UA Spec Grav 1.014 <=1.030 06/21/2017 [facility] ED Abdomen/Pelvis IV contrast only CT ED Abdomen/Pelvis IV contrast only CT PROCEDURE: CT abdomen pelvis with contrast. Reconstruction images. INDICATION: - diffuse abd pain hx of sickle cell disease hx of cholecystectomy, hysterectomy, c/s, states lower back abd pain. TECHNIQUE: GI CONTRAST: None. IV CONTRAST: 75 cc of Omnipaque-300 Axial post-contrast images were obtained from the lower chest to the symphysis pubis in the portal venous and 7 minute delayed phases. Coronal and sagittal reconstruction images were performed. Total CT radiation dose: ITY=5513.61 mGy-cm COMPARISON: CT 08/06/2016. FINDINGS: LOWER CHEST: The visualized lung bases are clear. Normal size of the heart is noted. SOLID ORGANS: No focal hepatic lesion or intrahepatic biliary ductal dilatation is seen. Cholecystectomy clips are seen. The spleen, pancreas, and adrenal glands are normal in appearance. Both kidneys demonstrate normal corticomedullary phase of enhancement. No renal/ureteral calculus, hydronephrosis, mass, or cyst is apparent. BOWEL: The small bowel and colon are normal in caliber without wall thickening. A normal appendix is identified. PERITONEUM: No free intraperitoneal fluid or air. No ventral wall defects. RETROPERITONEUM: Normal caliber of the abdominal aorta is noted. No lymphadenopathy is seen. PELVIS: The visualized urinary bladder wall is normal thickness. The uterus is absent. MUSCULOSKELETAL: No acute osseous abnormality is seen. No destructive lytic or blastic osseous lesion is noted. IMPRESSION: No acute abnormality of the abdomen or pelvis. Prior cholecystectomy and hysterectomy. : [id number] 06/21/2017 - - Read by: Daniel Lim MD Dictated Date/time: 06/21/17 17:23 Electronically Signed by: Daniel Lim MD 06/21/17 17:27 FINAL REPORT [facility] Chest 1view DX Chest 1view DX Clinical Indication: Chest pain - chest pain Comparison: 12/16/2016 FINDINGS: Single AP view of the chest is submitted for interpretation. The lungs are clear and there are no effusions. There is no visible pneumothorax. Cardiomediastinal contours are within normal limits. No gross bony normalities are identified. IMPRESSION: 1. No radiographic evidence of acute cardiopulmonary process. SL: [id number] 06/21/2017 - - Read by: Channing Ley MD Dictated Date/time: 06/21/17 14:31 Electronically Signed by: Channing Ley MD 06/21/17 14:32 FINAL REPORT [facility] CARDIAC ENZYMES Troponin-I null 0.00 - 0.40 12/17/2016 [facility] CARDIAC ENZYMES Total CK 61 unit/L 12 - 191 12/17/2016 [facility] CARDIAC ENZYMES CK MB null 0.5 - 3.6 12/17/2016 [facility] CARDIAC ENZYMES CK MB Index null 0.0 - 2.5 12/17/2016 [facility] CHEM PANEL eGFR 133 mL/min/1.73m2 12/17/2016 Result Comment: The eGFR is calculated using the [...] from the National Kidney Disease Education Program (NKDEP) which additionally recommends that when the eGFR is used in patients with extremes of body mass index for purposes of drug dosing, the eGFR should be multiplied by the estimated BMI. [facility] CHEM PANEL A/G Ratio 1.1 0.7 - 1.6 12/17/2016 [facility] CHEM PANEL Potassium Lvl 3.3 meq/L 3.5 - 5.1 12/17/2016 [facility] CHEM PANEL Sodium Lvl 141 meq/L 135 - 145 12/17/2016 [facility] CHEM PANEL CO2 27 meq/L 24 - 32 12/17/2016 [facility] CHEM PANEL Chloride Lvl 105 meq/L 95 - 109 12/17/2016 [facility] CHEM PANEL Calcium Lvl 8.0 mg/dL 8.5 - 10.5 12/17/2016 [facility] CHEM PANEL Total Protein 6.8 g/dL 6.4 - 8.4 12/17/2016 [facility] CHEM PANEL Glucose Lvl 75 mg/dL 70 - 99 12/17/2016 [facility] CHEM PANEL Creatinine Lvl 0.69 mg/dL 0.50 - 1.40 12/17/2016 [facility] CHEM PANEL BUN 3 mg/dL 7 - 22 12/17/2016 [facility] CHEM PANEL Albumin Lvl 3.6 g/dL 3.5 - 5.0 12/17/2016 [facility] CHEM PANEL ALT 19 unit/L 0 - 65 12/17/2016 [facility] CHEM PANEL Alk Phos 46 unit/L 39 - 136 12/17/2016 [facility] CHEM PANEL AST 10 unit/L 0 - 37 12/17/2016 [facility] CHEM PANEL Bili Total 0.3 mg/dL 0.2 - 1.3 12/17/2016 [facility] CHEM PANEL B/C Ratio 4 6 - 25 12/17/2016 [facility] CHEM PANEL Globulin 3.2 g/dL 2.7 - 4.2 12/17/2016 [facility] CHEM PANEL AGAP 12.3 meq/L 10.0 - 20.0 12/17/2016 [facility] ENDOCRINOLOGY S Preg Negative *NA* (12/16/16 8:38 PM) Negative 12/17/2016 [facility] HEMATOLOGY MPV 8.9 fL 7.4 - 10.4 12/17/2016 [facility] HEMATOLOGY Platelet 242 K/CMM 133 - 450 12/17/2016 [facility] HEMATOLOGY MCHC 33.1 g/dL 32.0 - 36.0 12/17/2016 [facility] HEMATOLOGY RDW 13.6 % 11.5 - 14.5 12/17/2016 [facility] RBC 3.80 M/CMM 4.20 - 5.40 12/17/2016 [facility] Hct 33.0 % 36.0 - 48.0 12/17/2016 [facility] Hgb 10.9 g/dL 12.0 - 16.0 12/17/2016 [facility] MCH 28.8 pg 27.0 - 31.0 12/17/2016 [facility] MCV 86.9 fL 80.0 - 98.0 12/17/2016 [facility] WBC 6.5 K/CMM 3.7 - 10.4 12/17/2016 [facility] PT 14.0 s 12.0 - 14.7 12/17/2016 [facility] INR 1.06 0.85 - 1.17 12/17/2016 [facility] Lymphocytes # 2.4 K/CMM 1.0 - 5.5 12/17/2016 [facility] HEMATOLOGY Eosinophils # 0.2 K/CMM 0.0 - 0.5 12/17/2016 [facility] HEMATOLOGY Monocytes # 0.5 K/CMM 0.0 - 0.8 12/17/2016 [facility] HEMATOLOGY Eosinophils 2.7 % 0.0 - 4.0 12/17/2016 [facility] HEMATOLOGY Segs-Bands # 3.4 K/CMM 1.5 - 8.1 12/17/2016 [facility] Basophils 0.8 % 0.0 - 1.0 12/17/2016 [facility] Lymphocytes 36.8 % 20.0 - 40.0 12/17/2016 [facility] HEMATOLOGY Monocytes 7.2 % 2.0 - 12.0 12/17/2016 [facility] HEMATOLOGY Segs 52.5 % 45.0 - 75.0 12/17/2016 [facility] Chest Pulmonary Embolism CTA Chest Pulmonary Embolism CTA Study: Chest Pulmonary Embolism CTA Clinical Indication: Shortness of Breath - h/o PE, sob; Comparison: Chest x-ray performed earlier the same day TECHNIQUE: Multiple axial CT images of the chest were acquired following the administration of intravenous contrast according to the pulmonary embolism protocol. Sagittal and coronal reformatted images were performed. Dose: QKY=156 mGy-cm FINDINGS: The cardiac chambers and pericardium are unremarkable. There are no segmental pulmonary emboli noted. The main, right, and left pulmonary arteries are normal. No thoracic aortic aneurysm or dissection is seen. No pathologic mediastinal, hilar, or axillary adenopathy is seen. No endobronchial lesions are identified within the central airways. The lungs are clear and without consolidation, mass, or pulmonary nodule. No pleural effusion or pneumothorax is seen. The superficial soft tissues of the chest wall are unremarkable. No suspicious osseous lesions are seen. Limited views of the upper abdomen show no focal abnormality. IMPRESSION: 1. No evidence of pulmonary emboli. 2. No acute cardiopulmonary disease. SL: RUDDY 12/16/2016 - - Read by: Corey Harrison MD Dictated Date/time: 12/17/16 00:04 Electronically Signed by: Corey Harrison MD 12/17/16 00:07 FINAL REPORT [facility] Chest 1view DX Chest 1view DX Study: Chest 1view DX 12/16/2016 8:21 PM CDT Clinical Indication: Chest pain - chest pain; Comparison: Chest x-ray 11/18/2016 FINDINGS: The cardiac silhouette and pulmonary vasculature are normal for projection and degree of inspiration. No lobar consolidation, effusion, or pneumothorax. No pleural abnormalities are seen. No acute bony abnormalities. IMPRESSION: No acute intrathoracic abnormalities. SL: AB 12/16/2016 - - Read by: Daniel Ziegler MD Dictated Date/time: 12/16/16 21:31 Electronically Signed by: Daniel Ziegler MD 12/16/16 21:31 FINAL REPORT [facility] CARDIAC ENZYMES CK MB Index 1.5 0.0 - 2.5 11/18/2016 [facility] CARDIAC ENZYMES Total CK 68 unit/L 12 - 191 11/18/2016 [facility] CARDIAC ENZYMES CK MB 1.0 ng/mL 0.5 - 3.6 11/18/2016 [facility] CARDIAC ENZYMES Troponin-I null 0.00 - 0.40 11/18/2016 [facility] CHEM PANEL eGFR 127 mL/min/1.73m2 11/18/2016 Result Comment: The eGFR is calculated using the [...] from the National Kidney Disease Education Program (NKDEP) which additionally recommends that when the eGFR is used in patients with extremes of body mass index for purposes of drug dosing, the eGFR should be multiplied by the estimated BMI. [facility] CHEM PANEL Alk Phos 55 unit/L 39 - 136 11/18/2016 [facility] CHEM PANEL Bili Total 0.3 mg/dL 0.2 - 1.3 11/18/2016 [facility] CHEM PANEL AGAP 14.6 meq/L 10.0 - 20.0 11/18/2016 [facility] CHEM PANEL B/C Ratio 11 6 - 25 11/18/2016 [facility] CHEM PANEL Globulin 3.2 g/dL 2.7 - 4.2 11/18/2016 [facility] CHEM PANEL A/G Ratio 1.2 0.7 - 1.6 11/18/2016 [facility] CHEM PANEL Chloride Lvl 104 meq/L 95 - 109 11/18/2016 [facility] CHEM PANEL Potassium Lvl 3.6 meq/L 3.5 - 5.1 11/18/2016 [facility] CHEM PANEL Sodium Lvl 142 meq/L 135 - 145 11/18/2016 [facility] CHEM PANEL CO2 27 meq/L 24 - 32 11/18/2016 [facility] CHEM PANEL Calcium Lvl 8.7 mg/dL 8.5 - 10.5 11/18/2016 [facility] CHEM PANEL AST 12 unit/L 0 - 37 11/18/2016 [facility] CHEM PANEL Total Protein 7.2 g/dL 6.4 - 8.4 11/18/2016 [facility] CHEM PANEL ALT 18 unit/L 0 - 65 11/18/2016 [facility] CHEM PANEL Albumin Lvl 4.0 g/dL 3.5 - 5.0 11/18/2016 [facility] CHEM PANEL Creatinine Lvl 0.73 mg/dL 0.50 - 1.40 11/18/2016 [facility] CHEM PANEL Glucose Lvl 92 mg/dL 70 - 99 11/18/2016 [facility] CHEM PANEL BUN 8 mg/dL 7 - 22 11/18/2016 [facility] CHEM PANEL Lipase Lvl 183 unit/L 73 - 393 11/18/2016 [facility] HEMATOLOGY PT 13.6 s 12.0 - 14.7 11/18/2016 [facility] HEMATOLOGY INR 1.02 0.85 - 1.17 11/18/2016 [facility] HEMATOLOGY Lymphocytes # 2.6 K/CMM 1.0 - 5.5 11/18/2016 [facility] HEMATOLOGY Segs-Bands # 3.0 K/CMM 1.5 - 8.1 11/18/2016 [facility] HEMATOLOGY Basophils 1.0 % 0.0 - 1.0 11/18/2016 [facility] HEMATOLOGY Monocytes # 0.4 K/CMM 0.0 - 0.8 11/18/2016 [facility] HEMATOLOGY Eosinophils # 0.2 K/CMM 0.0 - 0.5 11/18/2016 [facility] HEMATOLOGY Basophils # 0.1 K/CMM 0.0 - 0.2 11/18/2016 [facility] HEMATOLOGY Monocytes 6.2 % 2.0 - 12.0 11/18/2016 [facility] HEMATOLOGY Eosinophils 3.0 % 0.0 - 4.0 11/18/2016 [facility] HEMATOLOGY Lymphocytes 41.7 % 20.0 - 40.0 11/18/2016 [facility] HEMATOLOGY Segs 48.1 % 45.0 - 75.0 11/18/2016 [facility] HEMATOLOGY MCH 29.7 pg 27.0 - 31.0 11/18/2016 [facility] HEMATOLOGY MCV 87.8 fL 80.0 - 98.0 11/18/2016 [facility] HEMATOLOGY RDW 13.1 % 11.5 - 14.5 11/18/2016 [facility] HEMATOLOGY Platelet 240 K/CMM 133 - 450 11/18/2016 [facility] HEMATOLOGY MCHC 33.8 g/dL 32.0 - 36.0 11/18/2016 [facility] HEMATOLOGY MPV 9.2 fL 7.4 - 10.4 11/18/2016 [facility] HEMATOLOGY Hct 34.5 % 36.0 - 48.0 11/18/2016 [facility] HEMATOLOGY WBC 6.3 K/CMM 3.7 - 10.4 11/18/2016 [facility] HEMATOLOGY RBC 3.93 M/CMM 4.20 - 5.40 11/18/2016 [facility] HEMATOLOGY Hgb 11.7 g/dL 12.0 - 16.0 11/18/2016 [facility] URINE AND STOOL UA Urobilinogen <=1.0 mg/dL 0.1 - 1.0 11/18/2016 [facility] URINE AND STOOL UA Blood Negative (11/18/16 6:34 PM) Negative 11/18/2016 [facility] URINE AND STOOL UA Leuk Est Negative (11/18/16 6:34 PM) Negative 11/18/2016 [facility] URINE AND STOOL UA Nitrite Negative (11/18/16 6:34 PM) Negative 11/18/2016 [facility] URINE AND STOOL UA Bili Negative *NA* (11/18/16 6:34 PM) Negative 11/18/2016 [facility] URINE AND STOOL UA RBC null 0 - 2 11/18/2016 [facility] URINE AND STOOL UA WBC 1 /HPF 0 - 5 11/18/2016 [facility] URINE AND STOOL UA Mucus Few /LPF None Seen /LPF 11/18/2016 [facility] URINE AND STOOL UA Sq Epi Occasional /LPF Few /LPF 11/18/2016 [facility] URINE AND STOOL UA Turbidity Clear (11/18/16 6:34 PM) Clear 11/18/2016 [facility] URINE AND STOOL UA Color Light Yellow *NA* (11/18/16 6:34 PM) Yellow 11/18/2016 [facility] URINE AND STOOL UA Spec Grav 1.012 <=1.030 11/18/2016 [facility] URINE AND STOOL UA Protein Negative mg/dL Negative mg/dL 11/18/2016 [facility] URINE AND STOOL UA Ketones Negative mg/dL Negative mg/dL 11/18/2016 [facility] URINE AND STOOL UA pH 7.0 5.0 - 8.0 11/18/2016 [facility] URINE AND STOOL UA Glucose Negative mg/dL Negative mg/dL 11/18/2016 [facility] Chest 1view DX Chest 1view DX CHEST FRONTAL VIEW. 11/18/2016 1710 hours HISTORY: Intermittent cough. Pain. COMPARISON: None available FINDINGS: Heart size is within normal limits. Pulmonary vasculature appears within normal limits. No focal infiltrates or effusions identified. No acute osseous abnormality identified. Cholecystectomy clips suggested. IMPRESSION: 1. No evidence for acute cardiopulmonary disease. SL: [id number] 11/18/2016 - - Read by: Bk Lee MD Dictated Date/time: 11/18/16 17:18 Electronically Signed by: Bk Lee MD 11/18/16 17:18 FINAL REPORT [facility] Stomach emptying OR Stomach emptying NM Patient Name: JUANA JEREZ : 1985; Age: 31 years Female MR: [id number] Study: Stomach emptying NM 09/16/2016 12:02 PM [employer] Clinical Indication: R10.84 Generalized abdominal pain bloating, abdominal pain. COMPARISON: Computed axial tomography scan 08/06/2016. TECHNIQUE: 1.1 mCi of sulfur colloid meal was administered orally. Images were performed in anterior projection and an excretion curve plotted. FINDINGS: There is prompt activity identified within the stomach and prompt excretion into the small bowel thereafter. The slope of the excretion curve is within normal limits. The T half life is 161 minutes. (Normal range of 45min- 110min). % excretion at approx. 60 minutes: 26 % % excretion at approx. 90 minutes: 48 % % excretion at approx. 120 minutes: 46 % % excretion at approx. 180 minutes: 53 % % excretion at approx. 240 minutes: 54 % (Normal >90%) IMPRESSION: Decreased gastric emptying. SL: [id number] 09/16/2016 - - Read by: Mikal Shafer MD Dictated Date/time: 09/17/16 06:50 Electronically Signed by: Mikal Shafer MD 09/17/16 06:51 FINAL REPORT [facility] BA swallow function video DX Esophagus BA swallow function video DX EXAM: Esophagus BA swallow function video DX HISTORY: Dysphagia COMPARISON: None FLUOROSCOPY TIME: 48 seconds. NUMBER OF IMAGES: 0 FINDINGS: In conjunction with speech pathology, the patient was given various consistencies mixed with barium during fluoroscopic evaluation. No aspiration or penetration was noted. Please see speech pathology note for further evaluation. IMPRESSION: Status post modified barium swallow. Please see speech pathology note for further evaluation. 09/08/2016 - - Read by: June Sheikh MD Dictated Date/time: 09/08/16 10:53 Electronically Signed by: June Sheikh MD 09/08/16 10:53 FINAL REPORT [facility] Pelvis w Transvag and Pelvis Doppler US Pelvis w Transvag and Pelvis Doppler US Patient Name: JUANA JEREZ. : 1985; Age: 31 years y/o; Female. MR: [id number]. Ordering Physician: Dany Rock MD. PROCEDURE: PELVIC ULTRASOUND. INDICATION: Lower abdominal pain, cystitis. Previous hysterectomy and right oophorectomy 2013. COMPARISON: None. TRANSABDOMINAL SCAN: Uterus is surgically absent. Ovaries are not visualized bilaterally. Bladder is unremarkable. No cystic or solid pelvic mass. No free fluid. TRANSVAGINAL SCAN: Uterus is surgically absent. Ovaries were not visualized. No free fluid or pelvic mass. IMPRESSION: Unremarkable pelvic ultrasound. SL: [id number] 08/14/2016 - - Read by: Maxwell Palmer MD Dictated Date/time: 08/14/16 11:02 Electronically Signed by: Maxwell Palmer MD 08/14/16 11:04 [facility] URINE AND STOOL UA pH 7.0 5.0 - 8.0 08/07/2016 [facility] URINE AND STOOL UA Spec Grav 1.010 <=1.030 08/07/2016 [facility] URINE AND STOOL UA Turbidity Clear (08/06/16 8:53 PM) Clear 08/07/2016 [facility] URINE AND STOOL UA Glucose Negative mg/dL Negative mg/dL 08/07/2016 [facility] URINE AND STOOL UA Protein Negative mg/dL Negative mg/dL 08/07/2016 [facility] URINE AND STOOL UA Bili Negative *NA* (08/06/16 8:53 PM) Negative 08/07/2016 [facility] URINE AND STOOL UA Leuk Est Negative (08/06/16 8:53 PM) Negative 08/07/2016 [facility] URINE AND STOOL UA Sq Epi Occasional /LPF Few /LPF 08/07/2016 [facility] URINE AND STOOL UA Blood Negative (08/06/16 8:53 PM) Negative 08/07/2016 [facility] URINE AND STOOL UA Ketones Negative mg/dL Negative mg/dL 08/07/2016 [facility] URINE AND STOOL UA Nitrite Negative (08/06/16 8:53 PM) Negative 08/07/2016 [facility] URINE AND STOOL UA RBC 2 /HPF 0 - 2 08/07/2016 [facility] URINE AND STOOL UA Bacteria Occasional /HPF None Seen /HPF 08/07/2016 [facility] URINE AND STOOL UA WBC 1 /HPF 0 - 5 08/07/2016 [facility] URINE AND STOOL UA Color Ltyellow 08/07/2016 [facility] URINE AND STOOL UA Urobilinogen <=1.0 mg/dL 0.1 - 1.0 08/07/2016 [facility] CHEM PANEL Globulin 3.5 g/dL 2.7 - 4.2 08/07/2016 [facility] CHEM PANEL B/C Ratio 14 6 - 25 08/07/2016 [facility] CHEM PANEL A/G Ratio 1.2 0.7 - 1.6 08/07/2016 [facility] CHEM PANEL AGAP 10.8 meq/L 10.0 - 20.0 08/07/2016 [facility] CHEM PANEL eGFR 126 mL/min/1.73m2 08/07/2016 Result Comment: The eGFR is calculated using the [...] from the National Kidney Disease Education Program (NKDEP) which additionally recommends that when the eGFR is used in patients with extremes of body mass index for purposes of drug dosing, the eGFR should be multiplied by the estimated BMI. [facility] CHEM PANEL Bili Total 0.5 mg/dL 0.2 - 1.3 08/07/2016 [facility] CHEM PANEL AST 10 unit/L 0 - 37 08/07/2016 [facility] CHEM PANEL ALT 16 unit/L 0 - 65 08/07/2016 [facility] CHEM PANEL Albumin Lvl 4.2 g/dL 3.5 - 5.0 08/07/2016 [facility] CHEM PANEL Chloride Lvl 107 meq/L 95 - 109 08/07/2016 [facility] CHEM PANEL Alk Phos 40 unit/L 39 - 136 08/07/2016 [facility] CHEM PANEL Calcium Lvl 9.0 mg/dL 8.5 - 10.5 08/07/2016 [facility] CHEM PANEL CO2 26 meq/L 24 - 32 08/07/2016 [facility] CHEM PANEL Total Protein 7.7 g/dL 6.4 - 8.4 08/07/2016 [facility] CHEM PANEL Sodium Lvl 140 meq/L 135 - 145 08/07/2016 [facility] CHEM PANEL Glucose Lvl 89 mg/dL 70 - 99 08/07/2016 [facility] CHEM PANEL Potassium Lvl 3.8 meq/L 3.5 - 5.1 08/07/2016 [facility] CHEM PANEL Creatinine Lvl 0.73 mg/dL 0.50 - 1.40 08/07/2016 [facility] CHEM PANEL BUN 10 mg/dL 7 - 22 08/07/2016 [facility] CHEM PANEL Lipase Lvl 150 unit/L 73 - 393 08/07/2016 [facility] CHEM PANEL Amylase Lvl 99 unit/L 25 - 115 08/07/2016 [facility] HEMATOLOGY Monocytes # 0.3 K/CMM 0.0 - 0.8 08/07/2016 [facility] HEMATOLOGY Eosinophils # 0.1 K/CMM 0.0 - 0.5 08/07/2016 [facility] HEMATOLOGY Lymphocytes # 2.3 K/CMM 1.0 - 5.5 08/07/2016 [facility] HEMATOLOGY Lymphocytes 37.6 % 20.0 - 40.0 08/07/2016 [facility] HEMATOLOGY Segs-Bands # 3.3 K/CMM 1.5 - 8.1 08/07/2016 [facility] HEMATOLOGY Eosinophils 1.0 % 0.0 - 4.0 08/07/2016 [facility] HEMATOLOGY Basophils 0.8 % 0.0 - 1.0 08/07/2016 [facility] HEMATOLOGY Segs 55.7 % 45.0 - 75.0 08/07/2016 [facility] HEMATOLOGY Monocytes 4.9 % 2.0 - 12.0 08/07/2016 [facility] HEMATOLOGY RBC 3.99 M/CMM 4.20 - 5.40 08/07/2016 [facility] HEMATOLOGY Hct 35.5 % 36.0 - 48.0 08/07/2016 [facility] HEMATOLOGY MCH 30.1 pg 27.0 - 31.0 08/07/2016 [facility] HEMATOLOGY MCHC 33.8 g/dL 32.0 - 36.0 08/07/2016 [facility] HEMATOLOGY RDW 13.2 % 11.5 - 14.5 08/07/2016 [facility] HEMATOLOGY Hgb 12.0 g/dL 12.0 - 16.0 08/07/2016 [facility] HEMATOLOGY WBC 6.0 K/CMM 3.7 - 10.4 08/07/[address] [facility] MCV 89.1 fL 80.0 - 98.0 08/07/[address] [facility] Platelet 235 K/CMM 133 - 450 08/07/[address] [facility] MPV 9.3 fL 7.4 - 10.4 08/07/2016 [facility] ED Abdomen/Pelvis IV contrast only CT ED Abdomen/Pelvis IV contrast only CT CT ABDOMEN AND PELVIS WITH CONTRAST DATED 08/04/2016. CLINICAL INDICATION: Acute upper and left lower abdominal pain. Nausea. COMPARISON: None. TECHNIQUE: A CT of the abdomen and pelvis was performed using helical images from the thoracic outlet through the pubic symphysis after the intravenous administration of 100cc Omnipaque 300. The study was ordered without bowel contrast. Sagittal and coronal reconstructions were performed. Delayed postcontrast images were obtained. CT Radiation Dose: QLP=8004 mGy-cm FINDINGS: SOLID ORGANS: No acute CT abnormalities of the liver, spleen, pancreas, adrenal glands or kidneys are detected. There is no CT evidence of acute renal collecting system obstruction or calcified renal collecting system stone. BILIARY: The patient is status post cholecystectomy. No significant biliary ductal dilatation is identified. BOWEL: Bowel assessment is limited by the absence of bowel contrast. The appendix is identified and does not appear acutely inflamed. No intestinal dilatation is identified to suggest obstruction. No diverticular disease is noted. PERITONEUM: There is no evidence of free intraperitoneal air. Free intraperitoneal fluid is noted in the pelvis. RETROPERITONEUM: The abdominal aorta is normal in caliber. No retroperitoneal mass or adenopathy. PELVIS: The patient appears to be status post hysterectomy. No abnormalities of the ovaries/adnexa are noted. The urinary bladder is unremarkable. LOWER CHEST: The lung bases appear clear of acute disease. ADDITIONAL COMMENTS: None. IMPRESSION: 1. No acute CT abnormalities of the abdomen or pelvis are detected. SL:131 08/06/2016 - - Read by: Pierre Avitia MD Dictated Date/time: 08/06/16 23:23 Electronically Signed by: Pierre Avitia MD 08/06/16 23:32 FINAL REPORT [facility] Vital Signs Vital Sign Value Date Comments Source Systolic (mm Hg) 107 06/22/2017 [facility] Diastolic (mm Hg) 81 06/22/2017 [facility] Respitory Rate 11 06/22/2017 [facility] Temperature Oral (F) 98.7 F 06/21/2017 [facility] Respitory Rate 17 06/21/2017 [facility] Systolic (mm Hg) 130 06/21/2017 [facility] Diastolic (mm Hg) 72 06/21/2017 [facility] Weight 81.818 06/21/2017 [facility] Temperature Oral (F) 98.7 F 06/21/2017 [facility] Respitory Rate 20 06/21/2017 [facility] Heart Rate 80 06/21/2017 [facility] Systolic (mm Hg) 140 06/21/2017 [facility] Diastolic (mm Hg) 87 06/21/2017 [facility] Height 67 03/04/2017 Michelle Najam Diastolic (mm Hg) 87 03/04/2017 Michelle Najam Systolic (mm Hg) 124 03/04/2017 Michelle Najam Weight 198.6 03/04/2017 Michelle Nam Systolic (mm Hg) 128 12/17/2016 [facility] Diastolic (mm Hg) 90 12/17/2016 [facility] Respitory Rate 27 12/17/2016 [facility] Temperature Oral (F) 98 F 12/17/2016 [facility] Systolic (mm Hg) 129 12/17/2016 [facility] Diastolic (mm Hg) 75 12/17/2016 [facility] Respitory Rate 21 12/17/2016 [facility] Respitory Rate 23 12/17/2016 [facility] Systolic (mm Hg) 136 12/17/2016 [facility] Diastolic (mm Hg) 96 12/17/2016 [facility] Heart Rate 72 12/17/2016 [facility] Temperature Oral (F) 98.1 F 12/17/2016 [facility] Weight 87.455 12/17/2016 [facility] Height 170.18 cm 12/17/2016 [facility] BMI Calculated 30.2 12/17/2016 [facility] BMI Calculated 30.45 12/12/2016 [facility] Weight 88.182 12/12/2016 [facility] Height 170.18 cm 12/12/2016 [facility] Respitory Rate 21 12/12/2016 [facility] Heart Rate 68 12/12/2016 [facility] Temperature Oral (F) 98.6 F 12/12/2016 [facility] Systolic (mm Hg) 136 12/12/2016 [facility] Diastolic (mm Hg) 87 12/12/2016 [facility] Heart Rate 75 11/19/2016 [facility] Temperature Oral (F) 98.6 F 11/19/2016 [facility] Systolic (mm Hg) 116 11/19/2016 [facility] Diastolic (mm Hg) 78 11/19/2016 [facility] Respitory Rate 18 11/19/2016 [facility] BMI Calculated 29.66 11/18/2016 [facility] Height 170.18 cm 11/18/2016 [facility] Weight 85.909 11/18/2016 [facility] Temperature Oral (F) 98.7 F 11/18/2016 [facility] Respitory Rate 20 11/18/2016 [facility] Systolic (mm Hg) 126 11/18/2016 [facility] Diastolic (mm Hg) 83 11/18/2016 [facility] Heart Rate 75 11/18/2016 [facility] Systolic (mm Hg) 155 08/07/2016 [facility] Diastolic (mm Hg) 75 08/07/2016 [facility] Heart Rate 74 08/07/2016 [facility] Respitory Rate 18 08/07/2016 [facility] Temperature Oral (F) 98.4 F 08/07/2016 [facility] Diastolic (mm Hg) 81 08/07/2016 [facility] Systolic (mm Hg) 140 08/07/2016 [facility] Heart Rate 74 08/07/2016 [facility] Respitory Rate 18 08/07/2016 [facility] Temperature Oral (F) 98.4 F 08/07/2016 [facility] Systolic (mm Hg) 134 08/07/2016 [facility] Diastolic (mm Hg) 80 08/07/2016 [facility] Temperature Oral (F) 98.1 F 08/07/2016 [facility] Heart Rate 77 08/07/2016 [facility] Respitory Rate 17 08/07/2016 [facility] Weight 77.273 08/07/2016 [facility] BMI Calculated 26.68 08/07/2016 [facility] Height 170.18 cm 08/07/2016 [facility] Encounters Location Location Details Encounter Type Encounter Number Reason For Visit Attending Provider ADM Date DC Date Status Source [facility] Emergency [id number] Bello Page 08/07/2016 08/07/2016 [facility] Outpatient Imaging - [facility] Services [id number] Dany Rock 08/14/2016 08/15/2016 [facility] Outpatient [id number] ROLDAN QUACHSD 08/19/[address] [facility] OP Therapy Patients [id number] Gabrielajamila Bell 09/02/2016 10/02/2016 [facility] Outpatient Imaging [facility] Outpt Diag Services [id number] Gabriela Bell 09/08/2016 09/09/[address] [facility] Outpatient [id number] Letty Marilee 09/16/2016 09/17/2016 [facility] Outpatient [id number] ROLDAN QUAHCSD 10/14/2016 [facility] Emergency [id number] Alistair Tommie 11/18/2016 11/19/2016 [facility] Emergency [id number] 12/12/2016 12/12/2016 [facility] Emergency [id number] Alexus Ornelas 12/17/2016 12/17/2016 [facility] Outpatient [id number] Katarzyna Thomas 01/20/2017 01/21/2017 [facility] Emergency [id number] Riky Joya 06/21/2017 06/22/2017 [facility] Procedures Procedure Code Date Perfomer Comments Source Cholecystectomy [id number] [facility] Hysterectomy<sup>1</sup> [id number] Still has left ovary. [facility] Cholecystectomy [id number] [facility] Hysterectomy<sup>1</sup> [id number] Still has left ovary. [facility] section [id number] [facility] Cholecystectomy [id number] [facility] Hysterectomy<sup>1</sup> [id number] Still has left ovary. [facility] section [id number] [facility] [id number] [facility] Hysterectomy<sup>1</sup> [id number] Still has left ovary. [facility] Rehab section [id number] [facility] Cholecystectomy [id number] [facility] Hysterectomy<sup>1</sup> [id number] Still has left ovary. [facility] section [id number] [facility] Cholecystectomy [id number] [facility] Hysterectomy<sup>1</sup> [id number] Still has left ovary. [facility] section [id number] [facility] section [id number] [facility] Cholecystectomy [id number] [facility] Hysterectomy<sup>1</sup> [id number] Still has left ovary. [facility] Knee joint operation [id number] [facility]
--- OUTSIDE RECORDS SUMMARY | 2018-11-02 06:26 | XMS REPORT ---
Author Author Michelle Gibson Organization [employer] Address Unknown Phone Unavailable Care Team Providers Care Social Work Msw Name Role Phone Michelle Gibson CP Unavailable Allergies, Adverse Reactions, Alerts Substance Reaction Event Type Codeine Info Not Available Drug Allergy Tramadol HCl Info Not Available Drug Allergy Problems Problem Type Condition Code Onset Dates Condition Status Assessment Pain, joint, multiple sites M25.50 Active Assessment Photosensitivity L56.8 Active Problem Hx pulmonary embolism Z86.711 Active Assessment Hx pulmonary embolism Z86.711 Active Medications Medication Code System Code Instructions Start Date End Date Status Dosage Promethazine HCL NDC 42259765126 25 mg PO Every 6 Hours Active 1 [place] [address]-62 30 MG Orally Once a day Active 1 capsule B12 injection NDC 0 Oral Active 1 tab Hydrocodone NDC 0 Oral Active 1 tab Results No Known Results Summary Purpose [employer] Submission
--- OUTSIDE RECORDS SUMMARY | 2018-11-02 06:26 | XMS REPORT ---
Author Author [facility] Address Unknown Phone Unavailable Care Team Providers Care Marketing Communications Associate Name Role Phone SARITHA STEVENSON Unavailable Unavailable Payers Payer Name Policy Type Policy Number Effective Date Expiration Date Problems This patient has no known problems. Allergies, Adverse Reactions, Alerts Allergy Name Allergy Type Status Severity Reaction(s) Onset Date Inactive Date Treating Clinician Comments tramadol DA Active SV 2018-02-08 00:00:00 ketorolac DA Active SV 2018-02-08 00:00:00 codeine DA Active SV 2016-08-19 00:00:00 Medications This patient has no known medications. Results Test Description Test Time Test Comments Text Results Atomic Results Result Comments FL, SMALL BOWEL ONLY 2018-06-27 14:40:00 Reason for Exam:->Partial obstruction, recent small bowel resectionLocation->[facility] FINAL REPORT TECHNIQUE: Small bowel follow-through INDICATION: Partial obstruction, recent small bowel resection. COMPARISON: CT of the abdomen and pelvis from 03/24/2018. FINDINGS: Crematory Operator radiographs shows cholecystectomy clips in the right upper quadrant and a staple line in the right lower quadrant. There are four nonrib-bearing lumbar vertebral bodies. The contrast did not reac h the terminal ileum after four hours. The [...] were normal. Prior cholecystectomy. Fluoroscopy time: 7.6 minutesNumber of images: 410.65 mGy IMPRESSION: Slow transit [...] has passed this area. Signed: Mateo Noble MDReport Verified Date/Time: 06/27/2018 14:40:29 Reading Location: [address] Radiology Reading Room UE EXAM 2018-04-25 14:56:00 Surgical Pathology Report Case: [id number] Authorizing Provider: Lluvia Grace MD Collected: 04/13/2018 1447 Ord ering Location: [facility] PERIOPERATIVE Received: 04/13/2018 1450 SERVICES Pathologist: Saad Pete MD Specimen: Ileum, ILEUM - STITCH IS IN THE PROXIMAL MARGIN (SHOW & TELL) ILEUM, PARTIAL RESECTION:SMALL INTESTINE WITH PSEUDOPOLYP-FORMING EPITHELIAL TAG AND SUBEPITHELIAL BENIGN REACTIVE LYMPHOID HYPERPLASIA.NO MORPHOLOGIC OR IMMUNOPHENOTYPIC EVIDENCE OF MALIGNANT LYMPHOMA.NO EVIDENCE OF DYSPLASIA OR INVASIVE CARCINOMA.SEE DIAGNOSTIC COMMENT. Signing Pathologist Direct Phone Line: [phone] signed by Saad Pete MD on 04/25/2018 at 2:56 PMHistological sections demonstrate an area of small intestinal mucosa with isolated subepithelial reactive lymphoid [...] no evidence of dysplasia or invasive carcinoma. 21533, 49806, 69445b1, 48403Uvejh intestine massileumReceived fresh for intraoperative consultation labeled "ileum" is a cylindrical segment of [...] submucosal mass; A17, distal margin, en face. JY/ewPerformed.The following special studies were performed on this case and the interpretation is incorporated in the diagnostic report above:BLOCK A13- CD20, CD5, CD3, CYCLIN D1, CD10, BCL6, BCL2, KAPPA, LAMBDA KI-67The immunohistochemistry test was developed and its performance characteristics determined by [facility], Pathology Laboratory. It has not been [...] to perform high complexity clinical laboratory testing. RAD, ABDOMEN/KUB, 1 VIEW AP 2018-04-18 12:26:00 Reason for exam:->high NGT output FINAL REPORT ONE VIEW ABDOMEN HISTORY: High [...] the right lung base. Signed: Efrem Roth MDReport Verified Date/Time: 04/18/2018 12:26:09 Reading Location: [address] Transitional Reading Room (HEMOGRAM ONLY) 2018-04-18 11:19:00 WHITE BLOOD CELL COUNT (BEAKER) (test gsvs=335) 7.2 K/ L 3.5-10.5 RED BLOOD CELL COUNT (BEAKER) (test iivo=495) 3.11 M/ L 3.93-5.22 HEMOGLOBIN (BEAKER) (test qhtm=857) 9.4 GM/DL 11.2-15.7 HEMATOCRIT (BEAKER) (test qgud=047) 27.7 % 34.1-44.9 MEAN CORPUSCULAR VOLUME (BEAKER) (test huur=495) 89.1 fL 79.4-94.8 MEAN CORPUSCULAR HEMOGLOBIN (BEAKER) (test aatn=140) 30.2 pg 25.6-32.2 MEAN CORPUSCULAR HEMOGLOBIN CONC (BEAKER) (test tgst=269) 33.9 GM/DL 32.2-35.5 RED CELL DISTRIBUTION WIDTH (BEAKER) (test vhfw=302) 13.2 % 11.7-14.4 PLATELET COUNT (BEAKER) (test decx=908) 255 K/CU MM 150-450 MEAN PLATELET VOLUME (BEAKER) (test kwwv=059) 10.7 fL 9.4-12.3 NUCLEATED RED BLOOD CELLS (BEAKER) (test mznc=344) 0 /100 WBC 0-0 [id number] 06:56:00* Test Item Value Reference Range Comments PHOSPHORUS (BEAKER) (test ucuf=894) 3.3 mg/dL 2.3-4.7 [id number] 06:56:00* Test Item Value Reference Range Comments MAGNESIUM (BEAKER) (test tmpj=832) 1.6 mg/dL 1.6-2.6 BASIC METABOLIC [id number] 06:56:00* Test Item Value Reference Range Comments SODIUM (BEAKER) (test qsdj=732) 139 meq/L 136-145 POTASSIUM (BEAKER) (test sivj=850) 3.2 meq/L 3.5-5.1 CHLORIDE (BEAKER) (test ahkg=491) 107 meq/L 98-107 CO2 (BEAKER) (test frew=073) 22 meq/L 22-29 BLOOD UREA NITROGEN (BEAKER) (test jgns=543) 8 mg/dL 7-21 CREATININE (BEAKER) (test qnge=826) 0.76 mg/dL 0.57-1.25 GLUCOSE RANDOM (BEAKER) (test sydu=915) 96 mg/dL 70-105 CALCIUM (BEAKER) (test piuo=814) 9.1 mg/dL 8.4-10.2 EGFR (BEAKER) (test ozxw=2182) 106 mL/min/1.73 sq m ESTIMATED GFR IS NOT ACCURATE CREATININE CLEARANCE IN PREDICTING GLOMERULAR FILTRATION RATE. ESTIMATED GFR IS NOT APPLICABLE FOR DIALYSIS PATIENTS. CBC (HEMOGRAM ONLY)2018-04-16 06:33:00* Test Item Value Reference Range Comments WHITE BLOOD CELL COUNT (BEAKER) (test aumy=596) 7.9 K/ L 3.5-10.5 RED BLOOD CELL COUNT (BEAKER) (test jmyl=206) 3.62 M/ L 3.93-5.22 HEMOGLOBIN (BEAKER) (test zmou=484) 10.9 GM/DL 11.2-15.7 HEMATOCRIT (BEAKER) (test yzda=002) 32.8 % 34.1-44.9 MEAN CORPUSCULAR VOLUME (BEAKER) (test bjzw=302) 90.6 fL 79.4-94.8 MEAN CORPUSCULAR HEMOGLOBIN (BEAKER) (test awtr=152) 30.1 pg 25.6-32.2 MEAN CORPUSCULAR HEMOGLOBIN CONC (BEAKER) (test wwrt=238) 33.2 GM/DL 32.2-35.5 RED CELL DISTRIBUTION WIDTH (BEAKER) (test mnit=675) 12.8 % 11.7-14.4 PLATELET COUNT (BEAKER) (test eiyt=534) 206 K/CU MM 150-450 MEAN PLATELET VOLUME (BEAKER) (test bmdc=434) 11.6 fL 9.4-12.3 NUCLEATED RED BLOOD CELLS (BEAKER) (test gbmz=019) 0 /100 WBC 0-0 [id number] 07:17:00* Test Item Value Reference Range Comments PHOSPHORUS (BEAKER) (test epdb=556) 2.3 mg/dL 2.3-4.7 [id number] 07:17:00* Test Item Value Reference Range Comments MAGNESIUM (BEAKER) (test hgnh=048) 1.5 mg/dL 1.6-2.6 BASIC METABOLIC [id number] 07:17:00* Test Item Value Reference Range Comments SODIUM (BEAKER) (test wxxm=308) 139 meq/L 136-145 POTASSIUM (BEAKER) (test mizf=333) 3.0 meq/L 3.5-5.1 CHLORIDE (BEAKER) (test ijss=906) 109 meq/L 98-107 CO2 (BEAKER) (test rbzj=233) 22 meq/L 22-29 BLOOD UREA NITROGEN (BEAKER) (test lqjz=289) 5 mg/dL 7-21 CREATININE (BEAKER) (test mptp=975) 0.74 mg/dL 0.57-1.25 GLUCOSE RANDOM (BEAKER) (test iluf=470) 95 mg/dL 70-105 CALCIUM (BEAKER) (test whrh=026) 8.7 mg/dL 8.4-10.2 EGFR (BEAKER) (test rrmm=0568) 110 mL/min/1.73 sq m ESTIMATED GFR IS NOT ACCURATE CREATININE CLEARANCE IN PREDICTING GLOMERULAR FILTRATION RATE. ESTIMATED GFR IS NOT APPLICABLE FOR DIALYSIS PATIENTS. CBC (HEMOGRAM ONLY)2018-04-15 06:59:00* Test Item Value Reference Range Comments WHITE BLOOD CELL COUNT (BEAKER) (test hzmr=326) 8.1 K/ L 3.5-10.5 RED BLOOD CELL COUNT (BEAKER) (test bgcx=477) 3.57 M/ L 3.93-5.22 HEMOGLOBIN (BEAKER) (test vudf=672) 10.8 GM/DL 11.2-15.7 HEMATOCRIT (BEAKER) (test rctu=341) 32.2 % 34.1-44.9 MEAN CORPUSCULAR VOLUME (BEAKER) (test veiv=900) 90.2 fL 79.4-94.8 MEAN CORPUSCULAR HEMOGLOBIN (BEAKER) (test voei=066) 30.3 pg 25.6-32.2 MEAN CORPUSCULAR HEMOGLOBIN CONC (BEAKER) (test zdxp=777) 33.5 GM/DL 32.2-35.5 RED CELL DISTRIBUTION WIDTH (BEAKER) (test zwdv=638) 13.0 % 11.7-14.4 PLATELET COUNT (BEAKER) (test efnw=147) 189 K/CU MM 150-450 MEAN PLATELET VOLUME (BEAKER) (test nwss=310) 11.1 fL 9.4-12.3 NUCLEATED RED BLOOD CELLS (BEAKER) (test arzb=944) 0 /100 WBC 0-0 [id number] 07:27:00* Test Item Value Reference Range Comments PHOSPHORUS (BEAKER) (test doqp=548) 2.9 mg/dL 2.3-4.7 [id number] 07:27:00* Test Item Value Reference Range Comments MAGNESIUM (BEAKER) (test ldik=849) 1.6 mg/dL 1.6-2.6 BASIC METABOLIC [id number] 07:27:00* Test Item Value Reference Range Comments SODIUM (BEAKER) (test eplj=887) 140 meq/L 136-145 POTASSIUM (BEAKER) (test gusq=095) 3.6 meq/L 3.5-5.1 CHLORIDE (BEAKER) (test blcp=048) 110 meq/L 98-107 CO2 (BEAKER) (test rmrv=670) 22 meq/L 22-29 BLOOD UREA NITROGEN (BEAKER) (test wixd=865) 6 mg/dL 7-21 CREATININE (BEAKER) (test sjnl=366) 0.76 mg/dL 0.57-1.25 GLUCOSE RANDOM (BEAKER) (test leud=542) 111 mg/dL 70-105 CALCIUM (BEAKER) (test ukwl=059) 8.8 mg/dL 8.4-10.2 EGFR (BEAKER) (test dumm=3155) 106 mL/min/1.73 sq m ESTIMATED GFR IS NOT ACCURATE CREATININE CLEARANCE IN PREDICTING GLOMERULAR FILTRATION RATE. ESTIMATED GFR IS NOT APPLICABLE FOR DIALYSIS PATIENTS. CBC (HEMOGRAM ONLY)2018-04-14 07:15:00* Test Item Value Reference Range Comments WHITE BLOOD CELL COUNT (BEAKER) (test khpc=290) 9.2 K/ L 3.5-10.5 RED BLOOD CELL COUNT (BEAKER) (test nzsu=774) 3.71 M/ L 3.93-5.22 HEMOGLOBIN (BEAKER) (test plep=083) 11.1 GM/DL 11.2-15.7 HEMATOCRIT (BEAKER) (test drfv=603) 33.3 % 34.1-44.9 MEAN CORPUSCULAR VOLUME (BEAKER) (test gtqk=838) 89.8 fL 79.4-94.8 MEAN CORPUSCULAR HEMOGLOBIN (BEAKER) (test zjql=593) 29.9 pg 25.6-32.2 MEAN CORPUSCULAR HEMOGLOBIN CONC (BEAKER) (test flwb=351) 33.3 GM/DL 32.2-35.5 RED CELL DISTRIBUTION WIDTH (BEAKER) (test kphy=747) 12.5 % 11.7-14.4 PLATELET COUNT (BEAKER) (test bfjz=668) 185 K/CU MM 150-450 MEAN PLATELET VOLUME (BEAKER) (test muoc=406) 10.9 fL 9.4-12.3 NUCLEATED RED BLOOD CELLS (BEAKER) (test fccv=354) 0 /100 WBC 0-0 POCT-GLUCOSE [id number] 10:24:00* Test Item Value Reference Range Comments POC-GLUCOSE METER (BEAKER) (test xcvc=8017) 108 mg/dL 70-110 [address] [address] [id number] 15:51:00* Test Item Value Reference Range Comments SODIUM (BEAKER) (test ucgs=271) 138 meq/L 136-145 POTASSIUM (BEAKER) (test ylcn=474) 3.4 meq/L 3.5-5.1 CHLORIDE (BEAKER) (test lsaa=885) 105 meq/L 98-107 CO2 (BEAKER) (test fdbe=082) 27 meq/L 22-29 [id number] 15:51:00* Test Item Value Reference Range Comments GLUCOSE RANDOM (BEAKER) (test anra=478) 88 mg/dL 70-105 BUN AND [id number] 15:51:00* Test Item Value Reference Range Comments BLOOD UREA NITROGEN (WESLEY) (test zexv=325) 6 mg/dL 7-21 CREATININE (WESLEY) (test qcra=018) 0.82 mg/dL 0.57-1.25 EGFR (WESLEY) (test arkb=6992) 97 mL/min/1.73 sq m ESTIMATED GFR IS NOT ACCURATE CREATININE CLEARANCE IN PREDICTING GLOMERULAR FILTRATION RATE. ESTIMATED GFR IS NOT APPLICABLE FOR DIALYSIS PATIENTS. [id number] 15:42:00* Test Item Value Reference Range Comments HEMOGLOBIN (WESLEY) (test ccga=086) 12.4 GM/DL 11.2-15.7 PLATELET [id number] 15:42:00* Test Item Value Reference Range Comments PLATELET COUNT (WESLEY) (test dxik=976) 192 K/CU MM 150-450 CT, [id number] 17:16:00FINAL REPORT History: Small bowel mass. TECHNIQUE: Helical [...] small and large bowel are unremarkable. A normal- appearing retrocecal appendix is identified without evidence for acute eddi endicitis or other acute inflammatory processes. No pelvic fluid collections or pathologic adenopathy. Vessels and bones are unremarkable. IMPRESSION: 1. Negati ve CT of the abdomen and pelvis. No visible bowel masses, adenopathy or acute ab normalities. Findings consistent with prior cholecystectomy and hysterectomy are noted. Signed: Kevin Hawthorne Verified Date/Time: 03/24/2018 17:16:14 Reading Location: [address] Radiology Reading Room Electronically robel d by: KEVIN HAWTHORNE M.D. on 03/24/2018 05:16 PM RAD, CHEST, 1 VIEW, NON DEPT 2017-05-24 20:07:00Reason for exam:->chest painIs the patient ?->Unknown FINAL REPORT EXAMINATION: AP PORTABLE CHEST RADIOGRAPH CLINICAL INDICATION: Chest pain IMPRESSION: No comparison studies are available. No evidence of focal lung consolidation, pulmonary edema or pleural effusion. H eart size is normal for this projection. Mediastinal contours are sharp. No evid ence of an acute osseous abnormality or pneumothorax. In summary, no radiographi c evidence of an acute cardiopulmonary process. Signed: Mateus Colindres Ve rified Date/Time: 05/24/2017 20:07:02 Reading Location: [address] [place] Reading Room 0 8:07 PM CBC W/PLT COUNT & AUTO [id number] 17:10:00* Test Item Value Reference Range Comments WHITE BLOOD CELL COUNT (BEAKER) (test rctd=552) 5.2 K/ L 3.5-10.5 RED BLOOD CELL COUNT (BEAKER) (test agbp=958) 4.11 M/ L 3.93-5.22 HEMOGLOBIN (BEAKER) (test vbwt=266) 11.8 GM/DL 11.2-15.7 HEMATOCRIT (BEAKER) (test owmb=141) 35.7 % 34.1-44.9 MEAN CORPUSCULAR VOLUME (BEAKER) (test rptc=873) 86.9 fL 79.4-94.8 MEAN CORPUSCULAR HEMOGLOBIN (BEAKER) (test csga=902) 28.7 pg 25.6-32.2 MEAN CORPUSCULAR HEMOGLOBIN CONC (BEAKER) (test lsnt=783) 33.1 GM/DL 32.2-35.5 RED CELL DISTRIBUTION WIDTH (BEAKER) (test srmr=036) 12.8 % 11.7-14.4 PLATELET COUNT (BEAKER) (test wllp=882) 264 K/CU MM 150-450 MEAN PLATELET VOLUME (BEAKER) (test kzbc=643) 11.0 fL 9.4-12.3 NUCLEATED RED BLOOD CELLS (BEAKER) (test hkjm=520) 0 /100 WBC 0-0 IMMATURE GRANULOCYTES-RELATIVE PERCENT (BEAKER) (test cmjw=1979) 0 % 0-1 (MANUAL DIFFERENTIAL)2017-05-24 17:10:00* Test Item Value Reference Range Comments NEUTROPHILS - REL (DIFF) (BEAKER) (test yhtu=5746) 37 % LYMPHOCYTES - REL (DIFF) (BEAKER) (test yjdx=9929) 49 % MONOCYTES - REL (DIFF) (BEAKER) (test ytmn=7978) 11 % EOSINOPHILS - REL (DIFF) (BEAKER) (test hmzo=5916) 2 % BASOPHILS - REL (DIFF) (BEAKER) (test qpyt=3137) 1 % NEUTROPHILS - ABS (DIFF) (BEAKER) (test tlpc=3203) 1.92 K/ L 1.80-8.00 LYMPHOCYTES - ABS (DIFF) (BEAKER) (test yxgo=8905) 2.55 K/ L 1.48-4.50 MONOCYTES - ABS (DIFF) (BEAKER) (test dlbr=9199) 0.57 K/ L 0.00-1.30 EOSINOPHILS - ABS (DIFF) (BEAKER) (test srpp=0214) 0.10 K/ L 0.00-0.50 BASOPHILS - ABS (DIFF) (BEAKER) (test rmhg=5778) 0.05 K/ L 0.00-0.20 TOTAL COUNTED (BEAKER) (test jnjg=8084) 100 WBC MORPHOLOGY (BEAKER) (test juft=398) Normal PLT MORPHOLOGY (BEAKER) (test uess=384) Normal RBC MORPHOLOGY (BEAKER) (test gshy=251) Normal CREATINE KINASE (CK), TOTAL AND [id number] 16:42:00* Test Item Value Reference Range Comments CREATINE KINASE TOTAL (BEAKER) (test ezsq=637) 100 U/L 29-200 CREATINE KINASE-MB (BEAKER) (test cctx=506) 0.3 ng/mL 0.0-6.6 CREATINE KINASE-MB INDEX (BEAKER) (test aqtk=166) 0.3 % CK-MB Reference Range:<6.7 Normal6.7-10.0 Borderline>10.0 Abnormal TROPONIN [id number] 16:42:00* Test Item Value Reference Range Comments TROPONIN I (BEAKER) (test mgcq=549) < ng/mL 0.00-0.03 Troponin I (TnI) levels must be interpreted in the context of the presenting sym ptoms and the clinical findings. Elevated TnI levels indicate myocardial damage, but are not specific for ischemic heart disease. Elevated TnI levels are seen in patients with other cardiac conditions (including myocarditis and congestive h eart failure), and slight TnI elevations occur in patients with other conditions , including sepsis, renal failure, acidosis, acute neurological disease, and per sistent tachyarrhythmia.[id number] 16:38:00* Test Item Value Reference Range Comments MAGNESIUM (BEAKER) (test mbuu=712) 2.2 mg/dL 1.6-2.6 Specimen slightly hemolyzed BASIC METABOLIC [id number] 16:38:00* Test Item Value Reference Range Comments SODIUM (BEAKER) (test wfhv=887) 138 meq/L 136-145 POTASSIUM (BEAKER) (test bmuk=173) 4.2 meq/L 3.5-5.1 Specimen slightly hemolyzed CHLORIDE (BEAKER) (test wyxm=897) 107 meq/L 98-107 CO2 (BEAKER) (test icei=825) 23 meq/L 22-29 BLOOD UREA NITROGEN (BEAKER) (test twak=242) 7 mg/dL 7-21 CREATININE (BEAKER) (test nbam=521) 0.84 mg/dL 0.57-1.25 Specimen slightly hemolyzed GLUCOSE RANDOM (BEAKER) (test dier=358) 93 mg/dL 70-105 CALCIUM (BEAKER) (test ayrc=251) 9.5 mg/dL 8.4-10.2 EGFR (BEAKER) (test yzoc=7873) 95 mL/min/1.73 sq m ESTIMATED GFR IS NOT ACCURATE CREATININE CLEARANCE IN PREDICTING GLOMERULAR FILTRATION RATE. ESTIMATED GFR IS NOT APPLICABLE FOR DIALYSIS PATIENTS.
--- OUTSIDE RECORDS SUMMARY | 2018-11-02 06:26 | XMS REPORT | Summary of Care ---
Author Author [facility] Organization [facility] Address Unknown Phone Unavailable Encounter SHRUTI Russell(EDEL) [id number] Date(s): 12/11/16 - 12/12/16 [facility] [address] [place] [address]- Discharge Disposition: Left Without Being Seen Vital Signs Most recent to 1 oldest [Reference Range]: Height 170.18 cm (12/11/16 11:19 PM) Temperature Oral 98.6 DegF [96.4-99.1 DegF] (12/11/16 11:19 PM) Blood Pressure 136/87 mmHg [90-140/60-90 mmHg] (12/11/16 11:19 PM) Respiratory Rate 21 BRMIN [14-20 BRMIN] *HI* (12/11/16 11:19 PM) Peripheral Pulse 68 bpm Rate [60-100 bpm] (12/11/16 11:19 PM) Weight 88.182 kg (12/11/16 11:19 PM) Body Mass Index 30.45 m2 (12/11/16 11:19 PM) Problem List Condition Effective Dates Status Health Status Informant Rash(Confirmed) Resolved HTN Resolved (hypertension)(Confi rmed) Frequent Resolved urination(Confirmed) Sickle cell Resolved disease(Confirmed) Allergies, Adverse Reactions, Alerts Substance Reaction Severity Status codeine Active Medications No data available for this section Results No data available for this section Immunizations No data available for this section Procedures Procedure Date Related Diagnosis Body Site section Cholecystectomy Hysterectomy1 1Still has left ovary. Social History Social History Type Response Smoking Status Never smoker; Exposure to Tobacco Smoke None; Cigarette Smoking Last 365 Days No; Reg Smoking Cessation Counseling No Assessment and Plan No data available for this section
--- OUTSIDE RECORDS SUMMARY | 2018-11-02 06:26 | XMS REPORT ---
Author Author Michelle Gibson Organization [employer] Address Unknown Phone Unavailable Care Team Providers Care Register Of Wills Name Role Phone Michelle Gibson CP Unavailable Allergies, Adverse Reactions, Alerts Substance Reaction Event Type Codeine Info Not Available Drug Allergy Tramadol HCl Info Not Available Drug Allergy Problems Problem Type Condition Code Onset Dates Condition Status Problem Hx pulmonary embolism Z86.711 Active Assessment Pain, joint, multiple sites M25.50 Active Problem Vitamin D deficiency E55.9 Active Assessment Vitamin D deficiency E55.9 Active Assessment Photosensitivity L56.8 Active Assessment Hx pulmonary embolism Z86.711 Active Medications Medication Code System Code Instructions Start Date End Date Status Dosage Hydrocodone NDC 0 Oral Active 1 [place] [address]-42 30 MG Orally Once a day Active 1 capsule B12 injection NDC 0 Oral Active 1 [place] [address]-13 61231 UNIT Orally one cap mondays and saturday March 04, 2017 Jul 02, 2017 Active 1 capsule Promethazine HCL ND 93307305495 25 mg PO Every 6 Hours Active 1 Tab Vital Signs Date/Time: March 04, 2017 Height 67 in Blood Pressure Diastolic 87 mm Hg Blood Pressure Systolic 124 mm Hg Weight 198.6 lbs Results No Known Results Summary Purpose [employer] Submission
--- OUTSIDE RECORDS SUMMARY | 2018-11-02 06:26 | XMS REPORT | Summary of Care ---
Author Author [facility] Organization [facility] Address Unknown Phone Unavailable Encounter HQ Eugene_jennifer(FIN) [id number] Date(s): 09/16/16 - 09/16/16 [facility] [address] [address]- Discharge Disposition: Home or Self Care Attending Physician: Letty Hunt MD Referring Physician: Letty Hunt MD Vital Signs No data available for this section Problem List Condition Effective Dates Status Health Status Informant Rash(Confirmed) Resolved Frequent Resolved urination(Confirmed) Allergies, Adverse Reactions, Alerts Substance Reaction Severity [...]
--- OUTSIDE RECORDS SUMMARY | 2018-11-02 06:26 | XMS REPORT | Summary of Care ---
Author Author [facility] Organization [facility] Address Unknown Phone Unavailable Encounter HQ Ludyr_jennifer(FIN) [id number] Date(s): 09/02/16 - 10/01/16 [facility] [address] [place] [address]. [address] [place] [phone] Discharge Disposition: Home or Self Care Attending Physician: Gabriela Bell MD Referring Physician: Gabriela Bell MD Vital Signs No data available for [...]
--- OUTSIDE RECORDS SUMMARY | 2018-11-02 06:26 | XMS REPORT | Summary of Care ---
Author Author [facility] Organization [facility] Address Unknown Phone Unavailable Encounter HQ Josentr_jennifer(FIN) [id number] Date(s): 08/14/16 - 08/14/16 [facility] [address] [address] [place] [address] [phone] Discharge Disposition: Home or Self Care Attending Physician: Dany Rock MD Vital Signs No data available for this section Problem List No data available for this section Allergies, Adverse Reactions, Alerts Substance Reaction Severity Status codeine Active Medications No data available for this section Results No data available for this section Immunizations No data available for this section Procedures Procedure Date Related Diagnosis Body Site Cholecystectomy Hysterectomy1 1Still has left ovary. Social History Social History Type Response Smoking Status Never smoker; Exposure to Tobacco Smoke None; Cigarette Smoking Last 365 Days No; Reg Smoking Cessation Counseling No Assessment and Plan No data available for this section
--- OUTSIDE RECORDS SUMMARY | 2018-11-02 06:26 | XMS REPORT | Summary of Care ---
Author Author [facility] Organization [facility] Address Unknown Phone Unavailable Encounter SHRUTI Russell(EDEL) [phone] Date(s): 12/16/16 - 12/17/16 [facility] [address] [place] [address]- [phone] Discharge Diagnosis: Sickle cell pain crisis Discharge Diagnosis: Chronic chest wall pain Discharge Diagnosis: Chest wall pain Discharge Disposition: Home or Self Care Attending Physician: Alexus Ornelas MD Vital Signs 1 2 3 Most recent to oldest [Reference Range]: 170.18 cm (12/16/16 7:16 PM) Height 98 DegF (12/17/16 12:33 AM) 98.1 DegF (12/16/16 7:16 PM) Temperature Oral [96.4-99.1 DegF] 128/90 mmHg (12/17/16 1:53 AM) 129/75 mmHg (12/17/16 12:33 AM) 136/96 mmHg (12/16/16 11:12 PM) Blood Pressure [90-140/60-90 mmHg] 27 BRMIN *HI* (12/17/16 1:53 AM) 21 BRMIN *HI* (12/17/16 12:33 AM) 23 BRMIN *HI* (12/16/16 11:12 PM) Respiratory Rate [14-20 BRMIN] 72 bpm (12/16/16 7:16 PM) Peripheral Pulse Rate [60-100 bpm] 87.455 kg (12/16/16 7:16 PM) Weight 30.2 m2 (12/16/16 7:16 PM) Body Mass Index Problem List Condition Effective Dates Status Health Status Informant Rash(Confirmed) Resolved HTN Resolved (hypertension)(Confi rmed) Frequent Resolved urination(Confirmed) Sickle cell Resolved disease(Confirmed) Allergies, Adverse Reactions, Alerts Substance Reaction Severity Status codeine Active traMADol Active Medications morphine Sulfate 4 mg, Route: IVP, ONCE, Dosing Weight 87.455, kg, Priority: STAT, Start date: 23:01:00 CDT, Stop date: 12/16/16 23:01:00 CDT Start Date: 12/16/16 Stop Date: 12/16/16 Status: Completed Saline Flush 0.9% 10 mL, Route: IVP, Drug Form: INJ, Dosing Weight 87.455, kg, PRN, PRN Line Flush , Start date: 12/16/16 20:21:00 CDT, Duration: 30 day, Stop date: 01/15/17 20:20 :00 CDT Notes: (Same as: BD Posiflush) Start Date: 12/16/16 Stop Date: 12/17/16 Status: Discontinued Sodium Chloride 0.9% IV 25 mL, Route: IV, Start date: 12/16/16 23:57:00 CDT, Duration: 30 day, Stop date : 01/15/17 23:56:00 CDT, PRN Line Flush Start Date: 12/16/16 Stop Date: 12/17/16 Status: Discontinued tramadol 50 mg oral tablet 50 mg=1 tab, PO, Q6H, PRN Pain, X 5 day, # 20 tab, 0 Refill(s) Start Date: 12/17/16 Stop Date: 12/22/16 Status: Ordered Zofran 4 mg, Route: IVP, Drug form: INJ, ONCE, Dosing Weight 87.455, kg, Priority: STAT , Start date: 12/16/16 23:01:00 CDT, Stop date: 12/16/16 23:01:00 CDT Start Date: 12/16/16 Stop Date: 12/16/16 Status: Completed Results ELECTROLYTES Most recent to 1 oldest [Reference Range]: Sodium Lvl [135-145 141 mEq/L mEq/L] (12/16/16 8:38 PM) Potassium Lvl 3.3 mEq/L [3.5-5.1 mEq/L] *LOW* (12/16/16 8:38 PM) Chloride Lvl [95-109 105 mEq/L mEq/L] (12/16/16 8:38 PM) CO2 [24-32 mEq/L] 27 mEq/L (12/16/16 8:38 PM) AGAP [10.0-20.0 12.3 mEq/L mEq/L] (12/16/16 8:38 PM) CHEM PANEL Most recent to 1 oldest [Reference Range]: Creatinine Lvl 0.69 mg/dL [0.50-1.40 mg/dL] (12/16/16 8:38 PM) eGFR 133 mL/min/1.73m2 1 *NA* (12/16/16 8:38 PM) BUN [7-22 mg/dL] 3 mg/dL *LOW* (12/16/16 8:38 PM) B/C Ratio [6-25] 4 *LOW* (12/16/16 8:38 PM) Glucose Lvl [70-99 75 mg/dL mg/dL] (12/16/16 8:38 PM) Total Protein 6.8 g/dL [6.4-8.4 g/dL] (12/16/16 8:38 PM) Albumin Lvl [3.5-5.0 3.6 g/dL g/dL] (12/16/16 8:38 PM) Globulin [2.7-4.2 3.2 g/dL g/dL] (12/16/16 8:38 PM) A/G Ratio [0.7-1.6] 1.1 (12/16/16 8:38 PM) Calcium Lvl 8.0 mg/dL [8.5-10.5 mg/dL] *LOW* (12/16/16 8:38 PM) ALT [0-65 unit/L] 19 unit/L (12/16/16 8:38 PM) AST [0-37 unit/L] 10 unit/L (12/16/16 8:38 PM) Alk Phos [39-136 46 unit/L unit/L] (12/16/16 8:38 PM) Bili Total [0.2-1.3 0.3 mg/dL mg/dL] (12/16/16 8:38 PM) 1Result Comment: The eGFR is calculated [...] 1 oldest [Reference Range]: Total CK [12-191 61 unit/L unit/L] (12/16/16 8:38 PM) CK MB [0.5-3.6 <0.5 ng/mL ng/mL] (12/16/16 8:38 PM) CK MB Index <0.8 [0.0-2.5] (12/16/16 8:38 PM) Troponin-I <0.02 ng/mL [0.00-0.40 ng/mL] (12/16/16 8:38 PM) ENDOCRINOLOGY Most recent to 1 oldest [Reference Range]: S Preg [Negative] Negative *NA* (12/16/16 8:38 PM) HEMATOLOGY Most recent to 1 oldest [Reference Range]: WBC [3.7-10.4 K/CMM] 6.5 K/CMM (12/16/16 8:38 PM) RBC [4.20-5.40 3.80 M/CMM M/CMM] *LOW* (12/16/16 8:38 PM) Hgb [12.0-16.0 g/dL] 10.9 g/dL *LOW* (12/16/16 8:38 PM) Hct [36.0-48.0 %] 33.0 % *LOW* (12/16/16 8:38 PM) MCV [80.0-98.0 fL] 86.9 fL (12/16/16 8:38 PM) MCH [27.0-31.0 pg] 28.8 pg (12/16/16 8:38 PM) MCHC [32.0-36.0 33.1 g/dL g/dL] (12/16/16 8:38 PM) RDW [11.5-14.5 %] 13.6 % (12/16/16 8:38 PM) Platelet [133-450 242 K/CMM K/CMM] (12/16/16 8:38 PM) MPV [7.4-10.4 fL] 8.9 fL (12/16/16 8:38 PM) Segs [45.0-75.0 %] 52.5 % (12/16/16 8:38 PM) Lymphocytes 36.8 % [20.0-40.0 %] (12/16/16 8:38 PM) Monocytes [2.0-12.0 7.2 % %] (12/16/16 8:38 PM) Eosinophils [0.0-4.0 2.7 % %] (12/16/16 8:38 PM) Basophils [0.0-1.0 0.8 % %] (12/16/16 8:38 PM) Segs-Bands # 3.4 K/CMM [1.5-8.1 K/CMM] (12/16/16 8:38 PM) Lymphocytes # 2.4 K/CMM [1.0-5.5 K/CMM] (12/16/16 8:38 PM) Monocytes # [0.0-0.8 0.5 K/CMM K/CMM] (12/16/16 8:38 PM) Eosinophils # 0.2 K/CMM [0.0-0.5 K/CMM] (12/16/16 8:38 PM) PT [12.0-14.7 14.0 seconds seconds] (12/16/16 8:38 PM) INR [0.85-1.17] 1.06 (12/16/16 8:38 PM) Immunizations No data available for this [...]
--- OUTSIDE RECORDS SUMMARY | 2018-11-02 06:26 | XMS REPORT | Summary of Care ---
Author Author [facility] Organization [facility] Address Unknown Phone Unavailable Encounter SHRUTI Russell(EDEL) [id number] Date(s): 11/18/16 - 11/18/16 [facility] [address] [place] [address]- [phone] Discharge Diagnosis: Acute costochondritis Discharge Disposition: Home or Self Care Attending Physician: Alistair Reilly MD Vital Signs Most recent to 1 2 oldest [Reference Range]: Height 170.18 cm (11/18/16 4:44 PM) Temperature Oral 98.6 DegF 98.7 DegF [96.4-99.1 DegF] (11/18/16 8:38 PM) (11/18/16 4:44 PM) Blood Pressure 116/78 mmHg 126/83 mmHg [90-140/60-90 mmHg] (11/18/16 8:38 PM) (11/18/16 4:44 PM) Respiratory Rate 18 BRMIN 20 BRMIN [14-20 BRMIN] (11/18/16 8:38 PM) (11/18/16 4:44 PM) Peripheral Pulse 75 bpm 75 bpm Rate [60-100 bpm] (11/18/16 8:38 PM) (11/18/16 4:44 PM) Weight 85.909 kg (11/18/16 4:44 PM) Body Mass Index 29.66 m2 (11/18/16 4:44 PM) Problem List Condition Effective Dates Status Health Status Informant Rash(Confirmed) Resolved HTN Resolved (hypertension)(Confi rmed) Frequent Resolved urination(Confirmed) Sickle cell Resolved disease(Confirmed) Allergies, Adverse Reactions, Alerts Substance Reaction Severity Status codeine Active Medications ketOROLAC 30 mg, 1 mL, Route: IVP, Drug form: INJ, ONCE, Dosing Weight 85.909, kg, Priorit y: STAT, Start date: 11/18/16 17:51:00 CDT, Stop date: 11/18/16 17:51:00 CDT Notes: (Same as:Toradol) IV bolus must be given >15 seconds. Give IM administration slowly and deeply into the muscle.Not for use > 4 days MEDICATION WASTE Product Size: 30 mgProduct Wasted: _0__ mg Start Date: 11/18/16 Stop Date: 11/18/16 Status: Completed morphine Sulfate 4 mg, 1 mL, Route: IVP, Drug form: INJ, ONCE, Dosing Weight 85.909, kg, Priority : STAT, Start date: 11/18/16 17:51:00 CDT, Stop date: 11/18/16 17:51:00 CDT Notes: (Same as:MORPhine Sulfate) Start Date: 11/18/16 Stop Date: 11/18/16 Status: Completed [place] 5/325 oral tablet 1-2 tab, PO, Q4-6H, PRN Pain, # 20 tab, 0 Refill(s) Start Date: 11/18/16 Stop Date: 11/21/16 Status: Ordered ondansetron 4 mg, 2 mL, Route: IVP, Drug form: INJ, ONCE, Dosing Weight 85.909, kg, Priority : STAT, Start date: 11/18/16 17:51:00 CDT, Stop date: 11/18/16 17:51:00 CDT Notes: (Same as: Zofran) MEDICATION WASTE Product Size: 4 mgProduct Was haroon: _0_ mg Start Date: 11/18/16 Stop Date: 11/18/16 Status: Completed Saline Flush 0.9% 10 mL, Route: IVP, Drug Form: INJ, Dosing Weight 85.909, kg, PRN, PRN Line Flush , Start date: 11/18/16 17:00:00 CDT, Duration: 30 day, Stop date: 12/18/16 16:59 :00 CDT Notes: (Same as: BD Posiflush) Start Date: 11/18/16 Stop Date: 11/18/16 Status: Discontinued Sodium Chloride 0.9% IV 25 mL, Route: IV, Start date: 11/18/16 17:01:00 CDT, Duration: 30 day, Stop date : 12/18/16 17:00:00 CDT, PRN Line Flush Start Date: 11/18/16 Stop Date: 11/18/16 Status: Discontinued Zofran ODT 4 mg oral tablet, disintegrating 4 mg=1 tab, PO, TID, PRN Nausea and Vomiting, Dissolve tab under tongue, # 15 ta b, 0 Refill(s) Start Date: 11/18/16 Stop Date: 11/21/16 Status: Ordered Results ELECTROLYTES Most recent to 1 oldest [Reference Range]: Sodium Lvl [135-145 142 mEq/L mEq/L] (11/18/16 6:34 PM) Potassium Lvl 3.6 mEq/L [3.5-5.1 mEq/L] (11/18/16 6:34 PM) Chloride Lvl [95-109 104 mEq/L mEq/L] (11/18/16 6:34 PM) CO2 [24-32 mEq/L] 27 mEq/L (11/18/16 6:34 PM) AGAP [10.0-20.0 14.6 mEq/L mEq/L] (11/18/16 6:34 PM) CHEM PANEL Most recent to 1 oldest [Reference Range]: Creatinine Lvl 0.73 mg/dL [0.50-1.40 mg/dL] (11/18/16 6:34 PM) eGFR 127 mL/min/1.73m2 1 *NA* (11/18/16 6:34 PM) BUN [7-22 mg/dL] 8 mg/dL (11/18/16 6:34 PM) B/C Ratio [6-25] 11 (11/18/16 6:34 PM) Glucose Lvl [70-99 92 mg/dL mg/dL] (11/18/16 6:34 PM) Total Protein 7.2 g/dL [6.4-8.4 g/dL] (11/18/16 6:34 PM) Albumin Lvl [3.5-5.0 4.0 g/dL g/dL] (11/18/16 6:34 PM) Globulin [2.7-4.2 3.2 g/dL g/dL] (11/18/16 6:34 PM) A/G Ratio [0.7-1.6] 1.2 (11/18/16 6:34 PM) Calcium Lvl 8.7 mg/dL [8.5-10.5 mg/dL] (11/18/16 6:34 PM) ALT [0-65 unit/L] 18 unit/L (11/18/16 6:34 PM) AST [0-37 unit/L] 12 unit/L (11/18/16 6:34 PM) Alk Phos [39-136 55 unit/L unit/L] (11/18/16 6:34 PM) Bili Total [0.2-1.3 0.3 mg/dL mg/dL] (11/18/16 6:34 PM) Lipase Lvl [73-393 183 unit/L unit/L] (11/18/16 6:34 PM) 1Result Comment: The eGFR is calculated [...] 1 oldest [Reference Range]: Total CK [12-191 68 unit/L unit/L] (11/18/16 6:34 PM) CK MB [0.5-3.6 1.0 ng/mL ng/mL] (11/18/16 6:34 PM) CK MB Index 1.5 [0.0-2.5] (11/18/16 6:34 PM) Troponin-I <0.02 ng/mL [0.00-0.40 ng/mL] (11/18/16 6:34 PM) URINE AND STOOL Most recent to 1 oldest [Reference Range]: UA Turbidity [Clear] Clear (11/18/16 6:34 PM) UA Color [Yellow] Light Yellow *NA* (11/18/16 6:34 PM) UA pH [5.0-8.0] 7.0 (11/18/16 6:34 PM) UA Spec Grav 1.012 [<=1.030] (11/18/16 6:34 PM) UA Glucose [Negative Negative mg/dL mg/dL] *NA* (11/18/16 6:34 PM) UA Blood [Negative] Negative (11/18/16 6:34 PM) UA Ketones [Negative Negative mg/dL mg/dL] *NA* (11/18/16 6:34 PM) UA Protein [Negative Negative mg/dL mg/dL] (11/18/16 6:34 PM) UA Urobilinogen <=1.0 mg/dL [0.1-1.0 mg/dL] *NA* (11/18/16 6:34 PM) UA Bili [Negative] Negative *NA* (11/18/16 6:34 PM) UA Leuk Est Negative [Negative] (11/18/16 6:34 PM) UA Nitrite Negative [Negative] (11/18/16 6:34 PM) UA WBC [0-5 /HPF] 1 /HPF (11/18/16 6:34 PM) UA RBC [0-2 /HPF] <1 /HPF (11/18/16 6:34 PM) UA Sq Epi [Few /LPF] Occasional /LPF *NA* (11/18/16 6:34 PM) UA Mucus [None Seen Few /LPF /LPF] *NA* (11/18/16 6:34 PM) HEMATOLOGY Most recent to 1 oldest [Reference Range]: WBC [3.7-10.4 K/CMM] 6.3 K/CMM (11/18/16 6:34 PM) RBC [4.20-5.40 3.93 M/CMM M/CMM] *LOW* (11/18/16 6:34 PM) Hgb [12.0-16.0 g/dL] 11.7 g/dL *LOW* (11/18/16 6:34 PM) Hct [36.0-48.0 %] 34.5 % *LOW* (11/18/16 6:34 PM) MCV [80.0-98.0 fL] 87.8 fL (11/18/16 6:34 PM) MCH [27.0-31.0 pg] 29.7 pg (11/18/16 6:34 PM) MCHC [32.0-36.0 33.8 g/dL g/dL] (11/18/16 6:34 PM) RDW [11.5-14.5 %] 13.1 % (11/18/16 6:34 PM) Platelet [133-450 240 K/CMM K/CMM] (11/18/16 6:34 PM) MPV [7.4-10.4 fL] 9.2 fL (11/18/16 6:34 PM) Segs [45.0-75.0 %] 48.1 % (11/18/16 6:34 PM) Lymphocytes 41.7 % [20.0-40.0 %] *HI* (11/18/16 6:34 PM) Monocytes [2.0-12.0 6.2 % %] (11/18/16 6:34 PM) Eosinophils [0.0-4.0 3.0 % %] (11/18/16 6:34 PM) Basophils [0.0-1.0 1.0 % %] (11/18/16 6:34 PM) Segs-Bands # 3.0 K/CMM [1.5-8.1 K/CMM] (11/18/16 6:34 PM) Lymphocytes # 2.6 K/CMM [1.0-5.5 K/CMM] (11/18/16 6:34 PM) Monocytes # [0.0-0.8 0.4 K/CMM K/CMM] (11/18/16 6:34 PM) Eosinophils # 0.2 K/CMM [0.0-0.5 K/CMM] (11/18/16 6:34 PM) Basophils # [0.0-0.2 0.1 K/CMM K/CMM] (11/18/16 6:34 PM) PT [12.0-14.7 13.6 seconds seconds] (11/18/16 6:34 PM) INR [0.85-1.17] 1.02 (11/18/16 6:34 PM) Immunizations No data available for this [...]
--- OUTSIDE RECORDS SUMMARY | 2018-11-02 06:26 | XMS REPORT | Summary of Care ---
Author Author [facility] Outpatient Imaging [facility] Outpatient Imaging [facility] Address Unknown Phone Unavailable Encounter HQ Josentr_jennifer(FIN) [id number] Date(s): 09/08/16 - 09/08/16 [facility] Outpatient [address] [phone] Discharge Disposition: Home or Self Care Attending Physician: Gabriela Bell MD Vital Signs No [...]
--- OUTSIDE RECORDS SUMMARY | 2018-11-02 06:26 | XMS REPORT | Summary of Care ---
Author Author [facility] Organization [facility] Address Unknown Phone Unavailable Encounter HQ Drew(EDEL) [id number] Date(s): 01/20/17 - 01/20/17 [facility] [address] [phone] Discharge Disposition: Home or Self Care Attending Physician: Katarzyna Thomas MD Referring Physician: Katarzyna Thomas MD Vital Signs No data available for this section Problem List Condition Effective Dates Status Health Status Informant Rash(Confirmed) Resolved HTN Resolved (hypertension)(Confi rmed) Frequent Resolved urination(Confirmed) Sickle cell Resolved disease(Confirmed) Allergies, Adverse Reactions, Alerts Substance Reaction Severity Status codeine Active traMADol Active Medications No data available for this [...]
--- OUTSIDE RECORDS SUMMARY | 2018-11-02 06:26 | XMS REPORT | Summary of Care ---
Author Author [facility] Organization [facility] Address Unknown Phone Unavailable Encounter SHRUTI Russell(EDEL) [id number] Date(s): 08/06/16 - 08/07/16 [facility] [address] [place] [address]- Discharge Diagnosis: Abdominal pain Discharge Disposition: Home or Self Care Attending Physician: Bello Page MD Vital Signs 1 2 3 Most recent to oldest [Reference Range]: 170.18 cm (08/06/16 6:11 PM) Height 98.4 DegF (08/07/16 2:21 AM) 98.4 DegF (08/06/16 8:47 PM) 98.1 DegF (08/06/16 6:11 PM) Temperature Oral [96.4-99.1 DegF] 155/75 mmHg *HI* (08/07/16 2:21 AM) 134/80 mmHg (08/06/16 6:11 PM) Blood Pressure [90-140/60-90 mmHg] 140 mmHg (08/06/16 8:47 PM) Systolic Blood Pressure [90-140 mmHg] 81 mmHg (08/06/16 8:47 PM) Diastolic Blood Pressure [60-90 mmHg] 18 BRMIN (08/07/16 2:21 AM) 18 BRMIN (08/06/16 8:47 PM) 17 BRMIN (08/06/16 6:11 PM) Respiratory Rate [14-20 BRMIN] 74 bpm (08/07/16 2:21 AM) 74 bpm (08/06/16 8:47 PM) 77 bpm (08/06/16 6:11 PM) Peripheral Pulse Rate [60-100 bpm] 77.273 kg (08/06/16 6:11 PM) Weight 26.68 m2 (08/06/16 6:11 PM) Body Mass Index Problem List No data available for this section Allergies, Adverse Reactions, Alerts Substance Reaction Severity Status codeine Active Medications ibuprofen 800 mg oral tablet 800 mg=1 tab, PO, Q6H, PRN Fever or Pain, Take with food, X 10 day, # 40 tab, 0 Refill(s) Start Date: 08/07/16 Stop Date: 08/17/16 Status: Ordered morphine Sulfate 4 mg, 1 mL, Route: IVP, Drug form: SOLN, ONCE, Dosing Weight 77.273, kg, Priorit y: STAT, Start date: 08/06/16 18:19:00 [employer]FORMAT[employer] INSTRUCTOR, Stop date: 08/06/16 18:19:00 HE[employer] INFORMATICS INSTRUCTOR Notes: (Same as:MORPhine Sulfate) Start Date: 08/06/16 Stop Date: 08/06/16 Status: Completed ondansetron 4 mg, 2 mL, Route: IVP, Drug form: INJ, ONCE, Dosing Weight 77.273, kg, Priority : STAT, Start date: 08/06/16 18:19:00 HEALTH INFORMATICS INSTRUCTOR, Stop date: 08/06/16 18:19:00 HEALTH INFORMATICS INSTRUCTOR Notes: (Same as: Hilary) MEDICATION WASTE Product Size: 4 mgProduct Was haroon: ___ mg Start Date: 08/06/16 Stop Date: 08/06/16 Status: Completed Saline Flush 0.9% 10 mL, Route: IVP, Drug Form: INJ, Dosing Weight 77.273, kg, PRN, PRN Line Flush , Start date: 08/06/16 18:19:00 HEALTH INFORMATICS INSTRUCTOR, Duration: 30 day, Stop date: 09/05/16 18:18 :00 HEALTH INFORMATICS INSTRUCTOR Notes: (Same as: BD Posiflush) Start Date: 08/06/16 Stop Date: 08/07/16 Status: Discontinued Sodium Chloride 0.9% (Bolus) IV 1,000 mL, 2,000 ml/hr, Infuse Over: 30 minutes, Route: IV, 1,000, Drug form: INJ , ONCE, Priority: STAT, Dosing Weight 77.273 kg, Start date: 08/06/16 18:19:[address], Duration: 1 doses or times, Stop date: 08/06/16 18:19:00 HEALTH INFORMATICS INSTRUCTOR Start Date: 08/06/16 Stop Date: 08/06/16 Status: Completed Ultram 50 mg oral tablet 50 mg=1 tab, PO, Q6H, PRN pain, X 4 day, # 16 tab, 0 Refill(s) Start Date: 08/07/16 Stop Date: 08/11/16 Status: Ordered Zofran ODT 4 mg oral tablet, disintegrating 4 mg=1 tab, PO, Q8H, PRN as needed for nausea/vomiting, X 3 day, # 9 tab, 0 Refi ll(s) Start Date: 08/07/16 Stop Date: 08/10/16 Status: Ordered Results ELECTROLYTES Most recent to 1 oldest [Reference Range]: Sodium Lvl [135-145 140 mEq/L mEq/L] (08/06/16 8:20 PM) Potassium Lvl 3.8 mEq/L [3.5-5.1 mEq/L] (08/06/16 8:20 PM) Chloride Lvl [95-109 107 mEq/L mEq/L] (08/06/16 8:20 PM) CO2 [24-32 mEq/L] 26 mEq/L (08/06/16 8:20 PM) AGAP [10.0-20.0 10.8 mEq/L mEq/L] (08/06/16 8:20 PM) CHEM PANEL Most recent to 1 oldest [Reference Range]: Creatinine Lvl 0.73 mg/dL [0.50-1.40 mg/dL] (08/06/16 8:20 PM) eGFR 126 mL/min/1.73m2 1 *NA* (08/06/16 8:20 PM) BUN [7-22 mg/dL] 10 mg/dL (08/06/16 8:20 PM) B/C Ratio [6-25] 14 (08/06/16 8:20 PM) Glucose Lvl [70-99 89 mg/dL mg/dL] (08/06/16 8:20 PM) Total Protein 7.7 g/dL [6.4-8.4 g/dL] (08/06/16 8:20 PM) Albumin Lvl [3.5-5.0 4.2 g/dL g/dL] (08/06/16 8:20 PM) Globulin [2.7-4.2 3.5 g/dL g/dL] (08/06/16 8:20 PM) A/G Ratio [0.7-1.6] 1.2 (08/06/16 8:20 PM) Calcium Lvl 9.0 mg/dL [8.5-10.5 mg/dL] (08/06/16 8:20 PM) ALT [0-65 unit/L] 16 unit/L (08/06/16 8:20 PM) AST [0-37 unit/L] 10 unit/L (08/06/16 8:20 PM) Alk Phos [39-136 40 unit/L unit/L] (08/06/16 8:20 PM) Bili Total [0.2-1.3 0.5 mg/dL mg/dL] (08/06/16 8:20 PM) Amylase Lvl [25-115 99 unit/L unit/L] (08/06/16 8:20 PM) Lipase Lvl [73-393 150 unit/L unit/L] (08/06/16 8:20 PM) 1Result Comment: The eGFR is calculated [...] be mul tiplied by the estimated BMI. URINE AND STOOL Most recent to 1 oldest [Reference Range]: UA Turbidity [Clear] Clear (08/06/16 8:53 PM) UA Color Ltyellow *NA* (08/06/16 8:53 PM) UA pH [5.0-8.0] 7.0 (08/06/16 8:53 PM) UA Spec Grav 1.010 [<=1.030] (08/06/16 8:53 PM) UA Glucose [Negative Negative mg/dL mg/dL] *NA* (08/06/16 8:53 PM) UA Blood [Negative] Negative (08/06/16 8:53 PM) UA Ketones [Negative Negative mg/dL mg/dL] *NA* (08/06/16 8:53 PM) UA Protein [Negative Negative mg/dL mg/dL] (08/06/16 8:53 PM) UA Urobilinogen <=1.0 mg/dL [0.1-1.0 mg/dL] *NA* (08/06/16 8:53 PM) UA Bili [Negative] Negative *NA* (08/06/16 8:53 PM) UA Leuk Est Negative [Negative] (08/06/16 8:53 PM) UA Nitrite Negative [Negative] (08/06/16 8:53 PM) UA WBC [0-5 /HPF] 1 /HPF (08/06/16 8:53 PM) UA RBC [0-2 /HPF] 2 /HPF (08/06/16 8:53 PM) UA Bacteria [None Occasional /HPF Seen /HPF] *NA* (08/06/16 8:53 PM) UA Sq Epi [Few /LPF] Occasional /LPF *NA* (08/06/16 8:53 PM) HEMATOLOGY Most recent to 1 oldest [Reference Range]: WBC [3.7-10.4 K/CMM] 6.0 K/CMM (08/06/16 8:20 PM) RBC [4.20-5.40 3.99 M/CMM M/CMM] *LOW* (08/06/16 8:20 PM) Hgb [12.0-16.0 g/dL] 12.0 g/dL (08/06/16 8:20 PM) Hct [36.0-48.0 %] 35.5 % *LOW* (08/06/16 8:20 PM) MCV [80.0-98.0 fL] 89.1 fL (08/06/16 8:20 PM) MCH [27.0-31.0 pg] 30.1 pg (08/06/16 8:20 PM) MCHC [32.0-36.0 33.8 g/dL g/dL] (08/06/16 8:20 PM) RDW [11.5-14.5 %] 13.2 % (08/06/16 8:20 PM) Platelet [133-450 235 K/CMM K/CMM] (08/06/16 8:20 PM) MPV [7.4-10.4 fL] 9.3 fL (08/06/16 8:20 PM) Segs [45.0-75.0 %] 55.7 % (08/06/16 8:20 PM) Lymphocytes 37.6 % [20.0-40.0 %] (08/06/16 8:20 PM) Monocytes [2.0-12.0 4.9 % %] (08/06/16 8:20 PM) Eosinophils [0.0-4.0 1.0 % %] (08/06/16 8:20 PM) Basophils [0.0-1.0 0.8 % %] (08/06/16 8:20 PM) Segs-Bands # 3.3 K/CMM [1.5-8.1 K/CMM] (08/06/16 8:20 PM) Lymphocytes # 2.3 K/CMM [1.0-5.5 K/CMM] (08/06/16 8:20 PM) Monocytes # [0.0-0.8 0.3 K/CMM K/CMM] (08/06/16 8:20 PM) Eosinophils # 0.1 K/CMM [0.0-0.5 K/CMM] (08/06/16 8:20 PM) Immunizations No data available for this section Procedures Procedure Date Related Diagnosis Body Site Cholecystectomy Hysterectomy1 1Still has left ovary. Social History Social History Type Response Smoking Status Never smoker; Exposure to Tobacco Smoke None; Cigarette Smoking Last 365 Days No; Reg Smoking Cessation Counseling No Assessment and Plan No data available for this section
[2018-11-02 10:32] VITALS: BP 115/76
== END | disposition home or self-care (01) ==
LOC: OR 06:21
PROVIDERS: ATTEND Internal Medicine Gastroenterology
DX: K59.01 Slow transit constipation (principal); K31.7 Polyp of stomach and duodenum; K29.70 Gastritis, unspecified, without bleeding; K31.84 Gastroparesis; K58.9 Irritable bowel syndrome, unspecified; K21.9 Gastro-esophageal reflux disease without esophagitis; K64.0 First degree hemorrhoids; K64.4 Residual hemorrhoidal skin tags; Z71.3 Dietary counseling and surveillance; D64.9 Anemia, unspecified; E66.9 Obesity, unspecified; G40.909 Epilepsy, unspecified, not intractable, without status epilepticus; G47.33 Obstructive sleep apnea (adult) (pediatric); I25.10 Atherosclerotic heart disease of native coronary artery without angina pectoris; K76.0 Fatty (change of) liver, not elsewhere classified; I25.2 Old myocardial infarction; Z88.6 Allergy status to analgesic agent; Z88.8 Allergy status to other drugs, medicaments and biological substances; Z01.810 Encounter for preprocedural cardiovascular examination; Z01.812 Encounter for preprocedural laboratory examination; Z68.30 Body mass index [BMI] 30.0-30.9, adult; Z83.79 Family history of other diseases of the digestive system
CPT/HCPCS: 36415; 43236; 43239; 45380; 85025; 93005; J0587; J2250; J2270; J2704